=== PATIENT | male | born 1945 | race Caucasian/White ===

== ENCOUNTER 2025-03-02 20:41 | Inpatient (IN) | payer OTHER, SELFPAY ==
[2025-03-02 18:12] VITALS: BP 132/61
[2025-03-02 18:30] VITALS: BMI 32.6
[2025-03-02] MEDS: TYLENOL 1000 MG PO (18:46)
--- NOTE | 2025-03-02 18:47 | ED.GENMED ---
History of Present Illness
General
Chief Complaint: Fall
Source: patient and ambulance crew
Time Seen by Provider: 03/02/25 18:33
History of Present Illness
History of Present Illness:
80-year-old male with past medical history of insulin-dependent diabetes, CAD status postcardiac stenting presenting to the emergency department for evaluation after he reportedly fell onto the floor around 3 AM this morning while attempting to go
to the bathroom, found him around noon, unclear as to why he waited until 6:30 PM to contact ambulance to bring him to the hospital. Patient is without any complaints. Reportedly found by EMS covered in stool and has a full Claire catheter
bag. Patient states he did strike the right side of his forehead onto the ground but denies any loss of consciousness, vomiting, visual changes or headache. Patient states his did take his temperature while at home today and he was aware that
he had a fever but did not take anything for the fever. Patient does endorse a mild cough over the last couple of days when prompted. No known sick contacts, recent travel or recent antibiotics.
Past History
Past History
ED Past Medical History: CAD and IDDM
ED Past Surgical History: Cardiac
Social History
Tobacco: Non-smoker
Alcohol: None
Drug: None
Personal:
Living: with family
Review of Systems
Review of Systems
All Other Systems: ROS reviewed and negative except as documented in HPI and ROS
Phy Exam
Physical Exam
Physical Exam:
GENERAL: Alert , in no apparent distress, appears older than stated age
HEAD: Normocephalic atraumatic
EYE: Clear conjunctiva
NECK: Supple
ENT: o/p clr, dry mucous membranes
CARDIAC: Regular rate and rhythm, no murmur.
LUNGS: Clear breath sounds bilaterally, no acute respiratory distress, no wheezes/rales/rhonchi
ABDOMEN: Soft, without focal tenderness, no r/g, no cvat
NEUROLOGICAL: Alert and oriented x 3
SKIN: Warm and dry, skin intact.
MUSCULOSKELETAL: No edema, well perfused.
PSYCH: Normal and appropriate interaction.
Scores
Heart Failure Risk
Heart Failure Risk Score: Not Applicable
Heart Score for Chest Pain Patients
STEMI patient?: Not applicable
Withdrawal Assessment of Alcohol
Withdrawal Assessment Completed?: Not applicable
Sepsis
Sepsis Screening
Sepsis Assessment: Severe Sepsis
Sepsis Screening: ARF-Creatinine >2.0
Sepsis Screen
Sepsis Screen: Severe Sepsis
Date: 03/02/25
Time: 22:06
Course
Orders/Labs/Results
Orders:
Orders
03/02/25 18:34
CPK [Creatine Phosphokinase] Urgent
Complete Blood Count/With Diff Urgent
Comprehensive Metabolic Panel Urgent
Manual Differential Urgent
Urinalysis Reflex To Culture Urgent
Date Specimen was Collected: 03/02/25
Time Specimen was Collected: 18:31
Urine Microscopic Reflex Cult Urgent
Urine Culture Urgent
JUSTO Source: U
Specimen Description:
Date Specimen was Collected: 03/02/25
Time Specimen was Collected: 18:31
03/02/25 18:44
Acetaminophen [Tylenol] 1,000 mg .ROUTE .STK-MED ONE
03/02/25 18:46
CT Head W/o Iv Contrast Urgent
Comment:
Reason For Exam: fall, on effient
Acetaminophen [Tylenol] 1,000 mg PO NOW STA
CR Chest Portable - 1 View Urgent
Comment:
Reason For Exam: fall, weakness, fever
Reason Study Needs to be Portable: Patient Unstable
03/02/25 18:48
COVID-19 Antigen Urgent
Source: Nasal Swab
Influenza A+B Rapid Molecular Urgent
JUSTO Source: Nasal Swab
Specimen Description:
03/02/25 18:50
Electrocardiogram (*1) Urgent
Reason for Study: Fatigue / Weakness
EKG- Treatment ONCE
03/02/25 19:05
Cefepime HCl [Maxipime] 2,000 mg IV NOW STA
03/02/25 19:09
Sterile Water [Sterile Water For Injection] 10 ml .ROUTE .STK-MED ONE
03/02/25 19:13
0.9% Sodium Chloride 1000 ml [Nss] 1,000 ml IV BOLUS
03/02/25 19:23
Lactic Acid Q4H
Comment: CANCEL 2nd LACTIC ACID IF 1st LACTIC ACID IS LESS THAN 2
Blood Culture Q30M
JUSTO Source: Blood/Venous
Specimen Description:
Blood Culture Q30M
JUSTO Source: Blood/Venous
Specimen Description:
03/02/25 20:13
0.9% Sodium Chloride 1000 ml [Nss] 1,000 ml IV BOLUS
03/02/25 20:24
Admit/Transfer Patient As Directed
Co-Sign Provider:
Level of Care: Inpatient admission
Assign to:: IMU- Intermediate Care
Physician / Group: [facility]
Diagnosis: CAUTI, Sepsis
Reason for Hospitalization: CAUTI, Sepsis
Expected length of stay greater than two midnights?: Yes
ELOS- Estimated Length of Stay in days: 3
I certify the patient meets the requirements for IP care: Yes
03/02/25 20:25
PRN Pain Medication Management As Directed
May give lesser potent ordered pain med per pt: Yes
preference::
Protocol:: Medication orders for pain may be administered in a
manner that supports deferring to patient preference
when the pt is:
- Requesting an ordered lesser potent pain medication.
Least to most potent pain medications are defined
as: acetaminophen < NSAID < tramadol < opioids
(morphine, oxycodone, hydromorphone).
- Requesting a lesser dose of the same medication IF
ORDERED.
- Requesting a less intrusive route of administration
if both routes are prescribed by the provider (PO <
IV).
03/02/25 20:26
Code Status As Directed
Resuscitation Status: Full Code
03/02/25 23:00
Lactic Acid Q4H
Comment: CANCEL 2nd LACTIC ACID IF 1st LACTIC ACID IS LESS THAN 2
Abnormal Lab Results
03/02/25 03/02/25
18:34 19:23
WBC 19.4 H 10^3/uL
(4.8-10.8)
RBC 3.56 L 10^6/uL
(4.70-6.10)
Hgb 10.2 L g/dL
(13.0-18.0)
Hct 28.8 L %
(39.0-52.0)
Abs Neuts (Manual) 18.6 H 10^3/uL
(1.4-6.5)
Segmented Neutrophils 86 H %
(42-75)
Band Neutrophils 10 H %
(0-3)
Lymphocytes (Manual) 2 L %
(20-51)
Monocytes (Manual) 1 L %
(2-9)
Carbon Dioxide 15 L mmol/L
(22-30)
BUN 59 H mg/dl
(9-20)
Creatinine 3.2 H mg/dL
(0.7-1.3)
Glucose 279 H mg/dl
(70-99)
Lactic Acid 3.1 H mmol/L
(0.7-2.0)
Calcium 7.9 L mg/dl
(8.4-10.2)
AST 87 H U/L
(17-59)
Creatine Kinase 3996 H U/L
(55-170)
Albumin 3.2 L g/dl
(3.5-5.0)
Urine Ketones 1+ A
(Negative)
Ur Occult Blood Reflex 4+ A
(Negative)
Leukocyte Esterase Rfl 3+ A
(Negative)
Urine WBC (Reflex) >100 A /HPF
(0-5)
Urine Glucose 2+ A
(Negative)
Urine Albumin (Reflex) 3+ A
(Neg - Trace)
03/02/25 18:34
03/02/25 18:34
Vital Signs
Initial and Last Documented VS:
Initial Vital Signs
Temp Pulse Resp BP Pulse Ox
102.3 F H 87 18 132/61 92
03/02/25 18:12 03/02/25 18:12 03/02/25 18:12 03/02/25 18:12 03/02/25 18:12
Last Documented Vital Signs
Temp Pulse Resp BP Pulse Ox
102.3 F H 82 29 117/56 95
03/02/25 18:12 03/02/25 21:45 03/02/25 21:45 03/02/25 21:00 03/02/25 21:45
MDM/Problems Addressed
Differential Diagnosis Includes:
Accidental fall/generalized weakness, given fever I do suspect there is likely component of metabolic encephalopathy, question UTI given chronic indwelling Claire catheter versus pulmonary source given reported cough, electrolyte derangement,
rhabdomyolysis
MDM/Problems Addressed:
80-year-old male presenting to the emergency department for evaluation after he had a fall early this morning, on the ground for approximately 9 hours. Arrived to the ER here soiled in his own stool, urine Claire bag had not been changed at all
today. Noted to have a fever of 102.3 and had not been given any antipyretics. Patient does endorse a slight cough. He is on Effient for his CAD. Given the reported head injury will obtain a CT of the head. Infectious etiology suspected to be
cause of symptoms. Patient states that this was his first fall ever. Given patient's condition upon his arrival I do anticipate patient will require admission for further care.
*Radiology
Radiology exam reviewed: preliminary read by ED provider (Suspected bilateral lower lung pneumonia) and radiology read reviewed
*Pulse Oximetry
Patient hypoxic: no
*Critical Care Note
Total Time (30-74mins, 75-104mins- exclusive of procedures): Not Applicable
Patient Management
Discussion with other providers: Hospitalist
Escalation/DeEscalation of care consider admission/obs:
Patient's lactic acid greater than 3. He received 500 mL of normal saline on the way to the ER and 1 L total while here. Second liter was ordered which puts patient at his sepsis fluid bolus therapy. Based off of workup it appears patient could
have fever related to both urinary tract infection as well as pneumonia. He has rhabdomyolysis with acute kidney injury. He remains stable with otherwise normal vitals. Hospitalist team to admit.
ED Attending Note
-
Portions of this chart may have been created with voice recognition software.� Occasional wrong word or��sound alike� substitutions may have occurred due to the inherent limitations of voice recognition software.
Discharge Plan
Departure
Patient Disposition: Admit
Date of Disposition: 03/02/25
Time of Disposition: 19:26
Presentation/result/management discussed w/ accepting MD/DO: Hospitalist
Discharge Problem:
Sepsis, Rhabdomyolysis, FELIZ (acute kidney injury), Acute UTI, Pneumonia
Interventions
Interventions:
*Risk Screen - Suicide Last Done: 03/02/25 18:12
*General Assessment Last Done: 03/02/25 18:12
*Neglect/Abuse Screening Last Done: 03/02/25 18:12
*ED- Fall Risk Assessment Last Done: 03/02/25 18:12
*ED COVID-19 Vaccine History Last Done: 03/02/25 18:12
ED-Musculoskeletal Assessment Last Done: 03/02/25 18:28
ED- Neurological Assessment Last Done: 03/02/25 18:26
ED-Skin Assessment Last Done: 03/02/25 18:24
[2025-03-02 18:49] LABS: Hematocrit 28.8 % (39.0-52.0); Hemoglobin 10.2 g/dL (13.0-18.0); Mean Corp Hgb Conc. 35.4 g/dL (33.0-37.0); Mean Corpuscular Hgb 28.7 pg (27.0-31.0); Mean Corpuscular Volume 80.9 fL (80.0-94.0); Mean Platelet Volume 9.2 fL (7.4-10.4); Platelet Count 188 10^3/uL (130-400); Red Blood Cell Count 3.56 10^6/uL (4.70-6.10); Red Cell Dist. Width 14.1 % (11.5-14.5); White Blood Cell Count 19.4 10^3/uL (4.8-10.8)
[2025-03-02 19:00] VITALS: BP 127/54
[2025-03-02 19:01] LABS: ALT (SGPT) 32 U/L (0-50); AST (SGOT) 87 U/L (17-59); Albumin 3.2 g/dl (3.5-5.0); Alkaline Phosphatase 80 U/L (38-126); Blood Urea Nitrogen 59 mg/dl (9-20); Calcium 7.9 mg/dl (8.4-10.2); Carbon Dioxide 15 mmol/L (22-30); Chloride 107 mmol/L (98-107); Estimated Creatinine Clearance 23 ml/min; Glucose 279 mg/dl (70-99); Potassium 5.1 mmol/L (3.5-5.1); Sodium 137 mmol/L (135-145); Total Bilirubin 0.7 mg/dl (0.2-1.3); Total Protein 6.5 g/dl (6.3-8.2); eGFR 18.72
[2025-03-02 19:11] LABS: Creatine Phosphokinase 3996 U/L (55-170)
[2025-03-02 19:19] LABS: COVID-19 Antigen Negative (Negative)
[2025-03-02] MEDS: NSS 1000 IV ×3 (19:24→23:39)
[2025-03-02] MEDS: MAXIPIME 2000 MG IV (19:25)
[2025-03-02 19:28] LABS: Absolute Neutrophils -Man Diff 18.6 10^3/uL (1.4-6.5); Band Neutrophils 10 % (0-3); Lymphocytes 2 % (20-51); Metamyelocytes 1 % (-); Monocytes 1 % (2-9); Segmented Neutrophils 86 % (42-75)
[2025-03-02 19:29] LABS: Normal RBC Morphology Yes; Platelets Checked Yes; Total Cells Counted 100
[2025-03-02 19:55] LABS: Urine Albumin 3+ (Neg - Trace); Urine Bilirubin Negative (Negative); Urine Character Cloudy (Clear); Urine Color Yellow; Urine Glucose 2+ (Negative); Urine Ketone 1+ (Negative); Urine Leukocyte 3+ (Negative); Urine Nitrite Negative (Negative); Urine Occult Blood 4+ (Negative); Urine Urobilinogen Negative (Neg - 1+)
[2025-03-02 19:58] LABS: Lactic Acid 3.1 mmol/L (0.7-2.0)
[2025-03-02 20:00] VITALS: BP 122/59
[2025-03-02 20:21] LABS: Urine White Cell >100 /HPF (0-5)
--- NOTE | 2025-03-02 20:31 | HPS.HSE ---
Family Physician
-
Family Physician: NOT KNOW UNKNOWN - PT DOES
Chief Complaint
-
Fever, Fall, Malaise
History of Present Illness
Patient is an 80y M with PMH significant for ASCVD, DM-II and BPH who presents to ED for evaluation after fall early this AM. History obtained from patient and multiple family members at the bedside. Patient states that he was feeling somewhat
weak / tired yesterday. states that he had a fever at home of 103.7 and had a mild, hacking cough. He woke around 3 AM seated in a chair. He states that he 'slid' out of the chair and fell to the floor. He landed on his L elbow. He denies
striking his head or any LOC, etc. Patient was unable to get up off of the floor and remained there for about 12 hours. Family eventually convinced him to call for EMS and he was brought to the ED for further evaluation.
Patient was incontinent of stool during his time down.
He seemed SOB according to family - with noted conversational dyspnea.
He denies any chest pain, sore throat, abdominal pain He had N/V this AM while lying on the floor.
Patient states that he was seen by Dr. Hill at [facility] on Wednesday for chronic urinary issues / BPH. Claire catheter was reportedly placed at that time.
Patient states that his urine from the catheter has been 'brown' appearing since it was initially placed.
On arrival to the ED today, patient is noted to have grossly purulent urine in a leg bag.
Patient states that he has received most of his prior care at [facility]. No previous visits here.
His PCP is Dr. Malcom Guevara.
Medical History
Past Medical History
Past Medical History: Reports Other
Additional Past Medical History:
ASCVD
DM-II
Obesity
BPH / Urinary Retention
Past Surgical History: Reports Other
Additional Past Surgical History:
PTCA with Stents
Pilonidal Cyst
Social History
Tobacco: Non-smoker
Alcohol: None
Drug: None
Family History
Family History: Not pertinent
Allergies / Home Medications
Allergies reflects when Allergies were last updated in [employer].
Home Medications with original date entered in [employer]
Allergy/Medication List:
Allergies
Allergy/AdvReac Type Severity Reaction Status Date / Time
egg Allergy Hives Verified 03/02/25 18:27
tri Allergy Hives Uncoded 03/02/25 18:27
Home Medications
ibuprofen 800 mg tablet 800 mg PO Q8HPRN PRN mild pain 03/02/25
insulin aspar prot-insulin aspart 100 unit/mL (70-30) subcutaneous pen (Novolog Mix 70-30FlexPen U-100) 16 unit SC BID 03/02/25
prasugrel HCl 10 mg tablet 10 mg PO HS 03/02/25
rosuvastatin 20 mg tablet 20 mg PO DAILY 03/02/25
sacubitril 49 mg-valsartan 51 mg tablet (Entresto) 1 tab PO BID 03/02/25
sitagliptin phosphate 50 mg-metformin 1,000 mg tablet (Janumet) 1 tab PO BID 03/02/25
tamsulosin 0.4 mg capsule 0.4 mg PO BID 03/02/25
Review of Systems
-
History Source: Patient and Family
A 12 point ROS was completed and negative except as noted: Yes
Constitutional: Reports Fever, Fatigue and Chills
EENT: Denies Sore Throat
Respiratory: Reports Cough and Trouble Breathing
Cardiac: Denies Chest Pain or Palpitations
Abdomen/GI: Reports Nausea, Vomiting and Other (Fecal incontinence); Denies Abdominal Pain, Bloody Stools or Black Stools
: Reports Other (Claire draining purulent urine.)
Musculoskeletal: Reports Edema (decreased from usual baseline.); Denies Joint Pain
Neurological: Reports Weakness; Denies Dizzy or Headache
Psych: Denies Depression or Anxiety
Physical Exam
Vital Signs
Vital Signs
Temp Pulse Resp BP Pulse Ox
102.3 F H 89 29 122/59 96
03/02/25 18:12 03/02/25 20:00 03/02/25 19:30 03/02/25 20:00 03/02/25 19:45
Physical Exam
General: Other (Ill-appearing 80y M.)
HEENT: Other (Very dry MM. Neck supple.)
Respiratory: Clear; No Wheezes, Rales or Rhonchi
Cardiac: S1/S2 and Regular Rhythm; No Murmur
GI: Soft, Non Tender, Non Distended and Normal Bowel Sounds
Genito-urinary: Other (Claire in place with groslly purulent urine in leg bag. Suprapubic fullness. No CVAT.)
Musculoskeletal: No Clubbing, No Cyanosis and Other (Chronic LE edema appears improved from prior baseline (based on skin changes). )
Neuro: AO x 3 and Nonfocal/grossly intact
Laboratory Results
-
03/02/25 18:34
03/02/25 18:34
Laboratory Results
Lactic Acid 3.1 mmol/L (0.7-2.0) H 03/02/25 19:23
Total Bilirubin 0.7 mg/dl (0.2-1.3) 03/02/25 18:34
AST 87 U/L (17-59) H 03/02/25 18:34
ALT 32 U/L (0-50) 03/02/25 18:34
Alkaline Phosphatase 80 U/L (38-126) 03/02/25 18:34
Impression/Plan
-
A/P: Patient is an 80y M with PMH significant for ASCVD, DM-II and BPH who presents to ED for evaluation after fall at home, fever and malaise.
CAUTI
Sepsis secondary to the above
- Admit for further evaluation and treatment.
- Patient presents with fever, leukocytosis and grossly purulent urine via Claire catheter.
- Claire was placed only on Wednesday - check for evidence of retention and flush or replace catheter if needed.
- IV abx with cefepime pending culture data.
- Follow fever curve.
- Supportive care with IVFs, antipyretics, etc.
Fall at Home
Rhabdomyolysis
- Fall at 3 AM and on the floor for about 12 hours before EMS called.
- CPK elevation to 3996. FELIZ with 4+ blood on UA (RBCs not quantified due to too numerous WBCs).
- Continue IVF support and follow for changes in renal function / improvement in CPK levels.
- PT eval for gait safety / balance.
- Patient denies any significant pain, injury, trauma.
- CT head done in the ED was unremarkable.
FELIZ v CKD
- Given presentation, suspect component of FELIZ.
- SCr = 3.2 with no prior values for comparison.
- Send for records from PCP. Hold Entresto acutely. Avoid NSAIDs.
- Claire draining urine - check bladder scan and flush catheter or replace if needed.
- US for further evaluation.
- IVFs as noted above and follow for improvement in renal function.
BPH
Urinary Retention
- Patient states that Claire was newly placed on Wednesday at Dr. Hill's office at [facility].
- He reports that urine has appeared 'brown' since Claire placed.
- Maintain catheter for now.
- Continue tamsulosin.
- Will need follow-up with Urology after discharge.
Normocytic Anemia
- Unclear etiology / chronicity. No gross blood loss.
- Check iron studies, etc.
- Follow H&H for changes - especially with IVF resuscitation.
ASCVD
Chronic HF - Unknown Type
- Stable. No chest pain.
- Change Effient to ASA acutely.
- On Entresto but not chronic diuretics - hold acutely given FELIZ.
- Has chronic LE edema with evident recent improvement by exam.
- Follow I/Os, daily weights.
- Review outpatient records when available.
DM-II
- Labile glucose control per family.
- Hold PO medications acutely.
- Begin low-dose Lantus and follow glucose.
- Cover with SSI as needed.
- Update A1C.
DVT Prophylaxis: SCDs
Code Status: Full
[2025-03-02 21:00] VITALS: BP 117/56
[2025-03-02 22:00] VITALS: BP 117/57
[2025-03-02 23:04] LABS: Glucose - Point of Care 268 mg/dl (70-99)
[2025-03-02 23:11] VITALS: BMI 30.6
[2025-03-02] MEDS: LANTUS 0.08 UNITS SC (23:39)
[2025-03-03] VITALS (13 sets, daily range): BP systolic 101–114; BP diastolic 48–66; PULSE 74; O2SAT 96; BMI 30.9
[2025-03-03 00:24] LABS: Lactic Acid 1.9 mmol/L (0.7-2.0)
--- NOTE | 2025-03-03 01:23 | PTCARENOTE ---
Pt brought up by ED RN. Pt talking answering question appropriately. ED RN informed this RN Claire was just replaced down in ED. Pt having bloody urine output. After moving Pt to bed urine output turning to brown blood clots then to purulent
drainage. Bladder scan done with only 12ml showing. Pt having multiple abrasions and bruising from fall at home, see work list. Pt has no complaints at this time. Assessment care and vitals as charted.
[2025-03-03] MEDS: NSS 1000 IV ×2 (03:46→15:35)
[2025-03-03 05:27] LABS: Hematocrit 26.5 % (39.0-52.0); Hemoglobin 9.2 g/dL (13.0-18.0); Mean Corp Hgb Conc. 34.7 g/dL (33.0-37.0); Mean Corpuscular Hgb 28.1 pg (27.0-31.0); Mean Platelet Volume 9.7 fL (7.4-10.4); Platelet Count 172 10^3/uL (130-400); Red Blood Cell Count 3.27 10^6/uL (4.70-6.10); Red Cell Dist. Width 14.1 % (11.5-14.5); White Blood Cell Count 20.8 10^3/uL (4.8-10.8)
[2025-03-03 05:55] LABS: Iron < 20 ug/dl (49-181)
[2025-03-03 06:14] LABS: Blood Urea Nitrogen 59 mg/dl (9-20); Calcium 7.8 mg/dl (8.4-10.2); Carbon Dioxide 16 mmol/L (22-30); Chloride 111 mmol/L (98-107); Creatine Phosphokinase 3213 U/L (55-170); Estimated Creatinine Clearance 30 ml/min; Glucose 258 mg/dl (70-99); Potassium 5.1 mmol/L (3.5-5.1); Sodium 138 mmol/L (135-145); Total Iron Binding Capacity 169 ug/dl (261-462); eGFR 26.44
[2025-03-03 06:41] LABS: Vitamin B12 405 pg/ml (239-931)
[2025-03-03] MEDS: NOVOLOG FLEXPEN-MODERATE RESISTANCE 3 UNITS SC ×2 (07:55→16:55)
[2025-03-03] MEDS: LOW STRENGTH ASPIRIN 81 MG PO (07:56)
[2025-03-03] MEDS: DESENEX/MITRAZOL/ZEASORB 1 APPLIC TOPICAL ×2 (07:56→21:23)
[2025-03-03] MEDS: FLOMAX 0.4 MG PO ×2 (07:56→21:23)
[2025-03-03 08:05] LABS: Glucose - Point of Care 219 mg/dl (70-99)
--- NOTE | 2025-03-03 08:15 | W.PN.HOSP.TC ---
Today's Communication/Plan
-
Transfer to telemetry
Continue with IV antibiotics
Assessment / Plan
Assessment / Plan
A/P: Patient is an 80y M with PMH significant for ASCVD, DM-II and BPH who presents to ED for evaluation after fall at home, fever and malaise.
CAUTI
Sepsis secondary to the above
- Afebrile this morning. Hemodynamically stable. Nontoxic looking. Normalized lactic acid
- Patient presents with fever, leukocytosis and grossly purulent urine via Claire catheter on admission.
- Claire was placed only on Wednesday-draining well.
- IV abx with cefepime pending culture data.
- Follow fever curve.
- Supportive care
Fall at Home
Rhabdomyolysis
- Fall at 3 AM and on the floor for about 12 hours before EMS called.
- CPK elevation to 3996-slowly improving. FELIZ with 4+ blood on UA (RBCs not quantified due to too numerous WBCs).
- Continue IVF support and follow for changes in renal function / improvement in CPK levels.
- PT eval for gait safety / balance.
- Patient denies any significant pain, injury, trauma.
- CT head done in the ED was unremarkable.
FELIZ v CKD
- Given presentation, suspect component of FELIZ.
- SCr = 3.2 with no prior values for comparison.
- Send for records from PCP. Hold Entresto acutely. Avoid NSAIDs.
- Claire draining urine - check bladder scan and flush catheter or replace if needed.
- US for further evaluation.
- IVFs as noted above and follow for improvement in renal function.
-Improving creatinine-2.4 today
Metabolic acidosis with elevated anion gap-possibly combination of lactic acidosis and FELIZ. Improving creatinine. Persistently low bicarb and sodium bicarb tablets. Normalized lactic acid now.
BPH
Urinary Retention
- Patient states that Claire was newly placed on Wednesday at Dr. Hill's office at [facility].
- He reports that urine has appeared 'brown' since Claire placed.
- Maintain catheter for now.
- Continue tamsulosin.
- Will need follow-up with Urology after discharge.
Normocytic Anemia
- Unclear etiology / chronicity. No gross blood loss.
- Mental status suggests mixed picture. Check heme test stools
- Follow H&H for changes - especially with IVF resuscitation.
ASCVD with hx of prior stents
Chronic HF - Unknown Type
- Stable. No chest pain.
- cw Effient
- On Entresto but not chronic diuretics - hold acutely given FELIZ.
- Has chronic LE edema with evident recent improvement by exam.
- Follow I/Os, daily weights.
- Review outpatient records when available.
- Check a BNP with borderline low oxygen levels on chest x-ray raising concern of interstitial prominence.
DM-II
- Labile glucose control per family.
- Hold PO medications acutely.
- Begin low-dose Lantus and follow glucose.
- Cover with SSI as needed.
- Update A1C.
DVT Prophylaxis: SCDs
Code Status: Full
Transfer to telemetry
Total time spent on today's encounter was 52 minutes which included time spent in counseling the patient/family regarding diagnosis and treatment plan as listed above, goals of care, and symptom management. Case was discussed with nursing staff,
specialists, and care coordinators/case management. All labs and imaging personally reviewed by me. Remainder the time spent in detailed review of previous records, lab data, imaging, and other medical provider documentation.
Anticipated Discharge: > 48 hours
Subjective/Interval History
-
Date of Service: March 03, 2025
No fevers today. Feels better.
Denies any nausea vomiting or abdominal pain. No flank pain.
Denies shortness of breath or cough. No sore throat. No chest pain.
Patient states this urological problems are new. He sees a urologist for prostate issues. Last week in urologist office he needed to get a Claire catheter placed because of retention issues. Denies any prior history of UTIs.
Denies prior history of chronic kidney disease. Does not know his prior creatinine level.
Objective Data
-
Labs:
Laboratory Results
03/03/25
04:46
WBC 20.8 H
Hgb 9.2 L
Hct 26.5 L
Plt Count 172
Sodium 138
Potassium 5.1
Chloride 111 H
Carbon Dioxide 16 L
BUN 59 H
Creatinine 2.4 H
Glucose 258 H
Calcium 7.8 L
Vital Signs:
Vital Signs
Temp Pulse Resp BP Pulse Ox
98.3 F 66 19 110/58 96
03/03/25 07:25 03/03/25 06:00 03/03/25 06:00 03/03/25 06:00 03/03/25 06:00
I&O
03/02/25 03/03/25 03/04/25
06:59 06:59 06:59
Intake Total 1320 / 1320
Output Total 1999
Balance -680 / -680
Review of Systems
-
Constitutional: Denies Fever (Today)
EENT: Denies Sore Throat
Respiratory: Denies Cough
Neuro: Denies Dizzy
Physical Exam
-
General: Comfortable
HEENT: Moist Mucous Membranes
Respiratory: Crackles (Bibasilar), Non Labored Respirations and Other (This morning on 2 L of nasal cannula without any symptoms.); Negative Wheezes or Accessory Resp Muscle Use
Cardiac: Regular Rhythm and S1/S2
GI: Soft and Nontender
Musculoskeletal: Edema, Right Lower Extrem and Edema, Left Lower Extrem (1+. Bilateral lower extremity edema chronic per patient but not on diuretics.)
Neuro: AO x 3
Psych: Calm; Negative Confused
Data Reviewed
-
Labs: Labs Reviewed by me
[2025-03-03 09:00] LABS: Glycohemoglobin (HgbA1c) 7.3 % (4.0-5.6)
[2025-03-03] MEDS: NOVOLOG FLEXPEN-MODERATE RESISTANCE 1 UNITS SC (11:59)
[2025-03-03 12:09] LABS: Glucose - Point of Care 178 mg/dl (70-99)
[2025-03-03 12:36] LABS: NT-proBNP 7980 pg/ml
[2025-03-03] MEDS: NSS IV (15:01)
--- NOTE | 2025-03-03 15:09 | CM ---
CM met with pt at bedside.
Pt resides with spouse in a 3 SH with bedroom and bathroom on 2nd floor and FF to that floor.
Prior to admission, ind with ambulation. Occasionally uses a cane for downhill descents. Ind with adl's. + Acute Dialysis Registered Nurse.
Has no HC or SNF history.
Pt currently with a laura and on oxygen. Both new he reports.
Confirmed PCP is Malcom Guevara and pharmacy is [facility] [address] [place] [address].
DC dispo pending hospital progress.
[2025-03-03 17:05] LABS: Glucose - Point of Care 245 mg/dl (70-99)
[2025-03-03] MEDS: MAXIPIME 1000 MG IV (17:05)
[2025-03-03] MEDS: STERILE WATER FOR INJECTION 10 ML IV (17:05)
--- NOTE | 2025-03-03 19:13 | PTCARENOTE ---
Assumed care of patient at beginning of this shift from previous RN. Claire clamped for US; see updated results in [facility]. Claire draining yellow/white pus/ cloudy with sediment. Patient had one large, soft bm in commode. OOB to chair with PT/OT and
assisted to commode by this RN without difficulty. BNP resulted 7980; Dr Kowalski made aware via TT. Instructed to hold IVF. Patient instructed to curb water intake. Initially +2 edema to RLE and +1 edema to LLE. After being OOB, +2-3 BLE. Able to wean
off oxygen today with POx 95-96% on RA. Ox2, forgetful to time. See worklist for full assessment and vital signs.
[2025-03-03] MEDS: LANTUS 0.08 UNITS SC (21:28)
[2025-03-03] MEDS: EFFIENT 10 MG PO (21:31)
[2025-03-03 21:34] LABS: Glucose - Point of Care 216 mg/dl (70-99)
[2025-03-03 22:13] LABS: Blood Urea Nitrogen 54 mg/dl (9-20); Calcium 7.9 mg/dl (8.4-10.2); Carbon Dioxide 20 mmol/L (22-30); Chloride 109 mmol/L (98-107); Estimated Creatinine Clearance 42 ml/min; Glucose 224 mg/dl (70-99); Magnesium 2.5 mg/dl (1.6-2.3); Potassium 4.7 mmol/L (3.5-5.1); Sodium 136 mmol/L (135-145)
[2025-03-03 22:18] LABS: Hematocrit 32.5 % (39.0-52.0); Hemoglobin 11.3 g/dL (13.0-18.0); Mean Corp Hgb Conc. 34.8 g/dL (33.0-37.0); Mean Corpuscular Hgb 28.2 pg (27.0-31.0); Mean Platelet Volume 9.3 fL (7.4-10.4); Platelet Count 184 10^3/uL (130-400); Red Blood Cell Count 4.01 10^6/uL (4.70-6.10); Red Cell Dist. Width 14.3 % (11.5-14.5); White Blood Cell Count 14.8 10^3/uL (4.8-10.8)
[2025-03-03 22:22] LABS: Troponin I 0.036 ng/ml
--- NOTE | 2025-03-03 23:38 | PTCARENOTE ---
RN seeing rhythm change on tele strip. EKG done resulting as in Afib. Night ACCOUNT CLERK made aware, labs ordered. Pt vitals stable at this time, Pt asymptomatic with no complaints at this time. Repeat labs in the morning to trend Trop.
[2025-03-04] VITALS (13 sets, daily range): BP systolic 97–122; BP diastolic 48–73; BMI 30.6
[2025-03-04 03:42] LABS: Hematocrit 29.8 % (39.0-52.0); Hemoglobin 10.6 g/dL (13.0-18.0); Mean Corp Hgb Conc. 35.6 g/dL (33.0-37.0); Mean Corpuscular Hgb 28.6 pg (27.0-31.0); Mean Corpuscular Volume 80.3 fL (80.0-94.0); Mean Platelet Volume 9.7 fL (7.4-10.4); Platelet Count 175 10^3/uL (130-400); Red Blood Cell Count 3.71 10^6/uL (4.70-6.10); Red Cell Dist. Width 14.2 % (11.5-14.5)
[2025-03-04 04:19] LABS: Blood Urea Nitrogen 53 mg/dl (9-20); Calcium 7.8 mg/dl (8.4-10.2); Carbon Dioxide 18 mmol/L (22-30); Chloride 112 mmol/L (98-107); Estimated Creatinine Clearance 48 ml/min; Glucose 174 mg/dl (70-99); Potassium 4.5 mmol/L (3.5-5.1); Sodium 138 mmol/L (135-145); eGFR 46.48
[2025-03-04 04:25] LABS: Troponin I 0.038 ng/ml
[2025-03-04 07:42] LABS: Glucose - Point of Care 145 mg/dl (70-99)
[2025-03-04] MEDS: NOVOLOG FLEXPEN-MODERATE RESISTANCE SC (07:49)
[2025-03-04] MEDS: FLOMAX 0.4 MG PO ×2 (07:49→21:39)
[2025-03-04] MEDS: DESENEX/MITRAZOL/ZEASORB 1 APPLIC TOPICAL ×2 (07:50→21:39)
--- NOTE | 2025-03-04 08:58 | W.PN.HOSP.TC ---
Today's Communication/Plan
-
Repeat blood culture
Continue with IV antibiotics
Consult cardiology
Transfer to telemetry
Assessment / Plan
Assessment / Plan
A/P: Patient is an 80y M with PMH significant for ASCVD, DM-II and BPH who presents to ED for evaluation after fall at home, fever and malaise.
CAUTI
Bacteremic UTI-blood cultures showing Klebsiella oxytoca. Repeat cultures pending
Sepsis secondary to the above
- Afebrile. Hemodynamically stable. Nontoxic looking. Normalized lactic acid. White count improving
- Patient presents with fever, leukocytosis and grossly purulent urine via Claire catheter on admission.
- Claire was placed only on Wednesday-draining well.
- IV abx with cefepime pending culture data.
- Follow fever curve.
- Supportive care
Fall at Home
Rhabdomyolysis
- Fall at 3 AM and on the floor for about 12 hours before EMS called.
- CPK elevation to 3996-slowly improving. FELIZ with 4+ blood on UA (RBCs not quantified due to too numerous WBCs).
- Continue IVF support and follow for changes in renal function / improvement in CPK levels.
- PT eval for gait safety / balance.
- Patient denies any significant pain, injury, trauma.
- CT head done in the ED was unremarkable.
FELIZ v CKD
Bladder soft tissue mass
- Given presentation, suspect component of FELIZ.
- SCr = 3.2 with no prior values for comparison.
- Send for records from PCP. Hold Entresto acutely. Avoid NSAIDs.
- Claire draining urine
- US shows bladder abnormality-needs oral examination as patient thinks he had maybe a cystoscopy exam.
- Improving creatinine-1.5 today
-Hold further fluids
Metabolic acidosis with elevated anion gap-possibly combination of lactic acidosis and FELIZ. Improving creatinine. Normalized lactic acid now. Follow bicarb for now.
BPH
Urinary Retention
- Patient states that Claire was newly placed on Wednesday at Dr. Hill's office at [facility].
- He reports that urine has appeared 'brown' since Claire placed.
- Maintain catheter for now.
- Continue tamsulosin.
- Will need follow-up with Urology after discharge.
Normocytic Anemia
- Unclear etiology / chronicity. No gross blood loss.
- Mental status suggests mixed picture. Check heme test stools
- Follow H&H for changes - especially with IVF resuscitation.
ASCVD with hx of prior stents
Chronic HF - Unknown Type
- Stable. No chest pain.
- cw Effient
- On Entresto but not chronic diuretics - hold acutely given FELIZ.
- Has chronic LE edema with evident recent improvement by exam.
- Follow I/Os, daily weights.
- Review outpatient records when available.
- Elevated BNP but patient without any oxygen need and chest sounds clear. IV fluids have been discontinued. Hold diuretics as he is recovering from FELIZ.
-Check an echocardiogram.
New onset of atrial fibrillation-rate controlled.
Consult cardiology.
DM-II
- Labile glucose control per family.
- Hold PO medications acutely.
- Begin low-dose Lantus and follow glucose.
- Cover with SSI as needed.
- Hemoglobin A1c 7.3-will resume his home diabetic regimen on discharge
DVT Prophylaxis: SCDs
Code Status: Full
Transfer to telemetry
Discussed with RN
Anticipated Discharge: > 48 hours
Subjective/Interval History
-
Date of Service: March 04, 2025
Feeling much better.
Denies any fever or chills. Denies any nausea vomiting. Tolerating diet.
Denies any palpitations, chest pain or shortness of breath.
Objective Data
-
Labs:
Laboratory Results
03/03/25 03/04/25
21:44 03:30
WBC 14.8 H 12.0 H
Hgb 11.3 L D 10.6 L
Hct 32.5 L 29.8 L
Plt Count 184 175
Sodium 136 138
Potassium 4.7 4.5
Chloride 109 H 112 H
Carbon Dioxide 20 L 18 L
BUN 54 H 53 H
Creatinine 1.7 H 1.5 H
Glucose 224 H 174 H
Calcium 7.9 L 7.8 L
Vital Signs:
Vital Signs
Temp Pulse Resp BP Pulse Ox
98.1 F 79 30 106/62 97
03/04/25 07:25 03/04/25 06:00 03/04/25 06:00 03/04/25 06:00 03/04/25 06:00
I&O
03/03/25 03/04/25 03/05/25
06:59 06:59 06:59
Intake Total 1320 / 1320 240 / 240
Output Total 1999 / 1999 3050 / 3050 700 / 700
Balance -680 / -680 -2810 / -2810 -700 / -700
Physical Exam
-
General: Comfortable
Respiratory: Clear to Auscultation and Non Labored Respirations; Negative Accessory Resp Muscle Use
Cardiac: S1/S2 and Irregular Rhythm; Negative Tachycardic
GI: Soft
Musculoskeletal: Edema, Right Lower Extrem and Edema, Left Lower Extrem
Neuro: AO x 3
Psych: Calm; Negative Confused
Data Reviewed
-
Labs: Labs Reviewed by me
[2025-03-04 10:55] LABS: Troponin I 0.028 ng/ml
--- NOTE | 2025-03-04 11:04 | PTCARENOTE ---
Assumed care of patient at beginning of this shift from previous RN. Patient now in afib; Dr Kowalski made aware when on unit to see patient. +2 edema noted BLE; patient agreeable to keep elevated when in chair. 1 assist OOB to commode and chair. Fine
crackles noted bibasilar; denies SOB. POx 93-96% on RA. See worklist for full assessment and vital signs.
--- NOTE | 2025-03-04 11:35 | CON.CAR ---
Consultation
Consultation Request
Date/Time Consultation Requested: 03/04/25
Date/Time Consultation Performed: 03/04/25
Reason for Consultation: Atrial fibrillation
Medical History
-
Chief Complaint: Sepsis
History of Present Illness:
Patient is an 80y M with PMH significant for ASCVD, DM-II and BPH who presents to ED for evaluation after fall at home, fever and malaise with indwelling foleys catheter and Bacteremic UTI-blood cultures showing Klebsiella oxytoca.
He was hospitalized for complex UTI and spesis. He had a fall at home in setting of sepsis and was in Rhabdomyolysis at the time of arrival. His Fall was at 3 AM and on the floor for about 12 hours before EMS called. CPK elevation to 3996-slowly
improving. FELIZ with 4+ blood on UA (RBCs not quantified due to too numerous WBCs)
Patient had FELIZ and was suspected to have CKD as well with acute on chronic component. Claire draining urine and US shows bladder abnormality - Bladder soft tissue mass-needs oral examination pending work up including cystoscopy exam.
He presented in Metabolic acidosis with elevated anion gap-possibly combination of lactic acidosis and FELIZ. He has CHF- chronic likely HFpEF. Has CAD with multiple stents. On Effient. On Entresto but holding diuretics now.
CHADSVasc 6- age, HTN, DM, CAD, CHF
With CKD and age, his ELiquis dose is 2,5 mg BID.
Past Medical History
Past Medical History: CAD (h/p stents. No detail hx or exact location of stents. ), CHF, HTN, Hypercholesterolemia, NIDDM and Other (BPH)
Social History
Tobacco: Non-Smoker
Alcohol: None
Drug: None
Family History
Family History: Reviewed & Not Pertinent
Allergies / Home Medications
Allergy/AdvReac Type Severity Reaction Status Date / Time
egg Allergy Hives Verified 03/02/25 18:27
tri Allergy Hives Uncoded 03/02/25 18:27
�Medication �Instructions �Recorded �Confirmed �Type
ibuprofen 800 mg tablet 800 mg PO Q8HPRN PRN mild pain 03/02/25 03/02/25 History
insulin aspar prot-insulin aspart 16 unit SC BID 03/02/25 03/02/25 History
100 unit/mL (70-30) subcutaneous
pen (Novolog Mix 70-30FlexPen
U-100)
prasugrel HCl 10 mg tablet 10 mg PO HS 03/02/25 03/02/25 History
rosuvastatin 20 mg tablet 20 mg PO DAILY 03/02/25 03/02/25 History
sacubitril 49 mg-valsartan 51 mg 1 tab PO BID 03/02/25 03/02/25 History
tablet (Entresto)
sitagliptin phosphate 50 1 tab PO BID 03/02/25 03/02/25 History
mg-metformin 1,000 mg tablet
(Janumet)
tamsulosin 0.4 mg capsule 0.4 mg PO BID 03/02/25 03/02/25 History
Review of Systems
-
All other systems: Negative unless noted
Physical Exam
Vital Signs
Temp Pulse Resp BP Pulse Ox
98.1 F 86 17 116/52 95
03/04/25 07:25 03/04/25 10:00 03/04/25 10:00 03/04/25 10:00 03/04/25 10:36
Lab Results
03/04/25 03:30
03/04/25 03:30
Troponin I 0.028 ng/ml D 03/04/25 09:50
Uyn-V-Lmxxhyitkyn Pept Cancelled 03/03/25 09:44
Physical Exam
General: Well Developed, Well Nourished and No Apparent Distress
HEENT: Normocephalic, Anicteric and Moist Mucous Membranes
Respiratory: Crackles and Non Labored Respirations
Cardiac: S1/S2, Irregular Rhythm and Murmur
GI: Soft, Non Distended and Normal Bowel Sounds
Musculoskeletal: No Clubbing, No Cyanosis and No Edema
Skin: Warm and Dry
Neuro: Awake, Alert, Oriented, AO x 3 and No Motor Deficits
Psych: Calm
Impression / Plan
-
80 yrs old man with HTN, DM, HLP, CAD s.p stents, CHF, usually followed by [place] presented with rhabdomyolysis with FELIZ and resolving renal injury but has gone into atrial fibrillation
Atrial fibrillation
- CHADSvasc score of 6
- FELIZ is resolving and Cr has come down from 3.2 to 1.5 now
- Unclear baseline.
- With higher risk of stroke, woudl recommend chronic anticoagulation.
- With ongoing infection and rhabdo, no plan for cardioversion at this time.
- With CKD and age, he needs to be on lower dose of Eliquis 2.5 mg BID.
- If Cr continues to improve, he might need to be on a higher dose.
- On Effient. Will continue with Eliquis.
- Rates are well controlled without any negative chronotropic agents. Indicative of possible AV blair disease.
CHF
-Unclear etiology - possible HFpEF
- Obtain records from [place]
- ECHO in AM.
UTI
- On Cefepime.
Data Reviewed
-
EKG: Tracing Personally Visualized and interpreted
Radiology: Image Personally Visualized and interpreted and Report Reviewed by me
CT Scan: Report Reviewed by me
Medical Tests (Nuc Med, Echo etc): Image Personally Visualized and interpreted
Labs: Labs Reviewed by me
Old Records: Reviewed
[2025-03-04] MEDS: NOVOLOG FLEXPEN-MODERATE RESISTANCE 3 UNITS SC (11:41)
[2025-03-04 11:43] LABS: Glucose - Point of Care 246 mg/dl (70-99)
[2025-03-04 16:42] LABS: Glucose - Point of Care 272 mg/dl (70-99)
[2025-03-04] MEDS: NOVOLOG FLEXPEN-MODERATE RESISTANCE 5 UNITS SC (17:10)
[2025-03-04] MEDS: MAXIPIME 1000 MG IV (17:42)
[2025-03-04] MEDS: STERILE WATER FOR INJECTION 10 ML IV (17:42)
[2025-03-04 19:31] LABS: Troponin I 0.022 ng/ml
[2025-03-04] MEDS: ELIQUIS 2.5 MG PO (21:39)
[2025-03-04] MEDS: EFFIENT 10 MG PO (21:39)
[2025-03-04] MEDS: LANTUS 0.12 UNITS SC (21:39)
[2025-03-04 21:50] LABS: Glucose - Point of Care 239 mg/dl (70-99)
--- NOTE | 2025-03-04 22:23 | PTCARENOTE ---
Pt being transferred to . Report give to SHERIN Etienne. Pt aware of transfer. Pt has no complaints at this time.
--- NOTE | 2025-03-04 22:45 | PTCARENOTE ---
Received pt from IMU via wheelchair. Pt alert, oriented X3, calm and cooperative, in no distress. Pt assisted w/RW from the wheelchair to bed. Pt oriented to the room, call andrade within reach, bed alarm in placed. Pt on Afib on telemonitor. VSS
(T=98, HR=76, RR=18, YD=052/67, SpO2=94% on RA). Pt denies pain, or SOB. Will continue to monitor the pt.
[2025-03-05 03:57] VITALS: BP 126/68
[2025-03-05 06:00] VITALS: BMI 29.4
[2025-03-05 06:55] VITALS: BP 111/58
[2025-03-05 07:10] LABS: Hematocrit 28.6 % (39.0-52.0); Mean Corpuscular Hgb 27.9 pg (27.0-31.0); Mean Corpuscular Volume 79.9 fL (80.0-94.0); Platelet Count 153 10^3/uL (130-400); Red Blood Cell Count 3.58 10^6/uL (4.70-6.10); White Blood Cell Count 7.1 10^3/uL (4.8-10.8)
[2025-03-05 07:28] LABS: Blood Urea Nitrogen 46 mg/dl (9-20); Calcium 7.8 mg/dl (8.4-10.2); Carbon Dioxide 19 mmol/L (22-30); Chloride 114 mmol/L (98-107); Estimated Creatinine Clearance 58 ml/min; Glucose 182 mg/dl (70-99); Sodium 140 mmol/L (135-145); eGFR > 60.00
[2025-03-05 08:03] LABS: Glucose - Point of Care 200 mg/dl (70-99)
[2025-03-05] MEDS: ELIQUIS 2.5 MG PO (09:37)
[2025-03-05] MEDS: FLOMAX 0.4 MG PO ×2 (09:37→21:57)
[2025-03-05] MEDS: DESENEX/MITRAZOL/ZEASORB 1 APPLIC TOPICAL ×2 (09:38→21:55)
[2025-03-05] MEDS: NOVOLOG FLEXPEN-MODERATE RESISTANCE 3 UNITS SC (09:38)
--- NOTE | 2025-03-05 10:55 | CARDSERVLU ---
Echocardiogram with [facility] completed after protocol screening completed. Allergies verified.
Patent IV site: _L FA____
IV site flushed with 0.9% NaCl pre and post administration.
Diluted bolus method utilized to enhance visualization of ventricular delgado.
Total volume given: _2.5___ mL
Patient tolerated all procedures well without complications.
--- NOTE | 2025-03-05 11:05 | W.PN.CD ---
Today's Communication / Plan
-
Move effient to Plavix
Increase Eliquis to 5 BID
For Echo
Review records when they arrive
Impression / Plan
-
80 yrs old man with HTN, DM, HLP, CAD s.p stents, CHF, usually followed by [place] presented with rhabdomyolysis with FELIZ and resolving renal injury but has gone into atrial fibrillation
New atrial fibrillation, persisting
- Eliquis dose is now 5 bid as Cr less than 2 -> increase to 5 BID
- Will not pursue sinus here, will have him review options with his long standing trainer
- Rates OK w/o meds
CAD
- On Effient => move to Plavix as that is the usual agent used with oral anticoagulation
- Last PCI/stent was Jun 2024 to LAD per patient, typical Plavix can be stopped at the 1 yr rosalia from stent => I reviewed with pt and told him sometimes Plavix might be continued longer and he should discuss with his trainer
Hx Heart failure
-Unclear etiology, possible HFpEF
- Obtain records from [place]
- For echo
UTI
- On Cefepime.
Subjective: No CP or palps
Physical Exam
Vital Signs/Labs
Vital Signs
Temp Pulse Resp BP Pulse Ox
98.7 F 84 18 111/58 94
03/05/25 06:55 03/05/25 06:55 03/05/25 06:55 03/05/25 06:55 03/05/25 09:00
03/04/25 03/05/25 03/06/25
06:59 06:59 06:59
Actual Weight 102.1 kg 98.231 kg
03/05/25 07:01
03/05/25 07:01
Magnesium 2.5 mg/dl (1.6-2.3) H 03/03/25 21:44
Magnesium Cancelled 03/03/25 21:44
TSH 3.50 uIU/ml (0.47-4.68) 03/03/25 21:44
03/03/25 03/03/25
04:46 09:44
Vae-H-Tgprlvowgau Pept 7980 Cancelled
LAB Results
03/03/25 03/04/25 03/04/25
21:44 03:30 09:50
Troponin I 0.036 H* 0.038 H* 0.028 D
03/04/25
18:58
Troponin I 0.022
Physical Exam
Constitutional: No acute distress
EENT: Anicteric
Cardiovascular: Diastolic murmur absent and Rhythm/rate is irregular
Respiratory: Respiratory effort normal and Lungs clear to auscul.
GI: Soft and Distention absent
Neuro/Psych: AO x 3
Data Reviewed
-
Date of Service: March 05, 2025
[2025-03-05 11:23] VITALS: BP 119/61
[2025-03-05 11:52] LABS: Glucose - Point of Care 287 mg/dl (70-99)
[2025-03-05] MEDS: NOVOLOG FLEXPEN-MODERATE RESISTANCE 5 UNITS SC ×2 (12:15→17:14)
[2025-03-05 15:02] LABS: Creatine Phosphokinase 275 U/L (55-170)
[2025-03-05 15:45] VITALS: BP 117/67
[2025-03-05 16:52] LABS: Glucose - Point of Care 255 mg/dl (70-99)
[2025-03-05] MEDS: STERILE WATER FOR INJECTION 10 ML IV (17:14)
[2025-03-05] MEDS: MAXIPIME 1000 MG IV (17:14)
--- NOTE | 2025-03-05 19:00 | W.PN.HOSP.TC ---
Addendum entered and electronically signed by Lucy Cooper MD 03/05/25 20:40:
I saw and evaluated the patient independently. I reviewed the resident�s note and agree with findings and plan as documented by Dr. Neal.
GENERAL: well developed, well nourished, male in no apparent distress
HEENT: NC/AT
HEART:irreg irreg
LUNGS : clear to auscultation bilaterally
ABDOM: soft, nontender, nondistended, + bowel sounds
EXT: no cyanosis, clubbing, or edema
NEUROLOGIC: grossly intact
: chronic laura cath
sepsis (POA) due to Klebsiella CAUTI with bacteremia and lactic acidosis-- trend lactic acid--was not normalized--cont cefepime--apprec ID--catheter changed prior to culture
Rhabdomyolysis-- due to fall and being on the floor---follow CPK--Hold all nephrotoxic drugs that are renally cleared
FELIZ vs CKD stage unknown--creat 1.1--improved--Hold Entresto acutely. Avoid NSAIDs
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
BPH with Urinary Retention - Patient states that Laura was newly placed on Wednesday at Dr. Hill's office at [facility]--Continue to maintain catheter for now - Continue tamsulosin.
ASCVD with hx of prior stents--Chronic HFpEF--no acute exacerbation--in fact, needed IVF - On Entresto but not chronic diuretics - hold acutely given FELIZ--daily weights, I/Os- Echocardiogram shows left ventricular ejection fraction of 50 to 55% and
no significant valve disease. Also shows atrial fibrillation as the rhythm.
New onset of atrial fibrillation--rate controlled--apprec cards--cont eliquis and plavix
DM-type II--restart oral meds as able- Begin low-dose Lantus and follow glucose - Cover with SSI as needed - Hemoglobin A1c 7.3--will resume his home diabetic regimen on discharge
DVT Proph-- Eliquis
Code Status-- Full code
Original Note:
Today's Communication/Plan
-
Follow-up with urology
Continue to trend CPK levels
Continue to trend BMP
Assessment / Plan
Assessment / Plan
CAUTI due to klesbsiela infection
Sepsis secondary to the above
- Afebrile. Hemodynamically stable. Nontoxic looking. Normalized lactic acid. White count improving
- Patient presents with fever, leukocytosis and grossly purulent urine via Laura catheter on admission.
- Laura was placed only on Wednesday-draining well
- Continue IV cefepime
- Follow fever curve.
- Supportive care
Rhabdomyolysis
- Patient is stable
- Discontinue fluids
-Maintain urine output status of more than 200 mL/h
-Monitor creatinine kinase, BMP, LFTs and watch for rising creatinine phosphorus, potassium, calcium
- CPK is 275 which is a decrease from 369 on admission. FELIZ with 4+ blood on UA (RBCs not quantified due to too numerous WBCs).
- PT eval
- CT head normal
-Hold all nephrotoxic drugs that are renally cleared
- Patient denies any significant pain, injury, trauma.
FELIZ v CKD
Bladder soft tissue mass
- Send for records from PCP. Hold Entresto acutely. Avoid NSAIDs.
- Laura draining urine
- Improving creatinine-1.1 today
- Hold further fluids
- Consulted urology to investigate bladder soft tissue mass seen on renal ultrasound
BPH
Urinary Retention
- Patient states that Laura was newly placed on Wednesday at Dr. Hill's office at [facility].
- Catheter is draining well and clear
-Continue to maintain catheter for now.
- Continue tamsulosin.
-Urology is consulted
ASCVD with hx of prior stents
Chronic HF
- Stable
- On Entresto but not chronic diuretics - hold acutely given FELIZ.
- Has chronic LE edema with evident recent improvement by exam.
- Follow I/Os, daily weights.
- Echocardiogram shows left ventricular ejection fraction of 50 to 55% and no significant valve disease. Also shows atrial fibrillation as the rhythm.
New onset of atrial fibrillation-rate controlled.
-Physical exam shows irregular rhythm
-Confirmed on both EKG and echo
-Rate is 72 and well-controlled
-No chest pain, palpitations, dyspnea
-Cardiology is consulted
-Encourage increased Eliquis dose to 5 Mg twice daily
-Switched Effient to Plavix
DM-II
- Hold PO medications acutely.
- Begin low-dose Lantus and follow glucose.
- Cover with SSI as needed.
- Hemoglobin A1c 7.3-will resume his home diabetic regimen on discharge
DVT Prophylaxis: Eliquis
Code Status: Full
Transfer to telemetry
Discussed with RN
Anticipated Discharge: 24 - 48 hours
Subjective/Interval History
-
Date of Service: March 05, 2025
80-year-old male, full code, with a past medical history of ASCVD, diabetes mellitus type 2, obesity, BPH/urinary retention presented to the emergency department on after falling onto the floor attempting to go to the bathroom. Previous days
he felt weak tired and and had an at home temperature measurement of 103.7 with a cough measured by his daughter. He claimed to strike the right side of his forehead onto the ground. Had a chronic indwelling Laura Laura placed on February 26 with
[facility] at [facility] for his BPH.
Objective Data
-
Labs:
Laboratory Results
03/05/25
07:01
WBC 7.1
Hgb 10.0 L
Hct 28.6 L
Plt Count 153
Sodium 140
Potassium 4.0
Chloride 114 H
Carbon Dioxide 19 L
BUN 46 H
Creatinine 1.1
Glucose 182 H
Calcium 7.8 L
Vital Signs:
Vital Signs
Temp Pulse Resp BP Pulse Ox
97.7 F 72 18 117/67 98
03/05/25 15:45 03/05/25 15:45 03/05/25 15:45 03/05/25 15:45 03/05/25 15:45
I&O
03/04/25 03/05/25 03/06/25
06:59 06:59 06:59
Intake Total 240 / 240 700 / 700 720 / 720
Output Total 3050 / 3050 3875 / 3875 1550 / 1550
Balance -2810 / -2810 -3175 / -3175 -830 / -830
Review of Systems
-
History Source: Patient
Constitutional: Denies Fever, Fatigue or Chills
Respiratory: Denies Cough, Trouble Breathing or Wheezing
Cardiac: Denies Chest Pain, Palpitations, Syncope or Orthopnea
Abdomen/GI: Denies Abdominal Pain, Nausea, Vomiting, Diarrhea or Constipated
Physical Exam
-
General: Well Developed
Respiratory: Clear to Auscultation
Cardiac: Irregular Rhythm
GI: Soft, Nontender and Nondistended
Skin: Warm and Dry
Neuro: Awake, Alert, Oriented and AO x 3
Psych: Calm
Data Reviewed
-
Labs: Labs Reviewed by me and Discussed with Physician
[2025-03-05 19:21] VITALS: BP 122/63
[2025-03-05 21:04] LABS: Glucose - Point of Care 272 mg/dl (70-99)
[2025-03-05] MEDS: ELIQUIS 5 MG PO (21:56)
[2025-03-05] MEDS: LANTUS 0.12 UNITS SC (21:59)
[2025-03-05 23:20] VITALS: BP 129/64
[2025-03-06 03:12] VITALS: BP 114/63
[2025-03-06 06:00] VITALS: BMI 29.5
[2025-03-06 07:30] VITALS: BP 130/60
[2025-03-06 07:37] LABS: Glucose - Point of Care 185 mg/dl (70-99)
[2025-03-06 07:51] LABS: Hematocrit 29.1 % (39.0-52.0); Hemoglobin 10.1 g/dL (13.0-18.0); Mean Corp Hgb Conc. 34.7 g/dL (33.0-37.0); Mean Corpuscular Hgb 28.1 pg (27.0-31.0); Mean Corpuscular Volume 80.8 fL (80.0-94.0); Mean Platelet Volume 9.9 fL (7.4-10.4); Platelet Count 169 10^3/uL (130-400); White Blood Cell Count 6.8 10^3/uL (4.8-10.8)
--- NOTE | 2025-03-06 07:51 | W.PN.HOSP.TC ---
Addendum entered and electronically signed by Lucy Cooper MD 03/06/25 17:58:
I saw and evaluated the patient independently. I reviewed the resident�s note and agree with findings and plan as documented by Dr. Neal.
GENERAL: well developed, well nourished, male in no apparent distress
HEENT: NC/AT
HEART:irreg irreg
LUNGS : clear to auscultation bilaterally
ABDOM: soft, nontender, nondistended, + bowel sounds
EXT: no cyanosis, clubbing, or edema
NEUROLOGIC: grossly intact
: chronic laura cath
sepsis (POA) due to Klebsiella CAUTI with bacteremia and lactic acidosis-- resolved-- cefepime to augmentin (14 days from first negative blood culture)--catheter changed prior to culture
Traumatic Rhabdomyolysis/nonischemic myocardial injury-- due to fall and being on the floor---resolved CPK--Hold all nephrotoxic drugs that are renally cleared
FELIZ vs CKD stage unknown--resolved--Hold Entresto acutely. Avoid NSAIDs
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
BPH with Urinary Retention - Patient states that Laura was newly placed on Wednesday at Dr. Hill's office at [facility]--Continue to maintain catheter for now - Continue tamsulosin.
ASCVD with hx of prior stents--Chronic HFpEF--no acute exacerbation - On Entresto but not chronic diuretics --daily weights, I/Os- Echocardiogram shows left ventricular ejection fraction of 50 to 55% and no significant valve disease. Also shows
atrial fibrillation as the rhythm.
New onset of atrial fibrillation--rate controlled--apprec cards--cont eliquis and plavix
DM-type II--restart oral meds as able- Begin low-dose Lantus and follow glucose - Cover with SSI as needed - Hemoglobin A1c 7.3--will resume his home diabetic regimen on discharge
DVT Proph-- Eliquis
Code Status-- Full code
ok for d/c
Original Note:
Today's Communication/Plan
-
- pt is being discharged today home with home health
Assessment / Plan
Assessment / Plan
Patient is being discharged today
CAUTI due to klesbsiela infection
Sepsis secondary to the above
- Afebrile. Hemodynamically stable. Nontoxic looking. Normalized lactic acid. White count improving
- Patient presents with fever, leukocytosis and grossly purulent urine via Laura catheter on admission.
- Laura was placed only on Wednesday-draining well
- Follow fever curve.
- Start on Augmentin for 14 days for outpatient, EKG was checked and QTC interval is normal
- Supportive care
Rhabdomyolysis
- Patient is stable
- Discontinue fluids
-Maintain urine output status of more than 200 mL/h
-Monitor creatinine kinase, BMP, LFTs and watch for rising creatinine phosphorus, potassium, calcium
- CPK is 275 which is a decrease from 369 on admission. FELIZ with 4+ blood on UA (RBCs not quantified due to too numerous WBCs).
- PT eval
- CT head normal
-Hold all nephrotoxic drugs that are renally cleared
- Patient denies any significant pain, injury, trauma.
FELIZ v CKD
Bladder soft tissue mass
- Send for records from PCP. Hold Entresto acutely. Avoid NSAIDs.
- Laura draining urine
- Improving creatinine-1.1 today
- Hold further fluids
- Consulted urology to investigate bladder soft tissue mass seen on renal ultrasound
BPH
Urinary Retention
- Patient states that Laura was newly placed on Wednesday at Dr. Hill's office at [facility].
- Catheter is draining well and clear
-Continue to maintain catheter for now.
- Continue tamsulosin.
-Urology is consulted
ASCVD with hx of prior stents
Chronic HF
- Stable
- On Entresto but not chronic diuretics - hold acutely given FELIZ.
- Has chronic LE edema with evident recent improvement by exam.
- Follow I/Os, daily weights.
- Echocardiogram shows left ventricular ejection fraction of 50 to 55% and no significant valve disease. Also shows atrial fibrillation as the rhythm.
New onset of atrial fibrillation-rate controlled.
-Physical exam shows irregular rhythm
-Confirmed on both EKG and echo
-Rate is 72 and well-controlled
-No chest pain, palpitations, dyspnea
-Cardiology is consulted
-Encourage increased Eliquis dose to 5 Mg twice daily
-Switched Effient to Plavix
DM-II
- Hold PO medications acutely.
- Begin low-dose Lantus and follow glucose.
- Cover with SSI as needed.
- Hemoglobin A1c 7.3-will resume his home diabetic regimen on discharge
DVT Prophylaxis: Eliquis
Code Status: Full
Transfer to telemetry
Discussed with RN
Anticipated Discharge: Today
Subjective/Interval History
-
Date of Service: March 06, 2025
80-year-old male, full code, with a past medical history of ASCVD, diabetes mellitus type 2, obesity, BPH/urinary retention presented to the emergency department on after falling onto the floor attempting to go to the bathroom. Previous days
he felt weak tired and and had an at home temperature measurement of 103.7 with a cough measured by his daughter. He claimed to strike the right side of his forehead onto the ground. Had a chronic indwelling Laura Laura placed on February 26 with
Suge[facility] at [facility] for his BPH.
Objective Data
-
Labs:
Laboratory Results
03/06/25
07:08
WBC Pending
Hgb Pending
Hct Pending
Plt Count Pending
Sodium Pending
Potassium Pending
Chloride Pending
Carbon Dioxide Pending
BUN Pending
Creatinine Pending
Glucose Pending
Calcium Pending
Vital Signs:
Vital Signs
Temp Pulse Resp BP Pulse Ox
98.5 F 76 20 114/63 96
03/06/25 03:12 03/06/25 03:12 03/06/25 03:12 03/06/25 03:12 03/06/25 03:12
I&O
03/05/25 03/06/25 03/07/25
06:59 06:59 06:59
Intake Total 700 / 700 1680 / 1680
Output Total 3875 / 3875 3250 / 3250
Balance -3175 / -3175 -1570 / -1570
Review of Systems
-
History Source: Patient
Constitutional: Denies Fever, Fatigue or Chills
Respiratory: Denies Cough, Trouble Breathing or Wheezing
Cardiac: Denies Chest Pain, Palpitations, Syncope or Orthopnea
Abdomen/GI: Denies Abdominal Pain, Nausea, Vomiting, Diarrhea or Constipated
Physical Exam
-
General: Well Developed
Respiratory: Clear to Auscultation
Cardiac: Irregular Rhythm
GI: Soft, Nontender and Nondistended
Genito-urinary: Laura
Skin: Warm and Dry
Neuro: Awake, Alert, Oriented and AO x 3
Psych: Calm
Data Reviewed
-
Labs: Labs Reviewed by me and Discussed with Physician
[2025-03-06 08:02] LABS: Blood Urea Nitrogen 37 mg/dl (9-20); Carbon Dioxide 20 mmol/L (22-30); Chloride 112 mmol/L (98-107); Estimated Creatinine Clearance 64 ml/min; Glucose 173 mg/dl (70-99); Sodium 139 mmol/L (135-145); eGFR > 60.00
[2025-03-06 08:22] LABS: Creatine Phosphokinase 137 U/L (55-170)
[2025-03-06] MEDS: PLAVIX 75 MG PO (08:37)
[2025-03-06] MEDS: ELIQUIS 5 MG PO (08:37)
[2025-03-06] MEDS: FLOMAX 0.4 MG PO (08:37)
[2025-03-06] MEDS: NOVOLOG FLEXPEN-MODERATE RESISTANCE 1 UNITS SC (08:37)
[2025-03-06] MEDS: DESENEX/MITRAZOL/ZEASORB 1 APPLIC TOPICAL (08:38)
--- NOTE | 2025-03-06 09:14 | PN.CDI ---
CDI
- -
CDI:
Physician Documentation Request
Admit Date: 03/02/25 20:41
Dear Doctor,
Please review the following and provide your response in the progress notes.
Clinical Indicators:
- Patient admit after he reportedly fell on floor and remained there for extended period of time
- per H&P pmh ASCVD
- Troponin labs:
Laboratory Tests
03/03/25 03/04/25 03/04/25
21:44 03:30 09:50
Troponin I 0.036 H* 0.038 H* 0.028 D
Please clarify the following regarding the documented elevated troponins:
Non-ischemic myocardial injury
Clinically insignificant abnormal lab value
Other (please specify)
Use of terms such as suspected, likely, concern for, or probable (associated with a specific diagnosis that is being evaluated, monitored, or treated as if it exists) are acceptable and can be coded in the inpatient setting, when documented at the
time of discharge.
Thank you,
Guillermo Fraser RN
CDI Specialist
Please use your independent medical judgment in providing your response.
--- NOTE | 2025-03-06 09:24 | PN.CDI ---
CDI
- -
CDI:
Physician Documentation Request
Admit Date: 03/02/25 20:41
Dear Doctor,
Please review the following and provide your response in the progress notes.
Clinical Indicators:
- 03/05 PN 'Rhabdomyolysis-- due to fall and being on the floor'
Laboratory Tests
03/02/25 03/03/25 03/06/25
18:34 04:46 07:08
Creatine Kinase 3996 H 3213 H 137 D
Please further specify the rhabdomyolysis:
Traumatic rhabdomyolysis
Non-traumatic rhabdomyolysis
Other
Use of terms such as suspected, likely, concern for, or probable (associated with a specific diagnosis that is being evaluated, monitored, or treated as if it exists) are acceptable and can be coded in the inpatient setting, when documented at the
time of discharge.
Thank you,
Guillermo Fraser RN
CDI Specialist
Please use your independent medical judgment in providing your response.
--- NOTE | 2025-03-06 11:16 | W.PN.CD ---
Today's Communication / Plan
-
Cardiology will sign off
I reviewed risks of bleeding and signs/symptoms to watch for
I asked him to see his cargo agent in next few weeks
Home on Eliquis 5 bid and Plavix 75 mg daily and off Effient (prasugrel). No ASA
Impression / Plan
-
80 yrs old man with HTN, DM, HLP, CAD s.p stents, CHF, usually followed by [place] presented with rhabdomyolysis with FELIZ and resolving renal injury but has gone into atrial fibrillation
New atrial fibrillation, persisting
- Eliquis dose is now 5 bid as Cr less than 1.5 -> increase to 5 BID
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
- Rates OK w/o meds
CAD
- Was on Effient => moved to Plavix as that is the usual agent used with oral anticoagulation
- Last PCI/stent was Jun 2024 to LAD per patient,
- typically Plavix/[id number] can be stopped at the 1 yr rosalia from stent => I reviewed with pt and told him sometimes Plavix might be continued longer and he should discuss with his cargo agent
Hx Heart failure, based on our records presumably HFpEF
- Obtain records from [place] (still not here)
UTI
- On Cefepime.
Subjective: No CP or palps
Echo 03/05/2025:
Contrast was used.
Normal biventricular size and systolic function without regional wall motion
abnormality. Estimated LVEF 50-55%.
No significant valve disease.
No prior study available for comparison
Physical Exam
Vital Signs/Labs
Vital Signs
Temp Pulse Resp BP Pulse Ox
97.6 F 78 18 130/60 95
03/06/25 07:30 03/06/25 07:30 03/06/25 07:30 03/06/25 07:30 03/06/25 11:10
03/05/25 03/06/25 03/07/25
06:59 06:59 06:59
Actual Weight 98.231 kg 98.515 kg
03/06/25 07:08
03/06/25 07:08
Magnesium 2.5 mg/dl (1.6-2.3) H 03/03/25 21:44
Magnesium Cancelled 03/03/25 21:44
TSH 3.50 uIU/ml (0.47-4.68) 03/03/25 21:44
03/03/25 03/03/25
04:46 09:44
Ycb-B-Mgcstjakwji Pept 7980 Cancelled
LAB Results
03/03/25 03/04/25 03/04/25
21:44 03:30 09:50
Troponin I 0.036 H* 0.038 H* 0.028 D
03/04/25
18:58
Troponin I 0.022
Physical Exam
Constitutional: No acute distress
EENT: Anicteric
Cardiovascular: Rhythm/rate is irregular and S1S2 is normal
Respiratory: Respiratory effort normal and Lungs clear to auscul.
GI: Soft
Neuro/Psych: Alert
Data Reviewed
-
Date of Service: March 06, 2025
[2025-03-06 11:22] VITALS: BP 121/63
[2025-03-06 11:51] LABS: Glucose - Point of Care 326 mg/dl (70-99)
[2025-03-06] MEDS: NOVOLOG FLEXPEN-MODERATE RESISTANCE 7 UNITS SC (12:34)
--- NOTE | 2025-03-06 13:32 | VNURNOTE ---
Home Health Liaison met with patient at bedside to discuss VN nurse/therapy, visits, schedule and homebound status. Patient is agreeable and understands that visits at home will be 2-3 x per week to assess and teach medical and laura management.
[facility]
--- NOTE | 2025-03-06 13:32 | CM ---
Patient seen at bedside with physicians. Patient stated that he would be picked up by patient family and requested VN; CM reviewed options and referral tt to Liaison for [facility]. CM updated IMM and patient signed form placed on chart. Patient indicated
that he had no further questions. CM will continue to follow for discharge planning needs.
Plan; home with [facility] to follow
[2025-03-06 15:35] VITALS: BP 120/59
[2025-03-06 16:48] LABS: Glucose - Point of Care 298 mg/dl (70-99)
--- NOTE | 2025-03-06 18:10 | W.PN.UPDATE ---
Update Note
Progress Note Update
1) Traumatic Rhabdomyolysis (CDI response)
Patient is stable
- Discontinue fluids
-Maintain urine output status of more than 200 mL/h
-Monitor creatinine kinase, BMP, LFTs and watch for rising creatinine phosphorus, potassium, calcium
- CPK is 275 which is a decrease from 369 on admission. FELIZ with 4+ blood on UA (RBCs not quantified due to too numerous WBCs).
- PT eval
- CT head normal
-Hold all nephrotoxic drugs that are renally cleared
- Patient denies any significant pain, injury, trauma.
--- NOTE | 2025-03-07 00:29 | W.DCSUMMARY ---
Addendum entered and electronically signed by Lucy Cooper MD 03/07/25 07:10:
Read, reviewed, and agree. See same day progress note for additional details. Time spent coordinating care, DC planning, review of DC plan of care with resident, transition of care, review of records in EMR, med rec, consults, notes, d/w
consultants, nursing, family, and CM = 39 minutes
He was advised to follow-up with his urologist for the bladder mass seen on ultrasound as well as ongoing catheter care as an outpatient.
Original Note:
Discharge Summary
Discharge Data
Date of Admission: 03/02/25
Date of Discharge: 03/06/25
-
Pending Results: No
Hospital Course
Discharging Physician : Dr. Lucy Cooper
Disposition : Home
Primary care physician : ( [facility])
Principal Discharge diagnosis : Catheter associated urinary tract infection
Chronic Discharge diagnosis : Rhabdomyolysis, Acute Kidney Injury, Benign prostatic Hyperplasia with urinary retention, Atherosclerotic coronary artery disease, New onset atrial fibrillation, Bladder soft tissue mass, Diabetes mellitus type 2,
obesity
Hospital Course : 80 year old male, full code with a past medical history of Atherosclerotic coronary artery disease, diabetes mellitus type 2, obesity, benign prostatic hyperplasia with urinary retention, obesity comes to the [facility]
room for an episode of syncope falling in his bathroom floor. The previous week he felt weak, tired, dry cough since a week with a at home temperature of 103 measured by his daughter. He also had an indwelling urinary catheter placed for his benign
prostatic hyperplasia by Dr. Mayes at [place].
He was managed for:
Catheter associated urinary tract infection: He presented with a fever of 102.3, Leucocyte count of 20,800, and purulent urine draining along his laura catheter. The laura was draining well. Blood cultures taken on admission grew Klebsiella Oxytoca
on 03/02/25.Blood cultures on 03/04/25 were negative. He was then placed on IV cefepime. It has since resolved and patient is stable. For his outpatient management, we prescribed Augmentin 14 days from the first negative blood culture.
Rhabdomyolysis and FELIZ: Due to fall on the floor, we suspect traumatic induced rhabdomyolysis. On admission his CPK was 369 which gradually to 137 upon discharge. His urineanalysis showed 4+ blood. All nephrotoxic drugs were held and then advised to
restart on discharge. Creatinine is 3.0 on admission and gradually declined to 1.0 on discharge so kidney function stable. managed with electrolyte monitoring, supportive care, and IV fluids. Head CT normal.
Bladder soft tissue mass: Seen as incidental finding on renal ultrasound. A 1.7 cm soft tissue mass in the urinary bladder lumen. Vitals are stable. Refer to urology outpatient for cystoscopy.
BPH with Urinary Retention: Patient states that Laura was newly placed on Wednesday at Dr. Hill's office at [facility]. Continue to maintain catheter for now. Continue tamsulosin. Renal function is stable and electrolytes arestable on
discharge. Referred patient to see urology outpatient.
ASCVD with stents and Chronic HF: Echocardiogram shows left ventricular ejection fraction of 50 to 55% and no significant valve disease. Also shows atrial fibrillation as the rhythm. weight decreased from 108kg on admission to 98 on discharge.
Patient is on 2 g sodium diet and is educated on fluid restriction. Follow up with outpatient cardiology.
New onset of atrial fibrillation-rate controlled: Confirmed on both EKG and echo. Rate has been less than 85 entire admission course. Blood pressure stable. No chest pain, palpitations, dyspnea. TSH is normal. Rate control is not pursued by
Cardiology as it is ok without meds. Chadsvasc score more than 3. increased Eliquis dose to 5 Mg twice daily while Switching Effient to Plavix. Recommended to follow up outpatient.
DM-II- Hemoglobin A1c 7.3-will resume his home diabetic regimen on discharge. During hospital course, his glucose on admission was 279 and then finally decreased to 173. He was placed on insulin aspart and glargine. Patient is on diabetic diet and
diabetes education is provided. PCP outpatient in 1 week following discharge.
Important imaging findings :
Renal ultrasound on 03/03/25:
1. Mild symmetric bilateral intrarenal collecting system dilatation.
2. Mild bilateral renal cortical volume loss.
3. 1.7 cm mucosal-based soft tissue mass in the urinary bladder lumen. 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
4. Laura catheter in the urinary bladder.
head CT 03/03/25:
No intracranial abnormality.
Procedure findings :
Discharge Plan
-
Patient Disposition: Home (Routine Discharge)
Discharge Diagnosis/Procedures: Catheter associated Klebsiella urinary infection, rhabdomyolysis, Acute kidney injury, Acute kidney injury, Benign prostatic hyperplasia with urinary retention, chronic heart failure, Atherosclerotic cardiovascular
disease, New onset Atrial fibrillation, Diabetes mellitus type 2
Condition: Fair
Diet: Diabetic, Carb Controlled
Activity: With assistance
Driving Restrictions: Not until seen by your Dr
Bathing Restrictions: None
Blood Work: CBC in 1 week with pcp
BMP in 1 week with pcp
Other Services: VN, PT and OT
Instructions: Atrial fibrillation, Lowering the risk of a catheter-associated urinary tract infection
Referrals:
Zoran Neal MD, Resident [Family Practice Resident Year1] - in one week
Chad Marquez MD [Active] - in one to two weeks
Additional Discharge Medication Instructions: Eliquis dose increased to 5mg twice a day by cardiology. Please see outpatient firer boiler within 2 weeks
Effient is changed to Plavix. Use plavix 75 mg once a day. Please see outpatient firer boiler in 2 weeks
Augmentin for 14 days.
Please see urologist outpatient for renal ultrasound findings.
Prescriptions:
New
clopidogrel 75 mg Tablet
75 mg PO DAILY 30 Days Qty: 30 0RF
Eliquis 5 mg Tablet
5 mg PO BID 30 Days Qty: 0 0RF
amoxicillin-pot clavulanate 875-125 mg Tablet
1 tab PO Q12 14 Days Qty: 28 0RF
Eliquis 5 mg tablet
5 mg PO BID 30 Days Qty: 60 0RF
Continued
tamsulosin 0.4 mg Capsule
0.4 mg PO BID 30 Days Qty: 30 0RF
insulin asp prt-insulin aspart [Novolog Mix 70-30FlexPen U-100] 100 unit/mL (70-30) Insulin Pen
16 unit SC BID Qty: 1 0RF
rosuvastatin 20 mg Tablet
20 mg PO DAILY 30 Days Qty: 30 0RF
Janumet 50-1,000 mg Tablet
1 tab PO BID Qty: 0 0RF
Entresto 49-51 mg Tablet
1 tab PO BID 30 Days Qty: 30 0RF
Discontinued
ibuprofen 800 mg Tablet
800 mg PO Q8HPRN PRN (Reason: mild pain)
prasugrel HCl 10 mg Tablet
10 mg PO HS
Discharge Orders:
Discharge Patient (As Directed); Ordered 03/06/25
Ordered By: Zoran Neal
Discharge Date and Time
Discharge Date/Time: 03/06/25 18:09
Print Language: SPANISH
== END 2025-03-06 18:09 | disposition home or self-care (01) | DRG 698 ==
LOC: 4 EAST ACU 20:41
PROVIDERS: Internal Medicine; Nurse Practitioner Gerontology; Physician Assistant Medical; ADMITTING PHYSICIAN Hospitalist; ATTENDING PHYSICIAN Internal Medicine; CONSULT PHYSICIAN Internal Medicine Cardiovascular Disease; EMERGENCY PHYSICIAN Emergency Medicine
DX: T83.511A Infection and inflammatory reaction due to indwelling urethral catheter, initial encounter (principal); A41.9 Sepsis, unspecified organism; M62.82 Rhabdomyolysis; I13.0 Hypertensive heart and chronic kidney disease with heart failure and stage 1 through stage 4 chronic kidney disease, or unspecified chronic kidney disease; N17.9 Acute kidney failure, unspecified; E87.20 Acidosis, unspecified; I50.30 Unspecified diastolic (congestive) heart failure; I5A Non-ischemic myocardial injury (non-traumatic); N39.0 Urinary tract infection, site not specified; Z11.52 Encounter for screening for COVID-19; Y84.6 Urinary catheterization as the cause of abnormal reaction of the patient, or of later complication, without mention of misadventure at the time of the procedure; N18.9 Chronic kidney disease, unspecified; E11.22 Type 2 diabetes mellitus with diabetic chronic kidney disease; D64.9 Anemia, unspecified; I25.10 Atherosclerotic heart disease of native coronary artery without angina pectoris; I48.91 Unspecified atrial fibrillation; E66.9 Obesity, unspecified; Z68.29 Body mass index [BMI] 29.0-29.9, adult; I70.0 Atherosclerosis of aorta; N40.1 Benign prostatic hyperplasia with lower urinary tract symptoms; Z79.01 Long term (current) use of anticoagulants; Z79.4 Long term (current) use of insulin; Z79.899 Other long term (current) drug therapy
CPT/HCPCS: 51702; 51798; 70450; 71045; 76770; 80048; 80053; 81003; 81015; 82550; 82607; 82728; 82962; 83036; 83540; 83550; 83605; 83735; 83880; 84443; 84484; 85025; 85027; 87040; 87077; 87086; 87149; 87186; 87205; 87502; 87811; 93005; 93306; 96361; 96374; 97116; 97163; 99285; Q9950

== ENCOUNTER 2025-03-15 14:57 | Inpatient (IN) | payer OTHER, SELFPAY ==
[2025-03-15] VITALS (9 sets, daily range): BP systolic 104–137; BP diastolic 40–93; BMI 28.2
[2025-03-15 11:58] LABS: % Basophils 0.9 % (0-2); % Immature Granulocytes 0.4 % (0-0.5); % Lymphocytes 17.1 % (20.5-51.1); % Monocytes 10.9 % (1.7-9.3); % Neutrophils 67.7 % (42.2-75.2); Absolute Basophils 0.1 10^3/uL (0-0.2); Absolute Eosinophils 0.3 10^3/uL (0-0.7); Absolute Lymphocytes 1.7 10^3/uL (1.2-3.4); Absolute Monocytes 1.1 10^3/uL (0.1-0.6); Absolute Neutrophils 6.9 10^3/uL (1.4-6.5); Hematocrit 33.3 % (39.0-52.0); Hemoglobin 10.7 g/dL (13.0-18.0); Mean Corp Hgb Conc. 32.1 g/dL (33.0-37.0); Mean Corpuscular Hgb 27.8 pg (27.0-31.0); Mean Corpuscular Volume 86.5 fL (80.0-94.0); Mean Platelet Volume 9.3 fL (7.4-10.4); Nucleated Red Blood Cells % 0 % (-); Platelet Count 351 10^3/uL (130-400); Red Blood Cell Count 3.85 10^6/uL (4.70-6.10); Red Cell Dist. Width 15.1 % (11.5-14.5); White Blood Cell Count 10.2 10^3/uL (4.8-10.8)
--- NOTE | 2025-03-15 12:46 | ED.GENMED ---
History of Present Illness
General
Chief Complaint: Male Genito-Urinary Symptoms
Source: patient, records and spouse
Time Seen by Provider: 03/15/25 11:22
History of Present Illness
History of Present Illness:
80-year-old male with past medical history of coronary artery disease, insulin-dependent diabetes, BPH, status post Claire placement presents to the emergency department after family noticed he had significant hematuria and clots since last night
within his Claire bag, was supposed to see his urologist today at a separate facility but states they canceled that appointment and presents to the ER here due to the amount of hematuria. Patient states he is not having any pain and otherwise feels
that he is in his usual state of health. is concerned because patient is also on Eliquis due to a history of atrial fibrillation.
Past History
Past History
ED Past Medical History: CAD and IDDM
ED Past Surgical History: Cardiac
Social History
Tobacco: Non-smoker
Alcohol: None
Drug: None
Personal:
Living: with family
Review of Systems
Review of Systems
All Other Systems: ROS reviewed and negative except as documented in HPI and ROS
Phy Exam
Physical Exam
Physical Exam:
GENERAL: Alert , in no apparent distress
EYE: clear conjunctiva b/l
HEAD: NCAT
ENT: o/p clr, mmm.
CARDIAC: Regular rate and rhythm .
LUNGS: Clear breath sounds bilaterally, no acute respiratory distress, no wheezes/rales/rhonchi
ABDOMEN: Soft, without focal tenderness, no r/g, no cvat
: Claire bag in place, large dark mer bloodied urine noted within the Claire bag
NEUROLOGICAL: Alert and oriented
SKIN: Warm and dry, skin intact.
MUSCULOSKELETAL: No edema, well perfused.
PSYCH: Normal and appropriate interaction.
Scores
Heart Failure Risk
Heart Failure Risk Score: Not Applicable
Heart Score for Chest Pain Patients
STEMI patient?: Not applicable
Withdrawal Assessment of Alcohol
Withdrawal Assessment Completed?: Not applicable
Course
Orders/Labs/Results
Orders:
Orders
03/15/25 11:37
CBI- Treatment PRN
Solution: NSS
Irrigate to Clear?: Yes
03/15/25 11:47
Complete Blood Count/With Diff Urgent
03/15/25 12:37
Urinalysis Reflex To Culture Urgent
Date Specimen was Collected: 03/15/25
Time Specimen was Collected: 12:04
Urine Microscopic Reflex Cult Urgent
Urine Culture Urgent
JUSTO Source: U
Specimen Description:
Date Specimen was Collected: 03/15/25
Time Specimen was Collected: 12:04
03/15/25 13:17
Basic Metabolic Panel Urgent
03/15/25 14:18
UROLOGY CONSULT Routine
Consulting Provider: Vinnie Sharp
Was physician already notified: Yes
Comment: Hematuria via Claire on Eliquis/Plavix
03/15/25 14:24
Admit/Transfer Patient As Directed
Co-Sign Provider:
Level of Care: Inpatient admission
Assign to:: Medical/Surgical
Physician / Group: tank casiano
Diagnosis: Acute hematuria with Claire POA, on Eliquis/Plavix
Reason for Hospitalization: Acute hematuria with Claire POA, on Eliquis/Plavix
Expected length of stay greater than two midnights?: Yes
ELOS- Estimated Length of Stay in days: 4
I certify the patient meets the requirements for IP care: Yes
Code Status As Directed
Resuscitation Status: Full Code
03/15/25 14:30
PRN Pain Medication Management As Directed
May give lesser potent ordered pain med per pt: Yes
preference::
Protocol:: Medication orders for pain may be administered in a
manner that supports deferring to patient preference
when the pt is:
- Requesting an ordered lesser potent pain medication.
Least to most potent pain medications are defined
as: acetaminophen < NSAID < tramadol < opioids
(morphine, oxycodone, hydromorphone).
- Requesting a lesser dose of the same medication IF
ORDERED.
- Requesting a less intrusive route of administration
if both routes are prescribed by the provider (PO <
IV).
03/15/25 Dinner
1800 calorie (15 carb) Diabetic
At Your Request: Full Participation
Does patient need a safe tray?: No
03/15/25 15:19
Acetaminophen [Tylenol] 650 mg PO Q4HPRN PRN
Dextrose 50%-Water [Dextrose 50% Syringe] 12.5 grams IV [id number] PRN
Glucagon [GlucaGen] 1 mg IM PRN PRN
03/15/25 15:19
Activity As Directed
Activity Level: With Assistance
Comment: Uses walker at baseline
Bedside Glucose Monitoring As Directed
Frequency: AC&HS
Additional Instructions:: Change to q6h if pt on TPN, tube feeding or not eating
Intake/ Output As Directed
Frequency: Per unit guidelines
Pneumatic Compression Sleeves As Directed
Type: Knee high
Vital Signs As Directed
Frequency: Per unit guidelines
Weight As Directed
Frequency: Daily
Ot Eval And Treat Routine
Pt Eval And Treat Routine
Activity Level: With Assistance
DX Deep Vein Thrombosis Video Routine
03/15/25 16:30
Insulin Aspart Corrective Low [Novolog Flexpen-Low Resistance] See Protocol SC AC
03/15/25 17:00
Insulin Aspart/Asp Protamine [Novolog Mix 70/30 Flexpen] 16 units SC BID@0800,1700
Sitagliptin Phosphate [Januvia] 50 mg PO BID AT 0800,1700
03/15/25 18:00
Rosuvastatin Calcium [Crestor] 20 mg PO QPM
03/15/25 20:00
Amoxicillin 875 mg/Clav 125 mg [Augmentin 875 mg/125 mg] 1 tablet PO Q12
Sacubitril 49/Valsartan 51 [Entresto 49 mg/51 mg] 1 tab PO BID
03/15/25 22:00
Tamsulosin [Flomax] 0.8 mg PO HS
03/16/25 07:06
Complete Blood Count/With Diff IN AM
Comprehensive Metabolic Panel IN AM
03/16/25 08:00
Multivitamin [Theragran] 1 tablet PO DAILY
03/17/25 06:00
Complete Blood Count/With Diff IN AM
Comprehensive Metabolic Panel IN AM
03/18/25 06:00
Complete Blood Count/With Diff IN AM
Comprehensive Metabolic Panel IN AM
03/19/25 06:00
Complete Blood Count/With Diff IN AM
Comprehensive Metabolic Panel IN AM
Abnormal Lab Results
03/15/25 03/15/25 03/15/25
11:47 12:37 13:17
RBC 3.85 L 10^6/uL
(4.70-6.10)
Hgb 10.7 L g/dL
(13.0-18.0)
Hct 33.3 L %
(39.0-52.0)
MCHC 32.1 L g/dL
(33.0-37.0)
RDW 15.1 H %
(11.5-14.5)
Absolute Neuts (auto) 6.9 H 10^3/uL
(1.4-6.5)
Absolute Monos (auto) 1.1 H 10^3/uL
(0.1-0.6)
Lymphocytes % 17.1 L %
(20.5-51.1)
Monocytes % 10.9 H %
(1.7-9.3)
BUN 27 H mg/dl
(9-20)
Glucose 162 H mg/dl
(70-99)
Ur Occult Blood Reflex 4+ A
(Negative)
Leukocyte Esterase Rfl 3+ A
(Negative)
Urine RBC 80-90 A /HPF
(0-2)
Urine Bacteria (Reflex) Few A
(Negative)
Urine Glucose 3+ A
(Negative)
Urine Albumin (Reflex) 3+ A
(Neg - Trace)
03/15/25 11:47
03/15/25 13:17
Vital Signs
Initial and Last Documented VS:
Initial Vital Signs
Temp Pulse Resp BP Pulse Ox
97.4 F 95 20 104/55 100
03/15/25 10:54 03/15/25 10:54 03/15/25 10:54 03/15/25 10:54 03/15/25 10:54
Last Documented Vital Signs
Temp Pulse Resp BP Pulse Ox
97.1 F 86 22 94/55 98
03/16/25 15:52 03/16/25 15:52 03/16/25 15:52 03/16/25 15:52 03/16/25 15:52
MDM/Problems Addressed
Differential Diagnosis Includes:
Continue urinary tract infection/inflammation secondary to Claire placement/UTI, malignancy, anemia
MDM/Problems Addressed:
80-year-old male, recently admitted for catheter associated UTI resulting in rhabdomyolysis and acute kidney injury presenting back to the emergency department after noticing mer blood within Claire bag since last night. and daughter report
large clots accompanied with the mer blood. Patient asymptomatic. Currently on Augmentin for the urinary tract infection. Given the amount of blood within Claire bag will treat with continuous bladder irrigation. Will check labs due to patient
being anticoagulant Eliquis as well as his recent acute kidney injury. Disposition pending but plan for admission
Chronic conditions affecting care: Other (BPH)
*Pulse Oximetry
Patient hypoxic: no
*Cycle Touring Guide Interpretation
Rate: normal
Rhythm: sinus
*Critical Care Note
Total Time (30-74mins, 75-104mins- exclusive of procedures): Not Applicable
Data Reviewed
Review of Other/Old Records Reveals: Labs and Records
Patient Management
Discussion with other providers: Hospitalist
Escalation/DeEscalation of care consider admission/obs:
Patient's mer hematuria significantly improved following CBI however still with light red tint to urine. Given he is on Eliquis combined with his mild anemia we will plan for admission for continued CBI, urology consult. Hospitalist team to
admit.
ED Attending Note
-
Portions of this chart may have been created with voice recognition software.� Occasional wrong word or��sound alike� substitutions may have occurred due to the inherent limitations of voice recognition software.
Discharge Plan
Departure
Patient Disposition: Admit
Date of Disposition: 03/15/25
Time of Disposition: 13:23
Presentation/result/management discussed w/ accepting MD/DO: Hospitalist
Discharge Problem:
Mer hematuria
Interventions
Interventions:
*Risk Screen - Suicide Last Done: 03/15/25 10:54
*General Assessment Last Done: 03/15/25 10:54
*Neglect/Abuse Screening Last Done: 03/15/25 10:54
*ED- Fall Risk Assessment Last Done: 03/15/25 12:45
*ED COVID-19 Vaccine History Last Done: 03/15/25 12:45
RC-Hfcacv-Xslghnfofa Assessment Last Done: 03/15/25 12:45
ED-Male Genitourinary Assessment Last Done: 03/15/25 12:45
[2025-03-15 12:51] LABS: Urine Albumin 3+ (Neg - Trace); Urine Bilirubin Negative (Negative); Urine Character Cloudy (Clear); Urine Color Red; Urine Glucose 3+ (Negative); Urine Ketone Negative (Negative); Urine Leukocyte 3+ (Negative); Urine Nitrite Negative (Negative); Urine Occult Blood 4+ (Negative); Urine Specific Gravity 1.005 (<1.030); Urine Urobilinogen Negative (Neg - 1+)
--- NOTE | 2025-03-15 13:26 | HPS.HSE ---
Family Physician
-
Family Physician: Malcom Guevara
Chief Complaint
-
Hematuria with clots x 2 days
History of Present Illness
80 year status post Claire placement resents to the ER after family noticed he had hematuria with clots since last night in his Claire bag. He was due to follow-up with urology Dr. Mayes today 03/15/2025 but they canceled that appointment to come to
the ER for evaluation. His is concerned due to patient being on Eliquis for history of A-fib that was just started on 03/02/2025 for new onset A-fib. She reports he started last night with hematuria and grape size clots that persisted
throughout the night and today. While in the ED his catheter was exchanged to a three-way Claire and is currently draining strawberry in color with no current clots present. He had initial Claire catheter placement on 02/26 for PVI greater than
thousand per patient by his urologist Dr. Mayes at [facility]. He had recent admission 03/02/2025 for catheter associated UTI with bacteremia growing Klebsiella oxytoca. He was treated with IV cefepime transition to oral Augmentin for 14
days due to stop on 03/18/2025. He denies current headache, sore throat, fever, chills, chest pain, palpitations, cough, shortness of breath, abdominal pain, nausea, vomiting, diarrhea, abdominal cramping or pain with clots. He has history of
chronic CHF with chronic peripheral edema that they state is near baseline. He uses a walker now with steady gait used to use prior cane.
He has past medical history of BPH/urinary retention with Claire catheter, new onset 03/02/2024 A-fib on Eliquis, CAD, PTCA with stents June 2020 for LAD, DM 2, obesity, BPH/ urinary retention 02/26/2025, pilonidal cyst
Medical History
Past Medical History
Past Medical History: Reports Other
Additional Past Medical History:
New onset A-fib 03/02/2025 placed on Eliquis
CAUTI 03/02/2025
Bacteremia Klebsiella oxytoca 03/02/2025
ASCVD status post LAD stent June 2024
DM-II
Obesity
BPH / Urinary Retention with Claire placement initiated 02/26/2025 Dr. Mayes [facility]
Chronic ambulatory dysfunction uses walker at baseline
Past Surgical History: Reports Other
Additional Past Surgical History:
PTCA with Stents
Pilonidal Cyst
Social History
Tobacco: Non-smoker
Alcohol: None
Drug: None
Personal:
Living: With Family ( Christiana)
Employment: Retired
Family History
Family History: Early CAD (2 sisters both MIs in age 30s and 40s still living) and Other (Father age 39 colon cancer, mother age 94 oral cancer)
Allergies / Home Medications
Allergies reflects when Allergies were last updated in [employer] [place].
Home Medications with original date entered in [employer] [place]
Allergy/Medication List:
Allergies
Allergy/AdvReac Type Severity Reaction Status Date / Time
egg Allergy Hives Verified 03/15/25 10:57
tri Allergy Hives Uncoded 03/15/25 10:57
Home Medications
apixaban 5 mg tablet (Eliquis) 5 mg PO BID anticoagulation 30 days #60 tabs 03/06/25
clopidogrel 75 mg tablet 75 mg PO DAILY Blood clot prevention/tx 30 days #30 tabs 03/06/25
insulin aspar prot-insulin aspart 100 unit/mL (70-30) subcutaneous pen (Novolog Mix 70-30FlexPen U-100) 16 unit (0.16 mL) SC BID Diabetes #1 mL 03/06/25
sacubitril 49 mg-valsartan 51 mg tablet (Entresto) 1 tab PO BID 30 days #30 tabs 03/06/25
sitagliptin phosphate 50 mg-metformin 1,000 mg tablet (Janumet) 1 tab PO BID Diabetes #0 tabs 03/06/25
amoxicillin 875 mg-potassium clavulanate 125 mg tablet 1 tab PO Q12 03/15/25
cinnamon bark 500 mg capsule (Cinnamon) 500 mg PO DAILY 03/15/25
garlic 100 mg tablet 100 mg PO DAILY 03/15/25
omega 4-wwf-dtp-fish oil 60 mg-90 mg-500 mg capsule (Fish Oil) 1 cap PO DAILY 03/15/25
rosuvastatin 20 mg tablet 20 mg PO QPM hyperlipidemia 03/15/25
tamsulosin 0.4 mg capsule 0.8 mg PO HS BPH 03/15/25
therapeutic multivitamin 1 tab PO DAILY 03/15/25
vitamin E 268 mg (400 unit) capsule 268 mg PO DAILY 03/15/25
Review of Systems
-
History Source: Patient and Family ( Christiana and daughter Aida at bedside)
A 12 point ROS was completed and negative except as noted: Yes
Constitutional: Denies Fever, Fatigue or Chills
EENT: Denies Sore Throat or Runny Nose
Respiratory: Denies Cough or Trouble Breathing
Cardiac: Denies Chest Pain, Diaphoresis, Palpitations or Syncope
Abdomen/GI: Denies Abdominal Pain, Nausea, Vomiting, Diarrhea, Constipated, Bloody Stools or Black Stools
: Reports Claire (With hematuria and clots); Denies Flank Pain or Urgency
Musculoskeletal: Reports Edema (Chronic +2 bilateral lower extremity); Denies Joint Pain
Skin: Denies Itching or Rash
Neurological: Denies Dizzy, Headache or Weakness
Endocrine: Reports No Symptoms
Hematologic/Lymphatic: Reports No Symptoms
Psych: Reports Calm
Physical Exam
Vital Signs
Vital Signs
Temp Pulse Resp BP Pulse Ox
97.4 F 78 16 105/93 96
03/15/25 10:54 03/15/25 13:26 03/15/25 13:26 03/15/25 13:21 03/15/25 13:21
Physical Exam
General: Comfortable, Conversant and Obese; No Pain, Fever or Chills
HEENT: NormoCephalic, Anicteric, Moist mucous membranes, PERRLA, [place] Conjunctivae and No Ptosis
Respiratory: Clear; No Wheezes, Rales or Rhonchi
Cardiac: S1/S2, Regular Rhythm and Peripheral Edema (+2 bilateral lower legs); No Murmur, Rub or Gallop
Breast: Deferred by me
GI: Soft, Non Tender, Non Distended, Normal Bowel Sounds and No Hepatosplenomegaly
Genito-urinary: Claire (CBI draining strawberry in color no clots)
Musculoskeletal: No Clubbing, No Cyanosis, Edema, Left Lower Extremity (+2) and Edema, Right Lower Extremity (+2); No Edema, Left Upper Extremity or Edema, Right Upper Extremity
Skin: Warm and Dry; No Rash or Jaundice
Neuro: AO x 3, No Motor Deficits, Nonfocal/grossly intact, Cranial Nerves Intact and No Sensory Deficits; No Slurred Speech, Facial Droop, Tremors or Sedated
Psych: Calm
Laboratory Results
-
03/15/25 11:47
Data Reviewed
-
Lab Data: Labs Reviewed by me
Impression/Plan
-
Impression/plan:
Admit to [facility]
#Acute hematuria via chronic indwelling Claire catheter POA on Eliquis/Plavix
- Patient took Eliquis and Plavix this a.m. 03/15/2025
- Hold Eliquis and Plavix
-Hold fish oil
- Consult urology Dr. Sharp aware
- Follow urinalysis due to recent CAUTI
- Finish Augmentin 3 days left due to stop 03/18/2025
- Continue CBI until clear
- Continue Flomax 0.8 mg p.o. twice daily
#CAUTI with bacteremia blood cultures growing Klebsiella oxytoca 03/02/2025
-Treated with IV cefepime then Augmentin x 14 days should be done on 03/18/2025
Indwelling Claire catheter initially placed by Dr. Mayes at [facility] for BPH
- Repeat blood cultures on 03/04/2025 were negative
#Hx bladder soft tissue mass: Seen as incidental finding on renal ultrasound. 1.7 cm soft tissue mass in the urinary bladder lumen
- Patient was to follow-up with urology for outpatient cystoscopy
#Recent rhabdo myelosis and FELIZ due to fall with prolonged floor lying
-Treated with IV fluids creat was 3 declined to 1 on discharge
Per patient and family is better than baseline using walker without any difficulty
#CAD status post stents LAD June 2024
Recent Effient changed to Plavix as Eliquis was started 03/02/2025
-Hold Plavix
- Continue Crestor 20 mg every afternoon
- hold fish oil
#Chronic heart failure preserved EF
#Chronic peripheral edema
I/O, daily weights
-Continue Entresto with hold parameters
2D echo: EF 50-55%, no valvular disease
#A-fib new onset 03/02/2025
- Hold Eliquis
#DM 2 with recent hyperglycemia
HgbA1c 7.3 on 03/02/2025
-Accu-Cheks with SSI low
-Continue NovoLog 70/30 16 units twice daily
-Continue Janumet 1 tab p.o. twice daily
-1800 ADA low-cholesterol diet
DVT prophylaxis
Hold Eliquis
Place SCDs
Full code per patient with Christiana and daughter Aida at bedside
[2025-03-15 13:29] LABS: Urine Bacteria Few (Negative); Urine Red Blood Cell 80-90 /HPF (0-2); Urine Squamous Cell 0-2 /LPF (Few)
[2025-03-15 13:42] LABS: Blood Urea Nitrogen 27 mg/dl (9-20); Calcium 8.8 mg/dl (8.4-10.2); Carbon Dioxide 26 mmol/L (22-30); Chloride 104 mmol/L (98-107); Glucose 162 mg/dl (70-99); Potassium 5.1 mmol/L (3.5-5.1); Sodium 139 mmol/L (135-145); eGFR > 60.00
--- NOTE | 2025-03-15 14:09 | W.PN.UPDATE ---
Update Note
Progress Note Update
This is an addendum to the H&P written by Isabela Gonsalves on 03/15/2025.� Patient seen examined independently with PERSONNEL RECRUITER.
80-year-old male past medical history of paroxysmal atrial fibrillation on Eliquis, CAD, chronic HFpEF, diabetes, obesity, BPH, urinary retention with Claire catheter, presenting with hematuria with clots within Claire bag.� Was supposed to see
outside urologist today but appointment canceled.
Patient was recently admitted from 03/02 to 03/06 for syncope and fall.� He was found to have catheter associated UTI with Klebsiella bacteremia.� Also had rhabdomyolysis and FELIZ.� Renal ultrasound showed 1.7 cm soft tissue mass in the urinary bladder
lumen.
Vital signs normal.� Hemoglobin of 10.7.� Urinalysis shows +3 leukocyte esterase, cell counts pending.
CBI was started.� Hold Eliquis.� Urology consulted.
--- NOTE | 2025-03-15 14:54 | CONS.URO ---
Consultation
-
Date/Time Consultation Performed: 03/15/25 1450
Performing Provider: Aron
Reason for Consultation: Bladder mass/Gross Hematuria
Medical History
History of Present Illness
ED admission note: '80-year-old male past medical history of paroxysmal atrial fibrillation on Eliquis, CAD, chronic HFpEF, diabetes, obesity, BPH, urinary retention with Claire catheter, presenting with hematuria with clots within Claire bag.� Was
supposed to see outside urologist today but appointment canceled.
Patient was recently admitted from 03/02 to 03/06 for syncope and fall.� He was found to have catheter associated UTI with Klebsiella bacteremia.� Also had rhabdomyolysis and FELIZ.� Renal ultrasound showed 1.7 cm soft tissue mass in the urinary bladder
lumen.
Dr Hopkins [[facility] is patient's established urologist. Per patient, cystoscopy has not yet been performed.
Past Medical History
Past Medical History: Other (New onset A-fib 03/02/2025 placed on Eliquis CAUTI 03/02/2025 Bacteremia Klebsiella oxytoca 03/02/2025 ASCVD status post LAD stent June 2024 DM-II Obesity BPH / Urinary Retention with Claire placement initiated 02/26/2025
[facility] Chronic ambulatory dysfunction)
Allergies/Home Medications
Allergies
Allergy/AdvReac Type Severity Reaction Status Date / Time
egg Allergy Hives Verified 03/15/25 10:57
tri Allergy Hives Uncoded 03/15/25 10:57
Home Medications
�Medication �Instructions �Recorded �Confirmed �Type
apixaban 5 mg tablet (Eliquis) 5 mg PO BID anticoagulation 30 03/06/25 03/15/25 Rx
days #60 tabs
clopidogrel 75 mg tablet 75 mg PO DAILY Blood clot 03/06/25 03/15/25 Rx
prevention/tx 30 days #30 tabs
insulin aspar prot-insulin aspart 16 unit (0.16 mL) SC BID Diabetes 03/06/25 03/15/25 Rx
100 unit/mL (70-30) subcutaneous #1 mL
pen (Novolog Mix 70-30FlexPen
U-100)
sacubitril 49 mg-valsartan 51 mg 1 tab PO BID 30 days #30 tabs 03/06/25 03/15/25 Rx
tablet (Entresto)
sitagliptin phosphate 50 1 tab PO BID Diabetes #0 tabs 03/06/25 03/15/25 Rx
mg-metformin 1,000 mg tablet
(Janumet)
amoxicillin 875 mg-potassium 1 tab PO Q12 03/15/25 03/15/25 History
clavulanate 125 mg tablet
cinnamon bark 500 mg capsule 500 mg PO DAILY 03/15/25 03/15/25 History
(Cinnamon)
garlic 100 mg tablet 100 mg PO DAILY 03/15/25 03/15/25 History
omega 4-rgz-qeg-fish oil 60 mg-90 1 cap PO DAILY 03/15/25 03/15/25 History
mg-500 mg capsule (Fish Oil)
rosuvastatin 20 mg tablet 20 mg PO QPM hyperlipidemia 03/15/25 03/15/25 History
tamsulosin 0.4 mg capsule 0.8 mg PO HS BPH 03/15/25 03/15/25 History
therapeutic multivitamin 1 tab PO DAILY 03/15/25 03/15/25 History
vitamin E 268 mg (400 unit) capsule 268 mg PO DAILY 03/15/25 03/15/25 History
Physical Exam
Vital Signs
Vital Signs
Temp Pulse Resp BP Pulse Ox
97.4 F 74 18 137/52 98
03/15/25 10:54 03/15/25 14:53 03/15/25 14:53 03/15/25 14:43 03/15/25 14:47
Lab / Testing Results
Laboratory Results
03/15/25 11:47
03/15/25 13:17
Physical Exam
elderly male on ED gurney
General: No Apparent Distress
Genito-urinary: Claire Catheter (pink outflow with CBI)
Neuro: Awake
Psych: Calm
Assessment / Plan
-
Bladder Mass + Chronic Claire + CAUTI + Eliquis = Gross Hematuria
Rec: CBI ; will f/u with Dr Hopkins as an outpatient
Data Reviewed
-
Ultrasound: Image personally visualized and interpreted
Lab Data: Labs Reviewed
Old Records: Reviewed
[2025-03-15 16:22] LABS: Glucose - Point of Care 233 mg/dl (70-99)
[2025-03-15] MEDS: CRESTOR 20 MG PO (17:28)
[2025-03-15] MEDS: JANUVIA 50 MG PO (17:28)
--- NOTE | 2025-03-15 17:44 | PTCARENOTE ---
Called pharmacy 2x about missing medications. RN administered all that was available in the ED to give. Pt's food tray had not come yet. Blood sugar was taken earlier. Report called to receiving 4 yoselin RN. CBI sent with multiple sterile saline
bottles and irrigation supplies with patient
[2025-03-15] MEDS: NOVOLOG FLEXPEN-LOW RESISTANCE 2 UNITS SC (18:22)
[2025-03-15] MEDS: NOVOLOG MIX 70/30 FLEXPEN 16 UNITS SC (18:23)
[2025-03-15] MEDS: GLUCOPHAGE 1000 MG PO (18:23)
[2025-03-15] MEDS: AUGMENTIN 875 MG/125 MG 1 TABLET PO (19:17)
[2025-03-15] MEDS: ENTRESTO 49 MG/51 MG 1 TAB PO (20:26)
[2025-03-15] MEDS: FLOMAX 0.8 MG PO (20:27)
[2025-03-15 21:36] LABS: Glucose - Point of Care 213 mg/dl (70-99)
[2025-03-16 06:00] VITALS: BMI 28.0
--- NOTE | 2025-03-16 06:45 | W.PN.URO.CBU ---
Today's Communication / Plan
-
Rec: Hold Eliquis; CBI until diminishes ; will f/u with Dr Hopkins as an outpatient
Assessment / Plan
-
Bladder Mass + Chronic Claire + CAUTI + Eliquis = Gross Hematuria
Diagnosis
-
Date of Service: March 16, 2025
-
Patient Diagnosis:
Bladder Mass + Chronic Claire + CAUTI + Eliquis = Gross Hematuria
Subjective
-
asleep
Objective
-
Vital Signs
Temp Pulse Resp BP Pulse Ox
98.1 F 73 20 117/40 95
03/15/25 23:02 03/15/25 23:02 03/15/25 23:02 03/15/25 23:02 03/15/25 23:02
Intake and Output
03/14/25 03/15/25 03/16/25
06:59 06:59 06:59
Intake Total 1160 / 1160
Output Total 5225 / 5225
Balance -4065 / -4065
Intake:
Oral fluids 1160 / 1160
Output:
True Urine Output from CBI 5225 / 5225
Physical Exam
-
General - asleep no acute distress
Genitalia - Claire with CBI -- clot-free, medium red
[2025-03-16 07:30] VITALS: BP 107/48
[2025-03-16 07:32] LABS: Glucose - Point of Care 162 mg/dl (70-99)
[2025-03-16 07:55] LABS: % Eosinophils 3.7 % (0-6); % Immature Granulocytes 0.2 % (0-0.5); % Lymphocytes 24.5 % (20.5-51.1); % Monocytes 13.7 % (1.7-9.3); % Neutrophils 56.9 % (42.2-75.2); Absolute Basophils 0.1 10^3/uL (0-0.2); Absolute Eosinophils 0.3 10^3/uL (0-0.7); Absolute Monocytes 1.1 10^3/uL (0.1-0.6); Absolute Neutrophils 4.6 10^3/uL (1.4-6.5); Hematocrit 28.4 % (39.0-52.0); Hemoglobin 9.4 g/dL (13.0-18.0); Mean Corp Hgb Conc. 33.1 g/dL (33.0-37.0); Mean Corpuscular Volume 84.5 fL (80.0-94.0); Mean Platelet Volume 9.2 fL (7.4-10.4); Nucleated Red Blood Cells % 0 % (-); Platelet Count 309 10^3/uL (130-400); Red Blood Cell Count 3.36 10^6/uL (4.70-6.10); White Blood Cell Count 8.1 10^3/uL (4.8-10.8)
[2025-03-16 08:21] LABS: ALT (SGPT) 15 U/L (0-50); AST (SGOT) 15 U/L (17-59); Alkaline Phosphatase 72 U/L (38-126); Blood Urea Nitrogen 21 mg/dl (9-20); Calcium 8.3 mg/dl (8.4-10.2); Carbon Dioxide 26 mmol/L (22-30); Chloride 104 mmol/L (98-107); Estimated Creatinine Clearance 71 ml/min; Glucose 154 mg/dl (70-99); Potassium 4.8 mmol/L (3.5-5.1); Sodium 138 mmol/L (135-145); Total Bilirubin 0.7 mg/dl (0.2-1.3); Total Protein 6.1 g/dl (6.3-8.2); eGFR > 60.00
--- NOTE | 2025-03-16 08:42 | VNURNOTE ---
Chart reviewed. Patient is current with [facility] nursing, PT. Will continue to follow hospital course and DC plans.
--- NOTE | 2025-03-16 09:09 | W.PN.HOSP.TC ---
Today's Communication/Plan
-
follow with urology recommendations
Assessment / Plan
Assessment / Plan
Physical Exam
General: Comfortable, Conversant and Obese; No Pain, Fever or Chills
HEENT: Normocephalic, Anicteric, Moist mucous membranes, PERRLA, [place] Conjunctivae and No Ptosis
Respiratory: Clear;
Cardiac: S1/S2, + murmur
GI: Soft, Non Tender, Non Distended, Normal Bowel Sounds
Genito-urinary: Claire (CBI draining strawberry in color no clots)
Musculoskeletal: No Clubbing, No Cyanosis, no edema
Neuro: AO x 3, No Motor Deficits, Nonfocal/grossly intact, No Slurred Speech, Facial Droop, Tremors or Sedated
Psych: Calm
A/P
#Acute blood loss anemia due to hematuria via chronic indwelling Claire catheter POA, exacerbated by use of Eliquis/Plavix
- Patient took Eliquis and Plavix this a.m. 03/15/2025
- Holding Eliquis and Plavix
-Hold fish oil
- urology is managing CBI
- Urine culture : No growth
- Finish Augmentin 3 days left due to stop 03/18/2025
- Continue CBI until clear
- Continue Flomax 0.8 mg p.o. twice daily
#History of CAUTI with bacteremia blood cultures growing Klebsiella oxytoca 03/02/2025
-Treated with IV cefepime then Augmentin x 14 days should be done on 03/18/2025
Indwelling Claire catheter initially placed by Dr. Mayes at [facility] for BPH
- Repeat blood cultures on 03/04/2025 were negative
#Hx bladder soft tissue mass: Seen as incidental finding on renal ultrasound. 1.7 cm soft tissue mass in the urinary bladder lumen
- Patient was to follow-up with urology for outpatient cystoscopy
#Recent traumatic rhabdomyolysis and FELIZ due to fall with prolonged floor lying
-Treated with IV fluids creat was 3 declined to 1 on discharge
Per patient and family is better than baseline using walker without any difficulty
#CAD status post stents LAD June 2024
Recent Effient changed to Plavix as Eliquis was started 03/02/2025
No chest pain
-Hold Plavix
Will ask urology if we can do low dose aspirin
- Continue Crestor 20 mg every afternoon
- hold fish oil
#Chronic heart failure preserved EF
#Chronic peripheral edema
daily weights
-Continue Entresto with hold parameters
2D echo: EF 50-55%, no valvular disease
#Persistent A-fib
- Hold Eliquis
#DM 2 with recent hyperglycemia
HgbA1c 7.3 on 03/02/2025
-Accu-Cheks with SSI low
-Continue NovoLog 70/30 16 units twice daily
-Continue Janumet 1 tab p.o. twice daily
-1800 ADA low-cholesterol diet
DVT prophylaxis
Hold Eliquis
Place SCDs
Total time spent to see the patient, examine the patient, review data and lab result, discuss treatment plan with patient, nursing staff around 55 minutes
Anticipated Discharge: > 48 hours
Subjective/Interval History
-
Date of Service: March 16, 2025
No chest pain
No sob
No abdominal pain
Objective Data
-
Labs:
Laboratory Results
03/16/25
07:06
WBC 8.1
Hgb 9.4 L
Hct 28.4 L
Plt Count 309
Sodium 138
Potassium 4.8
Chloride 104
Carbon Dioxide 26
BUN 21 H
Creatinine 0.9
Glucose 154 H
Calcium 8.3 L
Total Bilirubin 0.7
AST 15 L
ALT 15
Alkaline Phosphatase 72
Vital Signs:
Vital Signs
Temp Pulse Resp BP Pulse Ox
98.6 F 83 20 107/48 96
03/16/25 07:30 03/16/25 07:30 03/16/25 07:30 03/16/25 07:30 03/16/25 07:30
I&O
03/15/25 03/16/25 03/17/25
06:59 06:59 06:59
Intake Total 1160 / 1160
Output Total 5225 / 5225 1000 / 1000
Balance -4065 / -4065 -1000 / -1000
[2025-03-16] MEDS: GLUCOPHAGE 1000 MG PO ×2 (09:28→17:18)
[2025-03-16] MEDS: ENTRESTO 49 MG/51 MG 1 TAB PO ×2 (09:28→21:09)
[2025-03-16] MEDS: AUGMENTIN 875 MG/125 MG 1 TABLET PO ×2 (09:28→21:03)
[2025-03-16] MEDS: JANUVIA 50 MG PO ×2 (09:28→17:18)
[2025-03-16 09:34] VITALS: BP 110/40
[2025-03-16] MEDS: NOVOLOG MIX 70/30 FLEXPEN 16 UNITS SC ×2 (10:28→17:17)
[2025-03-16] MEDS: NOVOLOG FLEXPEN-LOW RESISTANCE 1 UNITS SC (10:28)
[2025-03-16 11:18] VITALS: BP 110/59; PULSE 80; O2SAT 93
--- NOTE | 2025-03-16 11:22 | CM ---
Patient seen bedside, initial assessment completed. Patient admitted for hematuria with clots x 2 days.
Patient reports that he resides w/ spouse in [facility]- 1 step to enter. Patient utilizes RW now to ambulate, prev used a cane. Has shower stool in the bathroom. Independent w/ ADLs. Denies SNF hx, current w/ [facility].
Address, points of contact and insurance verified
PCP: Malcom Guevara
Pharmacy: [facility]
PT/OT evals ordered, will watch for any recommendations
Plan: CM will cont to follow for d/c planning
[2025-03-16 11:31] VITALS: BP 127/56
[2025-03-16 12:04] LABS: Glucose - Point of Care 222 mg/dl (70-99)
[2025-03-16] MEDS: NOVOLOG FLEXPEN-LOW RESISTANCE 2 UNITS SC ×2 (12:49→17:17)
[2025-03-16 15:52] VITALS: BP 94/55
[2025-03-16 17:10] LABS: Glucose - Point of Care 214 mg/dl (70-99)
[2025-03-16] MEDS: CRESTOR 20 MG PO (17:18)
[2025-03-16] MEDS: DULCOLAX 10 MG PO (18:43)
[2025-03-16] MEDS: LIDOCAINE URO-JET 2% 1 SYRINGE TOPICAL (18:44)
[2025-03-16] MEDS: FLOMAX 0.8 MG PO (21:03)
[2025-03-16] MEDS: MIRALAX 17 GRAMS PO (21:10)
[2025-03-16 21:34] LABS: Glucose - Point of Care 131 mg/dl (70-99)
[2025-03-16 23:08] VITALS: BP 128/56
[2025-03-17 03:00] VITALS: BP 97/37
[2025-03-17 06:00] VITALS: BMI 27.5
[2025-03-17 07:00] VITALS: BP 106/48
[2025-03-17 07:21] LABS: Glucose - Point of Care 150 mg/dl (70-99)
--- NOTE | 2025-03-17 08:32 | W.PN.HOSP.TC ---
Today's Communication/Plan
-
f/w urology recommendations
ok to use aspirin
await blood work, if HGB less than 8, will give blood transfusion.
Assessment / Plan
Assessment / Plan
Physical Exam
General: Comfortable, Conversant and Obese; No Pain, Fever or Chills
HEENT: Normocephalic, Anicteric, Moist mucous membranes, PERRLA, [place] Conjunctivae and No Ptosis
Respiratory: Clear;
Cardiac: S1/S2, + murmur
GI: Soft, Non Tender, Non Distended, Normal Bowel Sounds
Genito-urinary: Claire (CBI draining pink color, no clots)
Musculoskeletal: No Clubbing, No Cyanosis, no edema
Neuro: AO x 3, No Motor Deficits, Nonfocal/grossly intact, No Slurred Speech, Facial Droop, Tremors or Sedated
Psych: Calm
A/P
#Acute blood loss anemia due to hematuria via chronic indwelling Claire catheter POA, exacerbated by use of Eliquis/Plavix
- Patient took Eliquis and Plavix this a.m. 03/15/2025
- Holding Eliquis and Plavix
-Hold fish oil
- urology is managing CBI
- Urine culture : No growth
- Finish Augmentin 3 days left due to stop 03/18/2025
- Continue CBI until clear
- Continue Flomax 0.8 mg p.o. twice daily
# constipation
resolving
given Dulcolax & MiraLAX
#History of CAUTI with bacteremia blood cultures growing Klebsiella oxytoca 03/02/2025
-Treated with IV cefepime then Augmentin x 14 days should be done on 03/18/2025
Indwelling Claire catheter initially placed by Dr. Mayes at [facility] for BPH
- Repeat blood cultures on 03/04/2025 were negative
#Hx bladder soft tissue mass: Seen as incidental finding on renal ultrasound. 1.7 cm soft tissue mass in the urinary bladder lumen
- Patient was to follow-up with urology for outpatient cystoscopy
#Recent traumatic rhabdomyolysis and FELIZ due to fall with prolonged floor lying
-Treated with IV fluids creat was 3 declined to 1 on discharge
Per patient and family is better than baseline using walker without any difficulty
#CAD status post stents LAD June 2024
Recent Effient changed to Plavix as Eliquis was started 03/02/2025
No chest pain
-Hold Plavix
d/w urologist Dr Sharp, ok to use aspirin.
- Continue Crestor 20 mg every afternoon
- hold fish oil
#Chronic heart failure preserved EF
#Chronic peripheral edema
daily weights
-Continue Entresto with hold parameters
2D echo: EF 50-55%, no valvular disease
#Persistent A-fib
- Hold Eliquis
#DM 2 with recent hyperglycemia
HgbA1c 7.3 on 03/02/2025
-Accu-Cheks with SSI low
-Continue NovoLog 70/30 16 units twice daily
-Continue Janumet 1 tab p.o. twice daily
-1800 ADA low-cholesterol diet
DVT prophylaxis
Hold Eliquis
Place SCDs
Total time spent to see the patient, examine the patient, review data and lab result, discuss treatment plan with patient, nursing staff around 55 minutes
Anticipated Discharge: 24 - 48 hours
Subjective/Interval History
-
Date of Service: March 17, 2025
No chest pain
No sob
No abd pain
Less hematuria
Objective Data
-
Labs:
Laboratory Results
03/17/25
06:54
WBC Pending
Hgb Pending
Hct Pending
Plt Count Pending
Sodium Pending
Potassium Pending
Chloride Pending
Carbon Dioxide Pending
BUN Pending
Creatinine Pending
Glucose Pending
Calcium Pending
Total Bilirubin Pending
AST Pending
ALT Pending
Alkaline Phosphatase Pending
Vital Signs:
Vital Signs
Temp Pulse Resp BP Pulse Ox
98.9 F 82 24 106/48 96
03/17/25 07:00 03/17/25 07:00 03/17/25 07:00 03/17/25 07:00 03/17/25 07:00
I&O
03/16/25 03/17/25 03/18/25
06:59 06:59 06:59
Intake Total 1160 / 1160 480 / 480
Output Total 5225 / 5225 -1900 / -1900
Balance -4065 / -4065 2380 / 2380
[2025-03-17] MEDS: ENTRESTO 49 MG/51 MG PO (08:49)
[2025-03-17] MEDS: GLUCOPHAGE 1000 MG PO ×2 (08:49→17:26)
[2025-03-17] MEDS: JANUVIA 50 MG PO ×2 (08:49→17:26)
[2025-03-17 08:50] LABS: ALT (SGPT) 14 U/L (0-50); AST (SGOT) 15 U/L (17-59); Albumin 2.8 g/dl (3.5-5.0); Alkaline Phosphatase 68 U/L (38-126); Blood Urea Nitrogen 31 mg/dl (9-20); Calcium 8.2 mg/dl (8.4-10.2); Carbon Dioxide 26 mmol/L (22-30); Chloride 103 mmol/L (98-107); Estimated Creatinine Clearance 53 ml/min; Glucose 138 mg/dl (70-99); Potassium 5.1 mmol/L (3.5-5.1); Sodium 136 mmol/L (135-145); Total Bilirubin 0.7 mg/dl (0.2-1.3); Total Protein 5.8 g/dl (6.3-8.2); eGFR > 60.00
[2025-03-17] MEDS: LOW STRENGTH ASPIRIN 81 MG PO (08:50)
[2025-03-17] MEDS: AUGMENTIN 875 MG/125 MG 1 TABLET PO ×2 (08:50→20:50)
[2025-03-17] MEDS: NOVOLOG MIX 70/30 FLEXPEN 16 UNITS SC ×2 (08:50→17:27)
[2025-03-17] MEDS: NOVOLOG FLEXPEN-LOW RESISTANCE 1 UNITS SC (08:50)
[2025-03-17 08:51] LABS: % Basophils 0.7 % (0-2); % Eosinophils 2.2 % (0-6); % Immature Granulocytes 0.2 % (0-0.5); % Lymphocytes 17.3 % (20.5-51.1); % Monocytes 13.3 % (1.7-9.3); % Neutrophils 66.3 % (42.2-75.2); Absolute Basophils 0.1 10^3/uL (0-0.2); Absolute Eosinophils 0.2 10^3/uL (0-0.7); Absolute Lymphocytes 1.5 10^3/uL (1.2-3.4); Absolute Monocytes 1.2 10^3/uL (0.1-0.6); Absolute Neutrophils 5.8 10^3/uL (1.4-6.5); Hematocrit 24.9 % (39.0-52.0); Hemoglobin 8.4 g/dL (13.0-18.0); Mean Corp Hgb Conc. 33.7 g/dL (33.0-37.0); Mean Corpuscular Hgb 28.2 pg (27.0-31.0); Mean Corpuscular Volume 83.6 fL (80.0-94.0); Mean Platelet Volume 9.8 fL (7.4-10.4); Nucleated Red Blood Cells % 0 % (-); Platelet Count 273 10^3/uL (130-400); Red Blood Cell Count 2.98 10^6/uL (4.70-6.10); Red Cell Dist. Width 15.2 % (11.5-14.5); White Blood Cell Count 8.8 10^3/uL (4.8-10.8)
--- NOTE | 2025-03-17 11:04 | W.PN.URO.CBU ---
Today's Communication / Plan
-
Trend hematuria
Continue CBI
Assessment / Plan
-
80M with chronic laura catheter
Admitted with CAUTI and gross hematuria
Hematuria stable on CBI
Off Eliquis and Plavix, last dose 03/15
- Continue to hold anticoagulation and trend hematuria. Okay to continue aspirin
- Continue CBI, irrigate PRN
- Continue abx for UTI
- Consider inpatient intervention if hematuria persists off blood thinners - Plavix still active, now off x2 days
Patient states he wants to transfer his urologic care here
Will need outpatient follow up
Diagnosis
-
Date of Service: March 17, 2025
-
Patient Diagnosis:
Gross hematuria
Bladder Mass
Chronic Laura/retention
CAUTI
Subjective
-
urine red on CBI off Eliquis
Objective
-
Vital Signs
Temp Pulse Resp BP Pulse Ox
98.9 F 82 24 106/48 96
03/17/25 07:00 03/17/25 08:49 03/17/25 07:00 03/17/25 08:49 03/17/25 07:00
Intake and Output
03/16/25 03/17/25 03/18/25
06:59 06:59 06:59
Intake Total 1160 / 1160 480 / 480
Output Total 5225 / 5225 -1900 / -1900
Balance -4065 / -4065 2380 / 2380
Intake:
Oral fluids 1160 / 1160 480 / 480
Output:
True Urine Output from CBI 5225 / 5225 -1900 / -1900
Other:
Number of immeasurable emeses? 1
Laboratory Results
03/17/25 06:54
03/17/25 06:54
Physical Exam
-
General - well developed, well nourished, no acute distress
Chest - clear bilaterally
Abdomen - soft, non-tender
Urine light red on CBI
[2025-03-17 11:44] LABS: Glucose - Point of Care 219 mg/dl (70-99)
[2025-03-17] MEDS: NOVOLOG FLEXPEN-LOW RESISTANCE 2 UNITS SC ×2 (13:26→17:28)
[2025-03-17 15:00] VITALS: BP 97/37
[2025-03-17 15:30] VITALS: BP 110/58
[2025-03-17 16:46] LABS: Glucose - Point of Care 242 mg/dl (70-99)
[2025-03-17] MEDS: CRESTOR 20 MG PO (17:26)
[2025-03-17] MEDS: ENTRESTO 49 MG/51 MG 1 TAB PO (20:50)
[2025-03-17] MEDS: FLOMAX 0.8 MG PO (20:51)
[2025-03-17] MEDS: MIRALAX 17 GRAMS PO (20:51)
[2025-03-17 21:35] LABS: Glucose - Point of Care 156 mg/dl (70-99)
[2025-03-17 22:30] VITALS: BP 122/43
[2025-03-18] VITALS (10 sets, daily range): BP systolic 90–122; BP diastolic 34–97; BMI 28.0
[2025-03-18 06:22] LABS: % Basophils 0.7 % (0-2); % Eosinophils 4.1 % (0-6); % Immature Granulocytes 0.2 % (0-0.5); % Lymphocytes 21.4 % (20.5-51.1); % Monocytes 12.3 % (1.7-9.3); % Neutrophils 61.3 % (42.2-75.2); Absolute Basophils 0.1 10^3/uL (0-0.2); Absolute Eosinophils 0.3 10^3/uL (0-0.7); Absolute Lymphocytes 1.8 10^3/uL (1.2-3.4); Hematocrit 22.9 % (39.0-52.0); Hemoglobin 7.8 g/dL (13.0-18.0); Mean Corp Hgb Conc. 34.1 g/dL (33.0-37.0); Mean Corpuscular Hgb 28.4 pg (27.0-31.0); Mean Corpuscular Volume 83.3 fL (80.0-94.0); Mean Platelet Volume 9.6 fL (7.4-10.4); Nucleated Red Blood Cells % 0 % (-); Platelet Count 225 10^3/uL (130-400); Red Blood Cell Count 2.75 10^6/uL (4.70-6.10); White Blood Cell Count 8.2 10^3/uL (4.8-10.8)
[2025-03-18 06:37] LABS: ALT (SGPT) 14 U/L (0-50); AST (SGOT) 17 U/L (17-59); Albumin 2.6 g/dl (3.5-5.0); Alkaline Phosphatase 65 U/L (38-126); Blood Urea Nitrogen 38 mg/dl (9-20); Calcium 7.8 mg/dl (8.4-10.2); Carbon Dioxide 24 mmol/L (22-30); Chloride 103 mmol/L (98-107); Estimated Creatinine Clearance 53 ml/min; Glucose 119 mg/dl (70-99); Potassium 4.8 mmol/L (3.5-5.1); Sodium 134 mmol/L (135-145); Total Bilirubin 0.6 mg/dl (0.2-1.3); Total Protein 5.6 g/dl (6.3-8.2); eGFR > 60.00
[2025-03-18 07:21] LABS: Glucose - Point of Care 138 mg/dl (70-99)
[2025-03-18] MEDS: NOVOLOG FLEXPEN-LOW RESISTANCE SC (08:13)
--- NOTE | 2025-03-18 08:45 | W.PN.HOSP.TC ---
Addendum entered and electronically signed by Romana Campbell MD 03/18/25 09:03:
Hyponatremia, mild
Original Note:
Today's Communication/Plan
-
Follow with urology
Give blood transfusion
Assessment / Plan
Assessment / Plan
Physical Exam
General: Comfortable, Conversant and Obese; No Pain, Fever or Chills
HEENT: Normocephalic, Anicteric, Moist mucous membranes, PERRLA, [place] Conjunctivae and No Ptosis
Respiratory: Clear;
Cardiac: S1/S2, + murmur
GI: Soft, Non Tender, Non Distended, Normal Bowel Sounds
Genito-urinary: Claire (CBI draining pink color, no clots)
Musculoskeletal: No Clubbing, No Cyanosis, no edema
Neuro: AO x 3, No Motor Deficits, Nonfocal/grossly intact, No Slurred Speech, Facial Droop, Tremors or Sedated
Psych: Calm
A/P
#Acute blood loss anemia due to hematuria via chronic indwelling Claire catheter POA, exacerbated by use of Eliquis/Plavix
- Patient took Eliquis and Plavix since 03/15/2025
-Hold fish oil
- urology is managing CBI
- Urine culture : No growth
- Finish Augmentin 3 days left due to stop 03/18/2025
- Continue CBI until clear
- Continue Flomax 0.8 mg p.o. twice daily
- will give 2 units of blood, consent signed, pt verbalized understanding to potential risks & benefits with blood transfusion and agreed to transfusion.
# constipation
resolving
given Dulcolax & MiraLAX
#History of CAUTI with bacteremia blood cultures growing Klebsiella oxytoca 03/02/2025
-Treated with IV cefepime then Augmentin x 14 days should be done on 03/18/2025
Indwelling Claire catheter initially placed by Dr. Mayes at [facility] for BPH
- Repeat blood cultures on 03/04/2025 were negative
#Hx bladder soft tissue mass: Seen as incidental finding on renal ultrasound. 1.7 cm soft tissue mass in the urinary bladder lumen
- Patient was to follow-up with urology for outpatient cystoscopy
#Recent traumatic rhabdomyolysis and FELIZ due to fall with prolonged floor lying
-Treated with IV fluids creat was 3 declined to 1 on discharge
Per patient and family is better than baseline using walker without any difficulty
#CAD status post stents LAD June 2024
Recent Effient changed to Plavix as Eliquis was started 03/02/2025
No chest pain
-Hold Plavix
d/w urologist stephanie Qureshi to use aspirin.
- Continue Crestor 20 mg every afternoon
- hold fish oil
#Chronic heart failure preserved EF
#Chronic peripheral edema
daily weights
-Continue Entresto with hold parameters
2D echo: EF 50-55%, no valvular disease
#Persistent A-fib
- Hold Eliquis
#DM 2 with recent hyperglycemia
HgbA1c 7.3 on 03/02/2025
-Accu-Cheks with SSI low
-Continue NovoLog 70/30 16 units twice daily
-Continue Janumet 1 tab p.o. twice daily
-1800 ADA low-cholesterol diet
DVT prophylaxis
Hold Eliquis
Place SCDs
Total time spent to see the patient, examine the patient, review data and lab result, discuss treatment plan with patient, nursing staff around 55 minutes
Anticipated Discharge: > 48 hours
Subjective/Interval History
-
Date of Service: March 18, 2025
No abdominal pain
No dysuria
No chest pain or sob
Denies fatigue
Objective Data
-
Labs:
Laboratory Results
03/18/25
05:53
WBC 8.2
Hgb 7.8 L
Hct 22.9 L
Plt Count 225
Sodium 134 L
Potassium 4.8
Chloride 103
Carbon Dioxide 24
BUN 38 H
Creatinine 1.2
Glucose 119 H
Calcium 7.8 L
Total Bilirubin 0.6
AST 17
ALT 14
Alkaline Phosphatase 65
Vital Signs:
Vital Signs
Temp Pulse Resp BP Pulse Ox
99.1 F 85 19 106/47 91
03/18/25 07:00 03/18/25 07:00 03/18/25 07:00 03/18/25 07:00 03/18/25 07:00
I&O
03/17/25 03/18/25 03/19/25
06:59 06:59 06:59
Intake Total 480 / 480 1500 / 1500
Output Total -1900 / -1900 1700 / 1700
Balance 2380 / 2380 -200 / -200
[2025-03-18] MEDS: ENTRESTO 49 MG/51 MG PO (08:51)
[2025-03-18] MEDS: LOW STRENGTH ASPIRIN 81 MG PO (08:51)
[2025-03-18] MEDS: JANUVIA 50 MG PO ×2 (08:51→17:14)
[2025-03-18] MEDS: AUGMENTIN 875 MG/125 MG 1 TABLET PO ×2 (08:51→20:19)
[2025-03-18] MEDS: GLUCOPHAGE 1000 MG PO ×2 (08:51→17:14)
[2025-03-18] MEDS: NOVOLOG MIX 70/30 FLEXPEN 16 UNITS SC ×2 (08:52→17:15)
--- NOTE | 2025-03-18 10:50 | W.PN.URO.CBU ---
Today's Communication / Plan
-
Trend hematuria, transfused today
Hematuria near resolved, clamp trial tomorrow
Stop antibiotic
Assessment / Plan
-
80M with chronic laura catheter
Admitted with recent CAUTI and new gross hematuria
Known possible bladder mass
Hematuria stable on CBI
Off Eliquis and Plavix, last dose 03/15
- Continue to hold anticoagulation and trend hematuria. Okay to continue aspirin
- Hematuria near resolved on slow CBI 03/18
- Transfuse as needed
- Clamp CBI tomorrow AM
- Consider inpatient intervention if hematuria persists off blood thinners - Plavix still active, now off x3 days
- Urine culture negative, treatment course of prior UTI completed. Okay to stop antibiotics
- Possible bladder mass vs mucosal changes from chronic laura catheter on US 02/2025
- Will need outpatient cystoscopy to evaluate
Prior plan was for patient to follow up with established urologist
Patient states he wants to transfer his urologic care here
Diagnosis
-
Date of Service: March 18, 2025
-
Patient Diagnosis:
Gross hematuria
Bladder Mass
Chronic Laura/retention
CAUTI
Subjective
-
Significantly improved hematuria
Worsened anemia
Objective
-
Vital Signs
Temp Pulse Resp BP Pulse Ox
98.0 F 89 19 99/97 91
03/18/25 10:35 03/18/25 10:35 03/18/25 10:35 03/18/25 10:35 03/18/25 08:35
Intake and Output
03/17/25 03/18/25 03/19/25
06:59 06:59 06:59
Intake Total 480 / 480 1500 / 1500 0 / 0
Output Total -1900 / -1900 1700 / 1700
Balance 2380 / 2380 -200 / -200 0 / 0
Intake:
Oral fluids 480 / 480 1500 / 1500
Blood Product Amount Infused ( 0 0
mL)
Packed Rbc Leukoreduced Unit 0 / 0
[id number]
Output:
True Urine Output from CBI -1899 / -0 1699 / 1699
Other:
Number of immeasurable emeses? 1
Laboratory Results
03/18/25 05:53
03/18/25 05:53
Physical Exam
-
General - well developed, well nourished, no acute distress
Chest - clear
Abdomen - soft, non-tender
- alura in place, peach urine on slow CBI
[2025-03-18 11:48] LABS: Glucose - Point of Care 228 mg/dl (70-99)
[2025-03-18] MEDS: NOVOLOG FLEXPEN-LOW RESISTANCE 2 UNITS SC (12:30)
[2025-03-18] MEDS: LIDOCAINE URO-JET 2% 1 SYRINGE TOPICAL (12:43)
[2025-03-18] MEDS: LASIX 40 MG IV (13:09)
--- NOTE | 2025-03-18 15:54 | PTCARENOTE ---
On initial assessment this am, pt's lungs were noted with fine scattered rales. Pt ordered [address] Campbell made aware of pt's lung sounds and it was decided to administer Lasix 40mg IV between units of blood. Lasix 40mg IV given between
units and after 2nd unit transfused, pt's lungs noted to be clear and diminished. No rales noted.
[2025-03-18 17:01] LABS: Glucose - Point of Care 265 mg/dl (70-99)
[2025-03-18] MEDS: CRESTOR 20 MG PO (17:14)
[2025-03-18] MEDS: NOVOLOG FLEXPEN-LOW RESISTANCE 3 UNITS SC (17:14)
[2025-03-18] MEDS: FLOMAX 0.8 MG PO (20:19)
[2025-03-18] MEDS: MIRALAX 17 GRAMS PO (20:19)
[2025-03-18] MEDS: ENTRESTO 49 MG/51 MG 1 TAB PO (20:19)
[2025-03-18 21:26] LABS: Glucose - Point of Care 210 mg/dl (70-99)
[2025-03-19 06:00] VITALS: BMI 27.7
[2025-03-19 07:00] VITALS: BP 119/52
[2025-03-19 07:16] LABS: Glucose - Point of Care 148 mg/dl (70-99)
[2025-03-19] MEDS: NOVOLOG FLEXPEN-LOW RESISTANCE SC (07:18)
--- NOTE | 2025-03-19 07:48 | W.PN.URO.CBU ---
Today's Communication / Plan
-
Hold anticoagulation
Hematuria clearing and mild with CBI clamped this AM
Trend HGB
Assessment / Plan
-
80M with chronic laura catheter
Admitted with recent CAUTI and new gross hematuria
Known possible bladder mass
Hematuria stable on CBI
Off Eliquis and Plavix, last dose 03/15
- Continue to hold anticoagulation and trend hematuria. Okay to continue aspirin
- Hematuria near resolved with pink urine off CBI this AM
- Transfuse as needed - repeat HGB pending post transfusion 03/18
- Consider inpatient intervention if hematuria persists off blood thinners - Plavix still active, now off x4 days
- Urine culture negative, treatment course of prior UTI completed. Okay to stop antibiotics
- Possible bladder mass vs mucosal changes from chronic laura catheter on 02/2025
- Will need outpatient cystoscopy to evaluate
Diagnosis
-
Date of Service: March 19, 2025
-
Patient Diagnosis:
Gross hematuria
Bladder Mass
Chronic Laura/retention
CAUTI
Subjective
-
No clotting overnight
labs pending
CBI clamped this AM
Some pelvic pain
Objective
-
Vital Signs
Temp Pulse Resp BP Pulse Ox
98.3 F 69 14 108/45 96
03/18/25 23:04 03/18/25 23:04 03/18/25 23:04 03/18/25 23:04 03/18/25 23:04
Intake and Output
03/18/25 03/19/25 03/20/25
06:59 06:59 06:59
Intake Total 1500 / 1500 1480 / 1480
Output Total 1700 / 1700 4600 / 4600
Balance -200 / -200 -3120 / -3120
Intake:
Oral fluids 1500 / 1500 480 / 480
Blood products 500 / 500
Blood Product Amount Infused ( 500 / 500
mL)
Packed Rbc Leukoreduced Unit 250 / 250
[id number]
Packed Rbc Leukoreduced Unit 250 / 250
[id number]
Output:
True Urine Output from CBI 1700 / 1700 4600 / 4600
Physical Exam
-
General - well developed, well nourished, no acute distress
Chest - clear
Abdomen - soft, non-tender
- laura in place, pink urine with CBI clamped
[2025-03-19 09:22] LABS: % Basophils 0.9 % (0-2); % Eosinophils 5.5 % (0-6); % Immature Granulocytes 0.4 % (0-0.5); % Lymphocytes 27.2 % (20.5-51.1); % Monocytes 13.3 % (1.7-9.3); % Neutrophils 52.7 % (42.2-75.2); Absolute Basophils 0.1 10^3/uL (0-0.2); Absolute Eosinophils 0.4 10^3/uL (0-0.7); Absolute Neutrophils 3.9 10^3/uL (1.4-6.5); Hematocrit 27.9 % (39.0-52.0); Hemoglobin 9.6 g/dL (13.0-18.0); Mean Corp Hgb Conc. 34.4 g/dL (33.0-37.0); Mean Corpuscular Volume 84.3 fL (80.0-94.0); Mean Platelet Volume 9.6 fL (7.4-10.4); Nucleated Red Blood Cells % 0 % (-); Platelet Count 221 10^3/uL (130-400); Red Blood Cell Count 3.31 10^6/uL (4.70-6.10); Red Cell Dist. Width 14.9 % (11.5-14.5); White Blood Cell Count 7.5 10^3/uL (4.8-10.8)
[2025-03-19] MEDS: ENTRESTO 49 MG/51 MG 1 TAB PO ×2 (09:23→19:43)
[2025-03-19] MEDS: GLUCOPHAGE 1000 MG PO ×2 (09:23→18:21)
[2025-03-19] MEDS: JANUVIA 50 MG PO ×2 (09:23→18:21)
[2025-03-19] MEDS: LOW STRENGTH ASPIRIN 81 MG PO (09:24)
[2025-03-19] MEDS: AUGMENTIN 875 MG/125 MG 1 TABLET PO (09:24)
[2025-03-19] MEDS: NOVOLOG MIX 70/30 FLEXPEN 16 UNITS SC (09:25)
[2025-03-19 09:41] LABS: ALT (SGPT) 21 U/L (0-50); AST (SGOT) 26 U/L (17-59); Albumin 2.9 g/dl (3.5-5.0); Alkaline Phosphatase 75 U/L (38-126); Blood Urea Nitrogen 31 mg/dl (9-20); Calcium 8.3 mg/dl (8.4-10.2); Carbon Dioxide 25 mmol/L (22-30); Chloride 102 mmol/L (98-107); Estimated Creatinine Clearance 64 ml/min; Glucose 196 mg/dl (70-99); Sodium 135 mmol/L (135-145); Total Bilirubin 0.8 mg/dl (0.2-1.3); eGFR > 60.00
[2025-03-19] MEDS: TYLENOL 650 MG PO (09:46)
[2025-03-19 11:09] LABS: Glucose - Point of Care 270 mg/dl (70-99)
[2025-03-19] MEDS: DETROL LA 4 MG PO (11:56)
[2025-03-19] MEDS: DILAUDID 0.5 MG IV ×2 (11:57→18:21)
[2025-03-19] MEDS: SENOKOT 17.2 MG PO ×2 (12:33→19:36)
[2025-03-19] MEDS: COLACE 100 MG PO ×2 (12:33→19:37)
[2025-03-19] MEDS: NOVOLOG FLEXPEN-LOW RESISTANCE 3 UNITS SC ×2 (13:45→18:19)
[2025-03-19 15:00] VITALS: BP 103/48
--- NOTE | 2025-03-19 15:42 | W.PN.HOSP.TC ---
Today's Communication/Plan
-
Watch Hematuria
Increase Insulin dose.
Assessment / Plan
Assessment / Plan
80-year-old with hematuria and clots
Claire with bloody urine
CVS: S1-S2 irregular
Chest: CTA B/L
Abdomen: Soft, mild tenderness suprapubic, Bowel sounds present
Extremities: No edema
# CAUTI and new gross hematuria
Cavity with bacteremia blood cultures with Klebsiella on 03/02/2025. Treated with IV cefepime and then Augmentin for 14 days to be completed on 03/18/2025.
History of enlarged prostate with urinary retention and chronic Claire catheter placed by Dr. Mayes at [facility]
Possible bladder mass
Hematuria exacerbated by Plavix and Eliquis
Last dose was 03/15/2025
Hold anticoagulation and antiplatelets. Okay to continue aspirin per urology
CBI turned off this morning, looks more bloody now. If has cramps/clots may need to restart CBI
Acute blood loss anemia status post 2 unit of blood on 03/18/2025-hemoglobin up to 9.6 today
Transfuse as needed
Urine culture negative. Okay to stop antibiotics per urology,stopped.
May need cystoscopy at some point
Continue Flomax
Urology following
# Mild hyponatremia-Resolved.
# Constipation-resolved
# Traumatic rhabdomyolysis with FELIZ secondary to fall
With treatment creatinine came down from 3-1
# Coronary disease with history of LAD stent June 2024
Recently Effient was changed to Plavix and Eliquis was started on 03/02/2025
Holding Plavix now, on aspirin
Continue Crestor
# Chronic HFpEF
Continue Entresto
Echo EF 50 to 55% no valvular disease
# Persistent A-fib-hold Eliquis secondary to hematuria
# Diabetes with hemoglobin A1c 7.3 on 03/02/2025
Takes NovoLog 70/30 16 units twice daily, Janumet 1 tablet p.o. daily, Accu-Cheks and sliding scale coverage as OP
Increase NovoLog 70/30 to 18 BID
# Hypoalbuminemia
# DVT prophylaxis-holding Eliquis-continue SCDs
# Full code
Anticipated Discharge: > 48 hours
Subjective/Interval History
-
Date of Service: March 19, 2025
Objective Data
-
Labs:
Laboratory Results
03/19/25
08:43
WBC 7.5
Hgb 9.6 L D
Hct 27.9 L
Plt Count 221
Sodium 135
Potassium 5.0
Chloride 102
Carbon Dioxide 25
BUN 31 H
Creatinine 1.0
Glucose 196 H
Calcium 8.3 L
Total Bilirubin 0.8
AST 26
ALT 21
Alkaline Phosphatase 75
Vital Signs:
Vital Signs
Temp Pulse Resp BP Pulse Ox
97.6 F 65 18 103/48 93
03/19/25 15:00 03/19/25 15:00 03/19/25 15:00 03/19/25 15:00 03/19/25 15:00
I&O
03/18/25 03/19/25 03/20/25
06:59 06:59 06:59
Intake Total 1500 / 1500 1480 / 1480
Output Total 1700 / 1700 4600 / 4600 400 / 400
Balance -200 / -200 -3120 / -3120 -400 / -400
--- NOTE | 2025-03-19 15:43 | CM ---
Chart reviewed. Care ongoing.
Therapy rec HH, patient current w/ [facility]
CM continues to follow for d/c planning
Plan: Home; MAGY w/ [facility]
[2025-03-19 16:36] LABS: Glucose - Point of Care 273 mg/dl (70-99)
[2025-03-19] MEDS: NOVOLOG MIX 70/30 FLEXPEN 18 UNITS SC (18:20)
[2025-03-19] MEDS: CRESTOR 20 MG PO (18:21)
[2025-03-19] MEDS: ZOFRAN 4 MG IV (19:37)
[2025-03-19] MEDS: PERCOCET 5/325 1 TABLET PO (20:48)
[2025-03-19] MEDS: FLOMAX 0.8 MG PO (20:49)
[2025-03-19 21:50] LABS: Glucose - Point of Care 206 mg/dl (70-99)
[2025-03-19 23:02] VITALS: BP 106/52
[2025-03-20] MEDS: DILAUDID 0.5 MG IV (00:04)
[2025-03-20] MEDS: MIRALAX PO ×2 (00:10→20:02)
--- NOTE | 2025-03-20 00:14 | PTCARENOTE ---
Patient has been complaining of intermittent nausea. IV Zofran was ordered by TOOL ANALYST, see MAR for administration. Abdomen was soft and nontender. Patient was noted to be vomiting brownish/green throw up. Nurse practitioner made aware. Patient denies
abdominal pain; however, he does complain of pelvic/bladder pain. IV Dilaudid and PO Percocet administered per order. Claire is noted to be draining bloody urine. Claire hand-irrigated to remove small clots. Patient was also bladder scanned, bladder
noted to be empty.
[2025-03-20] MEDS: ZOFRAN 4 MG IV ×2 (03:05→09:08)
[2025-03-20] MEDS: PERCOCET 5/325 1 TABLET PO (03:35)
[2025-03-20 06:00] VITALS: BMI 27.5
[2025-03-20 07:00] VITALS: BP 111/51
[2025-03-20 07:29] LABS: Glucose - Point of Care 245 mg/dl (70-99)
[2025-03-20 08:06] LABS: Hemoglobin 10.4 g/dL (13.0-18.0); Mean Corp Hgb Conc. 33.5 g/dL (33.0-37.0); Mean Corpuscular Hgb 28.3 pg (27.0-31.0); Mean Corpuscular Volume 84.2 fL (80.0-94.0); Mean Platelet Volume 9.5 fL (7.4-10.4); Platelet Count 248 10^3/uL (130-400); Red Blood Cell Count 3.68 10^6/uL (4.70-6.10); Red Cell Dist. Width 14.9 % (11.5-14.5); White Blood Cell Count 7.2 10^3/uL (4.8-10.8)
[2025-03-20 08:53] LABS: Blood Urea Nitrogen 39 mg/dl (9-20); Calcium 8.4 mg/dl (8.4-10.2); Carbon Dioxide 27 mmol/L (22-30); Chloride 96 mmol/L (98-107); Estimated Creatinine Clearance 58 ml/min; Glucose 214 mg/dl (70-99); Potassium 4.6 mmol/L (3.5-5.1); Sodium 135 mmol/L (135-145); eGFR > 60.00
[2025-03-20] MEDS: LOW STRENGTH ASPIRIN 81 MG PO (09:06)
[2025-03-20] MEDS: JANUVIA 50 MG PO ×2 (09:07→16:54)
[2025-03-20] MEDS: COLACE 100 MG PO (09:07)
[2025-03-20] MEDS: SENOKOT 17.2 MG PO (09:07)
[2025-03-20] MEDS: GLUCOPHAGE 1000 MG PO ×2 (09:07→16:54)
[2025-03-20] MEDS: ENTRESTO 49 MG/51 MG 1 TAB PO ×2 (09:07→19:59)
[2025-03-20] MEDS: NOVOLOG MIX 70/30 FLEXPEN SC ×2 (09:17→10:12)
[2025-03-20] MEDS: NOVOLOG FLEXPEN-LOW RESISTANCE 2 UNITS SC (09:18)
[2025-03-20] MEDS: PERCOCET 5/325 2 TABLET PO (10:10)
--- NOTE | 2025-03-20 11:13 | W.PN.URO.CBU ---
Today's Communication / Plan
-
continue present care hand irrigate prn
Assessment / Plan
-
80M with chronic laura catheter
Admitted with recent CAUTI and new gross hematuria
Known possible bladder mass
Hematuria stable on CBI
Off Eliquis and Plavix, last dose 03/15
- Continue to hold anticoagulation and trend hematuria. Okay to continue aspirin
- Hematuria near resolved with pink urine off CBI this AM
- Transfuse as needed - repeat HGB pending post transfusion 03/18
- Consider inpatient intervention if hematuria persists off blood thinners - Plavix still active, now off x4 days
- Urine culture negative, treatment course of prior UTI completed. Okay to stop antibiotics
- Possible bladder mass vs mucosal changes from chronic laura catheter on 02/2025
- Will need outpatient cystoscopy to evaluate
Diagnosis
-
Date of Service: March 20, 2025
-
Patient Diagnosis:
Post Op Day:
Patient Diagnosis:
Gross hematuria
Bladder Mass
Chronic Laura/retention
CAUTI
Subjective
-
ongoing hematuria bladder mass and cauti previusly on anticoagulants
Objective
-
Vital Signs
Temp Pulse Resp BP Pulse Ox
98.7 F 91 16 111/51 91
03/20/25 07:00 03/20/25 09:07 03/20/25 07:00 03/20/25 09:07 03/20/25 07:00
Intake and Output
03/19/25 03/20/25 03/21/25
06:59 06:59 06:59
Intake Total 1480 / 1480 1140 / 1140
Output Total 4600 / 4600 850 / 850
Balance -3120 / -3120 290 / 290
Intake:
Oral fluids 480 / 480 1140 / 1140
Blood products 500 / 500
Blood Product Amount Infused ( 500 / 500
mL)
Packed Rbc Leukoreduced Unit 250 / 250
[id number]
Packed Rbc Leukoreduced Unit 250 / 250
[id number]
Output:
Urine, Voided 450 / 450
True Urine Output from CBI 4600 / 4600 400 / 400
Laboratory Results
03/20/25 06:36
03/20/25 06:36
Review of Systems
-
: Bleeding
Physical Exam
-
General - well developed, well nourished, no acute distress
Chest - clear bilaterally
Abdomen - soft, non-tender, positive bowel sounds, no CVAT, no incisional pain or distention
Genitalia - normal
Rectal - normal
Skin - warm & dry with no rash
Neuro - AOx3, no motor deficits
Extremities - no clubbing, no cyanosis, no edema
Incision - clean, dry
Dressing - clean, dry, intact
Care Review
Data Reviewed
Discussed with: Nursing
[2025-03-20 11:39] LABS: Glucose - Point of Care 253 mg/dl (70-99)
[2025-03-20 12:50] VITALS: BP 114/52
[2025-03-20] MEDS: NOVOLOG FLEXPEN-LOW RESISTANCE 3 UNITS SC (13:19)
--- NOTE | 2025-03-20 14:31 | W.PN.UPDATE ---
Update Note
Progress Note Update
Given persistence of hematuria and patient's reluctance to return to his established, long-standing urologist, will bring to OR tomorrow for cystoscopy/ clot evacuation, fulguration of bleeding and possible TURBT.
[2025-03-20 15:00] VITALS: BP 102/48
--- NOTE | 2025-03-20 15:07 | W.PN.HOSP.TC ---
Today's Communication/Plan
-
For Cystoscopy tomorrow
Assessment / Plan
Assessment / Plan
80-year-old with hematuria and clots
Claire with bloody urine
CVS: S1-S2 irregular
Chest: CTA B/L
Abdomen: Soft, mild tenderness suprapubic, Bowel sounds present
Extremities: No edema
# CAUTI and new gross hematuria
Cavity with bacteremia blood cultures with Klebsiella on 03/02/2025. Treated with IV cefepime and then Augmentin for 14 days to be completed on 03/18/2025.
History of enlarged prostate with urinary retention and chronic Claire catheter placed by Dr. Mayes at [facility]
Possible bladder mass
Hematuria exacerbated by Plavix and Eliquis
Last dose was 03/15/2025
Hold anticoagulation and antiplatelets. Okay to continue aspirin per urology
CBI turned off , looks more bloody now.
Acute blood loss anemia status post 2 unit of blood on 03/18/2025-hemoglobin better
Transfuse as needed
Urine culture negative. Okay to stop antibiotics per urology,stopped.
Continue Flomax
Urology following
for cysto tomorrow
# Mild hyponatremia-Resolved.
# Constipation-resolved
# Traumatic rhabdomyolysis with FELIZ secondary to fall
With treatment creatinine came down from 3-1
# Coronary disease with history of LAD stent June 2024
Recently Effient was changed to Plavix and Eliquis was started on 03/02/2025
Holding Plavix now, on aspirin
Continue Crestor
# Chronic HFpEF
Continue Entresto
Echo EF 50 to 55% no valvular disease
# Persistent A-fib-hold Eliquis secondary to hematuria
# Diabetes with hemoglobin A1c 7.3 on 03/02/2025
Takes NovoLog 70/30 16 units twice daily, Janumet 1 tablet p.o. daily, Accu-Cheks and sliding scale coverage as OP
Increase NovoLog 70/30 to 22 BID
# Hypoalbuminemia
# DVT prophylaxis-holding Eliquis-continue SCDs
# Full code
D/W and updated.
Anticipated Discharge: 24 - 48 hours
Subjective/Interval History
-
Date of Service: March 20, 2025
Objective Data
-
Labs:
Laboratory Results
03/20/25
06:36
WBC 7.2
Hgb 10.4 L
Hct 31.0 L
Plt Count 248
Sodium 135
Potassium 4.6
Chloride 96 L
Carbon Dioxide 27
BUN 39 H
Creatinine 1.1
Glucose 214 H
Calcium 8.4
Vital Signs:
Vital Signs
Temp Pulse Resp BP Pulse Ox
98.7 F 91 16 111/51 91
03/20/25 07:00 03/20/25 09:07 03/20/25 07:00 03/20/25 09:07 03/20/25 07:00
I&O
03/19/25 03/20/25 03/21/25
06:59 06:59 06:59
Intake Total 1480 / 1480 1140 / 1140
Output Total 4600 / 4600 850 / 850
Balance -3120 / -3120 290 / 290
[2025-03-20 16:30] LABS: Glucose - Point of Care 217 mg/dl (70-99)
[2025-03-20] MEDS: CRESTOR 20 MG PO (18:17)
[2025-03-20] MEDS: NOVOLOG MIX 70/30 FLEXPEN 22 UNITS SC (18:18)
[2025-03-20] MEDS: SENOKOT PO (20:02)
[2025-03-20] MEDS: FLOMAX 0.8 MG PO (20:02)
[2025-03-20] MEDS: COLACE PO (20:02)
[2025-03-20 22:14] LABS: Glucose - Point of Care 159 mg/dl (70-99)
[2025-03-20 23:06] VITALS: BP 106/45
[2025-03-21] VITALS (16 sets, daily range): BP systolic 108–146; BP diastolic 47–76; BMI 27.6
[2025-03-21 07:02] LABS: Hematocrit 26.6 % (39.0-52.0); Hemoglobin 9.1 g/dL (13.0-18.0); Mean Corp Hgb Conc. 34.2 g/dL (33.0-37.0); Mean Corpuscular Hgb 29.1 pg (27.0-31.0); Mean Platelet Volume 9.6 fL (7.4-10.4); Platelet Count 225 10^3/uL (130-400); Red Blood Cell Count 3.13 10^6/uL (4.70-6.10); Red Cell Dist. Width 14.8 % (11.5-14.5); White Blood Cell Count 6.5 10^3/uL (4.8-10.8)
[2025-03-21 08:33] LABS: Blood Urea Nitrogen 48 mg/dl (9-20); Calcium 7.8 mg/dl (8.4-10.2); Carbon Dioxide 25 mmol/L (22-30); Chloride 98 mmol/L (98-107); Estimated Creatinine Clearance 42 ml/min; Glucose 108 mg/dl (70-99); Sodium 131 mmol/L (135-145); eGFR 46.48
[2025-03-21] MEDS: ENTRESTO 49 MG/51 MG PO (08:45)
[2025-03-21] MEDS: GLUCOPHAGE PO (08:46)
[2025-03-21] MEDS: JANUVIA PO (08:46)
[2025-03-21] MEDS: LOW STRENGTH ASPIRIN 81 MG PO (08:46)
[2025-03-21] MEDS: NOVOLOG MIX 70/30 FLEXPEN SC (08:46)
[2025-03-21] MEDS: SENOKOT PO ×2 (08:52→19:37)
[2025-03-21] MEDS: COLACE PO ×2 (08:53→19:37)
--- NOTE | 2025-03-21 11:31 | CM ---
Chart reviewed. Care ongoing.
OR today for Cystoscopy
CM will cont to follow for d/c needs
Plan: Home; MAGY w/ [facility] when stable
[2025-03-21 11:39] LABS: Glucose - Point of Care 131 mg/dl (70-99)
--- NOTE | 2025-03-21 12:06 | W.SUR.PREOP ---
Pre-Operative Surgical Note
-
I have examined this patient prior to the performance of the scheduled procedure.
He agrees to surgical recommendation: cystoscopy, biopsy/resection/fulguration of bleeding bladder and/or prostate tissues.
Consent signed and placed on chart.
--- NOTE | 2025-03-21 14:19 | W.PN.HOSP.TC ---
Today's Communication/Plan
-
IVF
HOld Entresto
Assessment / Plan
Assessment / Plan
80-year-old with hematuria and clots
Claire with bloody urine
CVS: S1-S2 irregular
Chest: CTA B/L
Abdomen: Soft, mild tenderness suprapubic, Bowel sounds present
Extremities: No edema
# CAUTI and new gross hematuria
Cavity with bacteremia blood cultures with Klebsiella on 03/02/2025. Treated with IV cefepime and then Augmentin for 14 days to be completed on 03/18/2025.
History of enlarged prostate with urinary retention and chronic Claire catheter placed by Dr. Mayes at [facility]
Possible bladder mass
Hematuria exacerbated by Plavix and Eliquis
Last dose was 03/15/2025
Hold anticoagulation and antiplatelets. Okay to continue aspirin per urology
CBI turned off , looks more bloody now.
Acute blood loss anemia status post 2 unit of blood on 03/18/2025-hemoglobin better
Transfuse as needed
Urine culture negative. Okay to stop antibiotics per urology,stopped.
Continue Flomax
Urology following
for cysto today
# Mild hyponatremia-Resolved.
# Constipation-resolved
# Traumatic rhabdomyolysis with FELIZ secondary to fall
With treatment creatinine came down from 3-1, Creat up today
IVF, Hold Entresto
# Coronary disease with history of LAD stent June 2024
Recently Effient was changed to Plavix and Eliquis was started on 03/02/2025
Holding Plavix now, on aspirin
Continue Crestor
# Chronic HFpEF
Hold Entresto
Echo EF 50 to 55% no valvular disease
# Persistent A-fib-hold Eliquis secondary to hematuria
# Diabetes with hemoglobin A1c 7.3 on 03/02/2025
Takes NovoLog 70/30 16 units twice daily, Janumet 1 tablet p.o. daily, Accu-Cheks and sliding scale coverage as OP
Increased NovoLog 70/30 to 22 BID, but with creatinine running higher I will decrease the dose to 16 units for tonight
Holding OHA and Insulin this am
# Hypoalbuminemia
# DVT prophylaxis-holding Eliquis-continue SCDs
# Full code
D/W and updated 03/21/25.
Anticipated Discharge: > 48 hours
Subjective/Interval History
-
Date of Service: March 21, 2025
Objective Data
-
Labs:
Laboratory Results
03/21/25
06:29
WBC 6.5
Hgb 9.1 L
Hct 26.6 L
Plt Count 225
Sodium 131 L
Potassium 5.0
Chloride 98
Carbon Dioxide 25
BUN 48 H
Creatinine 1.5 H
Glucose 108 H
Calcium 7.8 L
Vital Signs:
Vital Signs
Temp Pulse Resp BP Pulse Ox
98.2 F 66 19 108/51 96
03/21/25 07:00 03/21/25 08:45 03/21/25 07:00 03/21/25 08:45 03/21/25 08:24
I&O
03/20/25 03/21/25 03/22/25
06:59 06:59 06:59
Intake Total 1140 / 1140 420 / 420
Output Total 850 / 850 500 / 500
Balance 290 / 290 -80 / -80
--- NOTE | 2025-03-21 15:32 | W.IMMPOSTOP ---
Surgical Immed Post Op Note
-
Primary Surgeon: Aron
Pre-op Diagnosis: Gross Hematuria; Possible Bladder Mass; Chronic Urinary Retention
Post-op Diagnosis: Hemorrhagic cystitis -- bladder tissues are fragile, friable; no discernible urothelial neoplasia; prostatic fossa suggests prior TURP
Procedure Performed: Cysto/clot evacuation/biopsies of bladder and prostatic urethra/fulguration of bleeding sites
Anesthesia Type: LMA
Specimen / Cultures: bladder and prostatic urethral tissues
Estimated Blood Loss: 11 ml
Complications: none
24 Fr 3-way Claire with NS CBI
Plan: Claire removal/voiding trial 03/22
[2025-03-21] MEDS: DILAUDID 0.25 MG IV ×2 (15:57→16:15)
[2025-03-21 15:59] LABS: Glucose - Point of Care 129 mg/dl (70-99)
[2025-03-21 18:05] LABS: Glucose - Point of Care 158 mg/dl (70-99)
[2025-03-21] MEDS: NSS 1000 IV (18:22)
[2025-03-21] MEDS: GLUCOPHAGE 1000 MG PO (18:24)
[2025-03-21] MEDS: CRESTOR 20 MG PO (18:24)
[2025-03-21] MEDS: JANUVIA 50 MG PO (18:24)
[2025-03-21] MEDS: NOVOLOG MIX 70/30 FLEXPEN 16 UNITS SC (18:25)
[2025-03-21] MEDS: FLOMAX 0.8 MG PO (19:38)
[2025-03-21] MEDS: MIRALAX PO (19:38)
[2025-03-21 22:11] LABS: Glucose - Point of Care 328 mg/dl (70-99)
[2025-03-22 03:05] VITALS: BP 101/47
[2025-03-22] MEDS: NSS 1000 IV (05:28)
[2025-03-22 06:00] VITALS: BMI 28.7
[2025-03-22 07:00] VITALS: BP 97/51
[2025-03-22 07:15] LABS: Glucose - Point of Care 170 mg/dl (70-99)
[2025-03-22] MEDS: COLACE 100 MG PO (08:13)
[2025-03-22] MEDS: GLUCOPHAGE 1000 MG PO ×2 (08:13→17:05)
[2025-03-22] MEDS: SENOKOT 17.2 MG PO (08:13)
[2025-03-22] MEDS: NOVOLOG MIX 70/30 FLEXPEN 16 UNITS SC (08:14)
[2025-03-22] MEDS: JANUVIA 50 MG PO ×2 (08:14→17:05)
[2025-03-22] MEDS: LOW STRENGTH ASPIRIN 81 MG PO (08:14)
[2025-03-22 08:40] LABS: Hematocrit 27.2 % (39.0-52.0); Hemoglobin 9.2 g/dL (13.0-18.0); Mean Corp Hgb Conc. 33.8 g/dL (33.0-37.0); Mean Corpuscular Hgb 28.2 pg (27.0-31.0); Mean Corpuscular Volume 83.4 fL (80.0-94.0); Mean Platelet Volume 9.7 fL (7.4-10.4); Platelet Count 217 10^3/uL (130-400); Red Blood Cell Count 3.26 10^6/uL (4.70-6.10); Red Cell Dist. Width 14.6 % (11.5-14.5); White Blood Cell Count 5.9 10^3/uL (4.8-10.8)
[2025-03-22 10:06] LABS: Blood Urea Nitrogen 39 mg/dl (9-20); Calcium 7.5 mg/dl (8.4-10.2); Carbon Dioxide 23 mmol/L (22-30); Chloride 101 mmol/L (98-107); Estimated Creatinine Clearance 58 ml/min; Glucose 176 mg/dl (70-99); Potassium 4.8 mmol/L (3.5-5.1); Sodium 132 mmol/L (135-145); eGFR > 60.00
--- NOTE | 2025-03-22 10:21 | W.PN.URO.CBU ---
Today's Communication / Plan
-
voiding trial in progress
Assessment / Plan
-
Patient Diagnosis:
Hemorrhagic Cystitis -- etiology is unclear
Gross hematuria -- arrested
Urinary retention
Diagnosis
-
Date of Service: March 22, 2025
-
Post Op Day: 1 s/p cysto, clot evacuation. biopsies of bladder and prostatic urethra, fulguration of bleeding
Patient Diagnosis:
Hemorrhagic Cystitis -- etiology is unclear
Gross hematuria
Chronic Claire/retention
CAUTI
Subjective
-
feels better
Claire out -- yet to feel urge to void
Objective
-
Vital Signs
Temp Pulse Resp BP Pulse Ox
98.1 F 69 16 97/51 95
03/22/25 07:00 03/22/25 07:00 03/22/25 07:00 03/22/25 07:00 03/22/25 07:00
Intake and Output
03/21/25 03/22/25 03/23/25
06:59 06:59 06:59
Intake Total 420 / 420 1860 / 1860
Output Total 500 / 500 1000 / 1000
Balance -80 / -80 860 / 860
Intake:
Oral fluids 420 / 420 960 / 960
IV fluids (Total) 900 / 900
Output:
Urine, Claire 500 / 500
True Urine Output from CBI 1000 / 1000
Laboratory Results
03/22/25 06:26
03/22/25 06:26
Physical Exam
-
Abdomen - soft, non-tender, positive bowel sounds, no distention
[2025-03-22 11:00] VITALS: BP 110/46
[2025-03-22 12:11] LABS: Glucose - Point of Care 227 mg/dl (70-99)
[2025-03-22 15:00] VITALS: BP 113/44
--- NOTE | 2025-03-22 15:01 | W.PN.HOSP.TC ---
Today's Communication/Plan
-
DC IVF
Increase insulin
Restart Entresto
Discharge planning per urology
Assessment / Plan
Assessment / Plan
80-year-old with hematuria and clots
CVS: S1-S2 irregular
Chest: CTA B/L
Abdomen: Soft, mild tenderness suprapubic, Bowel sounds present
Extremities: No edema
# CAUTI and new gross hematuria
Cavity with bacteremia blood cultures with Klebsiella on 03/02/2025. Treated with IV cefepime and then Augmentin for 14 days to be completed on 03/18/2025.
History of enlarged prostate with urinary retention and chronic Claire catheter placed by Dr. Mayes at [facility]
Hematuria exacerbated by Plavix and Eliquis.Last dose was 03/15/2025
Hold anticoagulation and antiplatelets. Okay to continue aspirin per urology
Acute blood loss anemia status post 2 unit of blood on 03/18/2025-hemoglobin better
Urine culture negative. Okay to stop antibiotics per urology,stopped.
Continue Flomax
Cystoscopy 03/21/2025--clot evacuation biopsies of bladder and prostatic urethra and fulguration of bleeding sites.
Claire catheter out
# Mild hyponatremia-Resolved.
# Constipation-resolved
# Traumatic rhabdomyolysis with FELIZ secondary to fall
Creatinine improved
Stop IV fluids. Resume Entresto
# Coronary disease with history of LAD stent June 2024
Recently Effient was changed to Plavix and Eliquis was started on 03/02/2025
Holding Plavix now, on aspirin
Continue Crestor
# Chronic HFpEF
Resume Entresto
Echo EF 50 to 55% no valvular disease
# Persistent A-fib-hold Eliquis secondary to hematuria
# Diabetes with hemoglobin A1c 7.3 on 03/02/2025
Takes NovoLog 70/30 16 units twice daily, Janumet 1 tablet p.o. daily, Accu-Cheks and sliding scale coverage as OP
Increased NovoLog 70/30 to 22 BID
# Hypoalbuminemia
# DVT prophylaxis-holding Eliquis-continue SCDs
# Full code
Anticipated Discharge: Within 24 hours
Subjective/Interval History
-
Date of Service: March 22, 2025
Objective Data
-
Labs:
Laboratory Results
03/22/25
06:26
WBC 5.9
Hgb 9.2 L
Hct 27.2 L
Plt Count 217
Sodium 132 L
Potassium 4.8
Chloride 101
Carbon Dioxide 23
BUN 39 H
Creatinine 1.1
Glucose 176 H
Calcium 7.5 L
Vital Signs:
Vital Signs
Temp Pulse Resp BP Pulse Ox
98.0 F 65 18 110/46 94
03/22/25 11:00 03/22/25 11:00 03/22/25 11:00 03/22/25 11:00 03/22/25 11:00
I&O
03/21/25 03/22/25 03/23/25
06:59 06:59 06:59
Intake Total 420 / 420 1860 / 1860
Output Total 500 / 500 1000 / 1000
Balance -80 / -80 860 / 860
[2025-03-22 15:20] VITALS: BP 113/44; PULSE 61
[2025-03-22] MEDS: CRESTOR 20 MG PO (17:05)
[2025-03-22 17:06] LABS: Glucose - Point of Care 262 mg/dl (70-99)
[2025-03-22] MEDS: NOVOLOG MIX 70/30 FLEXPEN 22 UNITS SC (17:06)
[2025-03-22] MEDS: ENTRESTO 49 MG/51 MG 1 TAB PO (19:47)
[2025-03-22] MEDS: COLACE PO (19:50)
[2025-03-22] MEDS: SENOKOT PO (19:50)
[2025-03-22] MEDS: MIRALAX PO (19:51)
[2025-03-22] MEDS: FLOMAX 0.8 MG PO (19:51)
[2025-03-22 22:11] LABS: Glucose - Point of Care 116 mg/dl (70-99)
[2025-03-22 23:09] VITALS: BP 121/51
[2025-03-23 06:00] VITALS: BMI 27.7
[2025-03-23 07:00] VITALS: BP 107/52
[2025-03-23] MEDS: COLACE PO (07:50)
[2025-03-23] MEDS: JANUVIA 50 MG PO (07:50)
[2025-03-23] MEDS: GLUCOPHAGE 1000 MG PO (07:51)
[2025-03-23] MEDS: LOW STRENGTH ASPIRIN 81 MG PO (07:51)
[2025-03-23 07:54] LABS: Glucose - Point of Care 105 mg/dl (70-99)
[2025-03-23] MEDS: NOVOLOG MIX 70/30 FLEXPEN 22 UNITS SC (07:57)
[2025-03-23] MEDS: SENOKOT PO (07:59)
[2025-03-23] MEDS: ENTRESTO 49 MG/51 MG PO (08:01)
[2025-03-23 08:48] LABS: Hematocrit 26.9 % (39.0-52.0); Hemoglobin 9.4 g/dL (13.0-18.0); Mean Corp Hgb Conc. 34.9 g/dL (33.0-37.0); Mean Corpuscular Hgb 29.3 pg (27.0-31.0); Mean Corpuscular Volume 83.8 fL (80.0-94.0); Mean Platelet Volume 9.5 fL (7.4-10.4); Platelet Count 206 10^3/uL (130-400); Red Blood Cell Count 3.21 10^6/uL (4.70-6.10); Red Cell Dist. Width 14.5 % (11.5-14.5); White Blood Cell Count 6.9 10^3/uL (4.8-10.8)
[2025-03-23 09:09] LABS: Blood Urea Nitrogen 36 mg/dl (9-20); Calcium 7.7 mg/dl (8.4-10.2); Carbon Dioxide 23 mmol/L (22-30); Chloride 102 mmol/L (98-107); Estimated Creatinine Clearance 58 ml/min; Glucose 107 mg/dl (70-99); Potassium 4.7 mmol/L (3.5-5.1); Sodium 132 mmol/L (135-145); eGFR > 60.00
--- NOTE | 2025-03-23 10:25 | W.PN.URO.CBU ---
Today's Communication / Plan
-
fit for discharge urologically if PVR remains < 300 ml
Assessment / Plan
-
Patient Diagnosis:
Hemorrhagic Cystitis -- etiology is unclear
Gross hematuria -- arrested
Urinary retention -- resolved
Diagnosis
-
Date of Service: March 23, 2025
-
Post Op Day: 2 s/p cysto, clot evacuation. biopsies of bladder and prostatic urethra, fulguration of bleeding
Patient Diagnosis:
Hemorrhagic Cystitis -- etiology is unclear
Gross hematuria
Chronic Claire/retention
CAUTI
Subjective
-
patient reports that he is voiding, albeit incontinently
results of bladder scan/PVR are not obvious to me
Objective
-
Vital Signs
Temp Pulse Resp BP Pulse Ox
98.8 F 71 17 107/52 94
03/23/25 07:00 03/23/25 08:01 03/23/25 07:00 03/23/25 08:01 03/23/25 07:00
Intake and Output
03/22/25 03/23/25 03/24/25
06:59 06:59 06:59
Intake Total 1860 / 1860 900 / 900
Output Total 1000 / 1000
Balance 860 / 860 900 / 900
Intake:
Oral fluids 960 / 960 900 / 900
IV fluids (Total) 900 / 900
Output:
True Urine Output from CBI 1000 / 1000
Other:
How many times incontinent 1
SATURATED amount urine
Laboratory Results
03/23/25 08:00
03/23/25 08:00
Physical Exam
-
General - well developed, well nourished, no acute distress
Abdomen - soft, non-tender, positive bowel sounds, no distention
[2025-03-23 11:49] LABS: Glucose - Point of Care 116 mg/dl (70-99)
[2025-03-23 15:25] VITALS: BP 106/45
--- NOTE | 2025-03-23 15:26 | W.PN.HOSP.TC ---
Today's Communication/Plan
-
Discharge
Assessment / Plan
Assessment / Plan
80-year-old with hematuria and clots
CVS: S1-S2 irregular
Chest: CTA B/L
Abdomen: Soft, mild tenderness suprapubic, Bowel sounds present
Extremities: No edema
# CAUTI and new gross hematuria
Cavity with bacteremia blood cultures with Klebsiella on 03/02/2025. Treated with IV cefepime and then Augmentin for 14 days to be completed on 03/18/2025.
History of enlarged prostate with urinary retention and chronic Claire catheter placed by Dr. Mayes at [facility]
Hematuria exacerbated by Plavix and Eliquis.Last dose was 03/15/2025
Hold anticoagulation and antiplatelets. Okay to continue aspirin per urology
Acute blood loss anemia status post 2 unit of blood on 03/18/2025-hemoglobin better
Urine culture negative. Okay to stop antibiotics per urology,stopped.
Continue Flomax
Cystoscopy 03/21/2025--clot evacuation biopsies of bladder and prostatic urethra and fulguration of bleeding sites.
Claire catheter to be replaced today prior to discharge from urology
# Mild hyponatremia-Resolved.
# Constipation-resolved
# Traumatic rhabdomyolysis with FELIZ secondary to fall
Creatinine improved
# Coronary disease with history of LAD stent June 2024
Recently Effient was changed to Plavix and Eliquis was started on 03/02/2025
Restart Plavix and Eliquis Wednesday per discussion with Dr. Sharp
Continue Crestor
# Chronic HFpEF
Continue Entresto
Echo EF 50 to 55% no valvular disease
# Persistent M-jue-jlixhwy Eliquis on Wednesday per discussion with urology
# Diabetes with hemoglobin A1c 7.3 on 03/02/2025
Takes NovoLog 70/30 16 units twice daily, Janumet 1 tablet p.o. daily, Accu-Cheks and sliding scale coverage as OP
Increased NovoLog 70/30 to 22 BID
# Hypoalbuminemia
# DVT prophylaxis-holding Eliquis-continue SCDs
# Full code
Discussed with urology
Discussed with nursing
Discussed with and updated.
More than 30 minutes spent in discharge including
Final examination of the patient
Summarizing hospital stay
Instructions for continuing care to all relevant caregivers
Preparation of discharge records, prescriptions, and referral forms
Total time spent (in minutes): 37 min
Anticipated Discharge: Today
Subjective/Interval History
-
Date of Service: March 23, 2025
Objective Data
-
Labs:
Laboratory Results
03/23/25
08:00
WBC 6.9
Hgb 9.4 L
Hct 26.9 L
Plt Count 206
Sodium 132 L
Potassium 4.7
Chloride 102
Carbon Dioxide 23
BUN 36 H
Creatinine 1.1
Glucose 107 H
Calcium 7.7 L
Vital Signs:
Vital Signs
Temp Pulse Resp BP Pulse Ox
97.5 F 62 20 106/45 100
03/23/25 15:25 03/23/25 15:25 03/23/25 15:25 03/23/25 15:25 03/23/25 15:25
I&O
03/22/25 03/23/25 03/24/25
06:59 06:59 06:59
Intake Total 1860 / 1860 900 / 900
Output Total 1000 / 1000
Balance 860 / 860 900 / 900
--- NOTE | 2025-03-23 15:36 | W.DS.TRANS ---
Addendum entered and electronically signed by Seth Jacobs MD 03/23/25 15:47:
Dictation- [id number]
Original Note:
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
-
Discharge Instructions:
Discharge Diagnosis/Procedures Hematuria
Rhabdomyolysis
Coronary disease with history of LAD stent
June 2024
Chronic HFpEF
A-fib
Diabetes
Diet Diabetic, Carb Controlled,2 Gram Sodium,Restrict
fluids to 64 oz
Activity As tolerated,With assistance
Driving Restrictions As prior to admission
Other Services VN
Specialty Instructions Weigh Daily
Instructions:
Stand-Alone Forms:
Changes to Home Medications: Yes
Discharge Medications:
DC Medications w/original date entered in [employer]
apixaban 5 mg tablet (Eliquis) 5 mg PO BID anticoagulation 30 days #60 tabs 03/06/25
clopidogrel 75 mg tablet 75 mg PO DAILY Blood clot prevention/tx 30 days #30 tabs 03/06/25
sitagliptin phosphate 50 mg-metformin 1,000 mg tablet (Janumet) 1 tab PO BID Diabetes #0 tabs 03/06/25
omega 8-grk-snz-fish oil 60 mg-90 mg-500 mg capsule (Fish Oil) 1 cap PO DAILY Supplement 03/15/25
rosuvastatin 20 mg tablet 20 mg PO QPM hyperlipidemia 03/15/25
tamsulosin 0.4 mg capsule 0.8 mg PO HS BPH 03/15/25
therapeutic multivitamin 1 tab PO DAILY Supplement 03/15/25
aspirin 81 mg chewable tablet 81 mg PO DAILY Blood clot prevention/tx #2 tabs 03/23/25
docusate sodium 100 mg capsule 100 mg PO BID Constipation #0 caps 03/23/25
insulin aspar prot-insulin aspart 100 unit/mL (70-30) subcutaneous pen (Novolog Mix 70-30FlexPen U-100) 22 unit (0.22 mL) SC BID Diabetes #1 mL 03/23/25
polyethylene glycol 3350 17 gram oral powder packet 17 g PO HS Constipation #0 ea 03/23/25
sacubitril 49 mg-valsartan 51 mg tablet (Entresto) 1 tab PO BID Heart Failure 30 days #30 tabs 03/23/25
Home Medication Changes
MiraLAX, Colace are new
Insulin dose increased
Aspirin added for 2 days
Pending Results: Yes
Additional Pending Results:
Biopsy results
--- NOTE | 2025-03-23 16:07 | CM ---
Patient stable for d/c today. Current w/ [facility]
Met w/ patient bedside w/ spouse, agreeable to d/c. IMM verbally reviewed, patient given copy, copy placed on chart
Informed [facility] liaison of patient's d/c today. Will d/c w/ [facility]
Plan: Home; [facility] w/ [facility]
== END 2025-03-23 16:57 | disposition home health service (06) | DRG 713 ==
LOC: 4 WEST ACU 14:57
PROVIDERS: Clinical Nurse Specialist Family Health; Physician Assistant Medical; ADMITTING PHYSICIAN Hospitalist; ATTENDING PHYSICIAN Hospitalist; CONSULT PHYSICIAN Specialist; EMERGENCY PHYSICIAN Emergency Medicine; FAMILY PHYSICIAN General Practice
PROC: 30233N1 Transfusion of Nonautologous Red Blood Cells into Peripheral Vein, Percutaneous Approach (ICD-10-PCS; 2025-03-18)
PROC: 0TCB8ZZ Extirpation of Matter from Bladder, Via Natural or Artificial Opening Endoscopic (ICD-10-PCS; 2025-03-21)
PROC: 0TBB8ZX Excision of Bladder, Via Natural or Artificial Opening Endoscopic, Diagnostic (ICD-10-PCS; 2025-03-21)
PROC: 0VB08ZZ Excision of Prostate, Via Natural or Artificial Opening Endoscopic (ICD-10-PCS; 2025-03-21)
DX: N41.3 Prostatocystitis (principal); E87.1 Hypo-osmolality and hyponatremia; M62.82 Rhabdomyolysis; I50.32 Chronic diastolic (congestive) heart failure; N17.9 Acute kidney failure, unspecified; R31.0 Gross hematuria; Z95.5 Presence of coronary angioplasty implant and graft; I48.0 Paroxysmal atrial fibrillation; E11.9 Type 2 diabetes mellitus without complications; I25.10 Atherosclerotic heart disease of native coronary artery without angina pectoris; E66.9 Obesity, unspecified; Z68.27 Body mass index [BMI] 27.0-27.9, adult; E88.09 Other disorders of plasma-protein metabolism, not elsewhere classified; N40.1 Benign prostatic hyperplasia with lower urinary tract symptoms; R33.8 Other retention of urine; Z79.01 Long term (current) use of anticoagulants; Z79.4 Long term (current) use of insulin; Z80.0 Family history of malignant neoplasm of digestive organs; Z80.8 Family history of malignant neoplasm of other organs or systems
CPT/HCPCS: 88305; 88307; 51702; 80048; 80053; 81003; 81015; 82962; 85025; 85027; 86850; 86900; 86901; 86920; 87086; 97116; 97162; 97167; 97530; 97535; 99285; P9016

== ENCOUNTER 2025-05-29 15:24 | Inpatient (IN) | payer OTHER, SELFPAY ==
[2025-05-29 10:28] VITALS: BP 114/64
[2025-05-29 10:28] LABS: Glucose - Point of Care 365 mg/dl (70-99)
[2025-05-29 11:10] VITALS: BMI 27.4
[2025-05-29 11:17] LABS: Hematocrit 32.7 % (39.0-52.0); Hemoglobin 11.4 g/dL (13.0-18.0); Mean Corp Hgb Conc. 34.9 g/dL (33.0-37.0); Mean Corpuscular Volume 80.3 fL (80.0-94.0); Nucleated Red Blood Cells % 0 % (-); Platelet Count 256 10^3/uL (130-400); Red Cell Dist. Width 14.6 % (11.5-14.5); Venous Blood Gas B.E. -2.8 mmol/L (-4 to +4); Venous Blood Gas O2 Sat % 67.7 %
[2025-05-29 11:43] LABS: ALT (SGPT) 19 U/L (0-50); AST (SGOT) 14 U/L (17-59); Albumin 3.3 g/dl (3.5-5.0); Alkaline Phosphatase 72 U/L (38-126); Blood Urea Nitrogen 52 mg/dl (9-20); Calcium 7.9 mg/dl (8.4-10.2); Carbon Dioxide 21 mmol/L (22-30); Chloride 98 mmol/L (98-107); Estimated Creatinine Clearance 37 ml/min; Glucose 306 mg/dl (70-99); Potassium 4.5 mmol/L (3.5-5.1); Sodium 130 mmol/L (135-145); Total Protein 6.8 g/dl (6.3-8.2); eGFR 40.00
[2025-05-29] MEDS: NSS 1000 IV ×2 (11:52→16:44)
[2025-05-29 12:25] LABS: Urine Character Cloudy (Clear)
[2025-05-29 12:41] LABS: Urine Squamous Cell 0-2 /LPF (Few)
[2025-05-29 12:42] LABS: Urine White Cell >100 /HPF (0-5)
[2025-05-29 13:26] LABS: Glucose - Point of Care 286 mg/dl (70-99)
--- NOTE | 2025-05-29 13:29 | ED.GENMED ---
History of Present Illness
General
Chief Complaint: Blood Sugar Problem
Source: patient and spouse
Exam Limitations: none
Time Seen by Provider: 05/29/25 11:18
Nursing documentation reviewed up to this point in time: agreed with
History of Present Illness
History of Present Illness:
Patient with history of insulin-dependent diabetes who self catheterizes twice daily, secondary to BPH and previous urinary retention, presents to ED secondary to 2-week history of persistently elevated blood sugar, associated with polydipsia and
polyuria, as well as recent blood work that revealed worsening kidney function. Patient denies fever or chills. Denies abdominal pain. Denies nausea, vomiting, or diarrhea. Denies recent illness. Denies recent change in medications or diet.
Past History
Past History
ED Past Medical History: CAD and IDDM
ED Past Surgical History: Cardiac
Social History
Tobacco: Non-smoker
Alcohol: None
Drug: None
Personal:
Living: with family
Review of Systems
Review of Systems
Allergies reviewed?: Yes
All Other Systems: ROS reviewed and negative except as documented in HPI and ROS
Constitutional: Reports no symptoms; Denies fever
Respiratory: Reports no symptoms
Cardiac: Reports no symptoms
ABD/GI: Reports no symptoms; Denies vomiting or diarrhea
: Reports no symptoms
Musculoskeletal: Reports no symptoms
Skin: Reports no symptoms
Neurological: Reports no symptoms
Endocrine: Reports polyuria and polydipsia
Phy Exam
Physical Exam
Physical Exam:
Physical Exam
General: no apparent distress, not acutely ill. afebrile
Head: nc/at. eomi
Neck: supple. no meningeal signs.
Heart: s1/s2 regular rate and rhythm
Lungs: no acute respiratory distress. clear bilaterally
Abdomen: normal bowel sounds. not tender.
Neuro: alert and oriented x 3. no focal neurological deficits
Skin: no rash
Psychiatric: well kept. interactive and cooperative
Extremities: no edema. no calf tenderness.
Course
Orders/Labs/Results
Orders:
Orders
05/29/25 11:05
B-Hydroxybutyrate Urgent
Complete Blood Count/With Diff Urgent
Comprehensive Metabolic Panel Urgent
Venous Blood Gas Urgent
%Oxygen/Room Air: RA
05/29/25 11:48
0.9% Sodium Chloride 1000 ml [Nss] 1,000 ml IV BOLUS
05/29/25 12:08
Urinalysis Reflex To Culture Urgent
Date Specimen was Collected: 05/29/25
Time Specimen was Collected: 11:49
Urine Microscopic Reflex Cult Urgent
Urine Culture Urgent
JUSTO Source: U
Specimen Description:
Date Specimen was Collected: 05/29/25
Time Specimen was Collected: 11:49
05/29/25 12:09
Straight cath- Treatment ONCE
05/29/25 13:28
Insulin Human Regular [Novolin R] 8 units SC NOW STA
05/29/25 13:29
CefTRIAXone [Rocephin] 1,000 mg IV NOW STA
05/29/25 14:56
Admit/Transfer Patient As Directed
Co-Sign Provider:
Level of Care: Inpatient admission
Assign to:: Medical/Surgical
Physician / Group: Harjit Villegas
Diagnosis: FELIZ, UTI, hyperglycemia
Reason for Hospitalization: FELIZ, UTI, hyperglycemia
Expected length of stay greater than two midnights?: Yes
ELOS- Estimated Length of Stay in days: 2
I certify the patient meets the requirements for IP care: Yes
PRN Pain Medication Management As Directed
May give lesser potent ordered pain med per pt: Yes
preference::
Protocol:: Medication orders for pain may be administered in a
manner that supports deferring to patient preference
when the pt is:
- Requesting an ordered lesser potent pain medication.
Least to most potent pain medications are defined
as: acetaminophen < NSAID < tramadol < opioids
(morphine, oxycodone, hydromorphone).
- Requesting a lesser dose of the same medication IF
ORDERED.
- Requesting a less intrusive route of administration
if both routes are prescribed by the provider (PO <
IV).
05/29/25 14:57
Code Status As Directed
Resuscitation Status: Full Code
05/29/25 Dinner
1800 calorie (15 carb) Diabetic
At Your Request: Full Participation
Does patient need a safe tray?: No
05/29/25 16:20
0.9% Sodium Chloride 1000 ml [Nss] 1,000 ml IV 80 mls/hr
Acetaminophen [Tylenol] 650 mg PO Q4HPRN PRN
Dextrose 50%-Water [Dextrose 50% Syringe] 12.5 grams IV [id number] PRN
Glucagon [GlucaGen] 1 mg IM PRN PRN
Heparin 5,000 units SC Q8
05/29/25 16:20
Activity As Directed
Activity Level: As Tolerated
Bedside Glucose Monitoring As Directed
Frequency: AC&HS
Additional Instructions:: Change to q6h if pt on TPN, tube feeding or not eating
Intake/ Output As Directed
Frequency: Per unit guidelines
Patient Education As Directed
Type: CHF folder
Comment: give on admission. Document in Interdisciplinary Education record
Sleep Apnea Assessment by RN As Directed
Comment:
Physician Instructions:
Vital Signs As Directed
Frequency: Per unit guidelines
Weight As Directed
Frequency: Daily
Type of Scale: Standing Scale
Comment: Daily morning weight. If unable to stand, use balanced bed scale.
Weight As Directed
Frequency: Once
Type of Scale: Standing Scale
Comment: Upon Admission. If unable to stand, use balanced bed scale.
Pulse Ox/cont/shift [RESP] Routine
Quantity: 1
Special Instructions: Daily pulse oximetry at rest. If greater than 92% at rest also obtain pulse oximetry
while ambulating as tolerated.
DX Deep Vein Thrombosis Video Routine
05/29/25 16:30
Insulin Aspart Corrective Mod [Novolog Flexpen-Moderate Resistance] See Protocol SC AC
Insulin Aspart [NOVOLOG vial] DOSE units SC AC
05/29/25 18:00
Rosuvastatin Calcium [Crestor] 20 mg PO QPM
05/29/25 22:00
Tamsulosin [Flomax] 0.8 mg PO HS
insulin glargine [Basaglar KwikPen U-100 Insulin] 22 unit SC HS
05/30/25 06:00
Basic Metabolic Panel IN AM
Glycohemoglobin (HgbA1c) IN AM
05/30/25 08:00
finasteride 1 mg PO DAILY
05/30/25 14:00
CefTRIAXone [Rocephin] 1,000 mg IV Q24H
Abnormal Lab Results
05/29/25 05/29/25 05/29/25
10:27 11:05 12:08
RBC 4.07 L 10^6/uL
(4.70-6.10)
Hgb 11.4 L g/dL
(13.0-18.0)
Hct 32.7 L %
(39.0-52.0)
RDW 14.6 H %
(11.5-14.5)
Absolute Monos (auto) 1.0 H 10^3/uL
(0.1-0.6)
Lymphocytes % 20.1 L %
(20.5-51.1)
Monocytes % 11.0 H %
(1.7-9.3)
Sodium 130 L mmol/L
(135-145)
Carbon Dioxide 21 L mmol/L
(22-30)
BUN 52 H mg/dl
(9-20)
Creatinine 1.7 H mg/dL
(0.7-1.3)
Glucose 306 H mg/dl
(70-99)
Calcium 7.9 L mg/dl
(8.4-10.2)
AST 14 L U/L
(17-59)
Albumin 3.3 L g/dl
(3.5-5.0)
Ur Occult Blood Reflex 4+ A
(Negative)
Leukocyte Esterase Rfl 3+ A
(Negative)
Urine WBC (Reflex) >100 A /HPF
(0-5)
Urine Bacteria (Reflex) Many A
(Negative)
Urine Glucose 4+ A
(Negative)
Urine Albumin (Reflex) 3+ A
(Neg - Trace)
B-Hydroxybutyrate 0.73 H mmol/L
(0.02-0.27)
POC Glucose 365 H mg/dl
(70-99)
05/29/25
13:25
RBC
Hgb
Hct
RDW
Absolute Monos (auto)
Lymphocytes %
Monocytes %
Sodium
Carbon Dioxide
BUN
Creatinine
Glucose
Calcium
AST
Albumin
Ur Occult Blood Reflex
Leukocyte Esterase Rfl
Urine WBC (Reflex)
Urine Bacteria (Reflex)
Urine Glucose
Urine Albumin (Reflex)
B-Hydroxybutyrate
POC Glucose 286 H mg/dl
(70-99)
05/29/25 11:05
05/29/25 11:05
Vital Signs
Initial and Last Documented VS:
Initial Vital Signs
Temp Pulse Resp BP Pulse Ox
97.4 F 87 16 114/64 98
05/29/25 10:28 05/29/25 10:28 05/29/25 10:28 05/29/25 10:28 05/29/25 10:28
Last Documented Vital Signs
Temp Pulse Resp BP Pulse Ox
97.3 F 73 21 110/43 98
05/29/25 16:23 05/29/25 16:23 05/29/25 16:23 05/29/25 16:23 05/29/25 16:23
MDM/Problems Addressed
MDM/Problems Addressed:
History and exam consistent with acute renal failure with hyperglycemia, likely secondary to UTI. As such, patient will be admitted for further evaluation and treatment, including IV antibiotics.
*Pulse Oximetry
SaO2: 100
Oxygen Mode of Delivery: Room air
Patient hypoxic: no
*Critical Care Note
Total Time (30-74mins, 75-104mins- exclusive of procedures): Not Applicable
ED Attending Note
-
Portions of this chart may have been created with voice recognition software.� Occasional wrong word or��sound alike� substitutions may have occurred due to the inherent limitations of voice recognition software.
Discharge Plan
Departure
Patient Disposition: Admit
Date of Disposition: 05/29/25
Time of Disposition: 13:33
Admit to: Med/Surg
Presentation/result/management discussed w/ accepting MD/DO: Hospitalist
Discharge Problem:
Acute renal failure (ARF), Acute hyperglycemia, Acute UTI
Interventions
Interventions:
*Risk Screen - Suicide Last Done: 05/29/25 10:30
*General Assessment Last Done: 05/29/25 11:11
*Neglect/Abuse Screening Last Done: 05/29/25 10:30
*ED- Fall Risk Assessment Last Done: 05/29/25 11:11
*ED COVID-19 Vaccine History Last Done: 05/29/25 11:11
*Nursing Disposition Last Done: 05/29/25 16:07
ED- Neurological Assessment Last Done: 05/29/25 11:11
Discharge Date and Time
Discharge Date/Time: 05/29/25 16:07
[2025-05-29] MEDS: NOVOLIN R 8 UNITS SC (13:37)
[2025-05-29] MEDS: ROCEPHIN 1000 MG IV (13:38)
[2025-05-29 14:00] VITALS: BP 121/62
--- NOTE | 2025-05-29 14:02 | HPS.HSE ---
Family Physician
-
Family Physician: Malcom Guevara
Chief Complaint
-
abnormal out patient labs
History of Present Illness
Patient is a 80-year old male with past medical history significant for ASCVD, DM-II, HFpEF, atrial fibrillation, obesity and BPH / urinary retention who presented to [facility] ED for evaluation of abnormal out patient labs. Patient states he had an
appointment this morning with primary care who recommended him come to ED for evaluation and treatment because of abnormal out patient labs on the . Patient with urinary retention and self catheterizes twice a day. He notes that his sugars have
been elevated for approximately 2 weeks. Patient denies any recent sick contact, fever, chills, cough, shortness of breath, chest pain, nausea, vomiting, constipation, diarrhea or urinary symptoms.
Medical History
Past Medical History
Past Medical History: Reports Other
Additional Past Medical History:
ASCVD
DM-II
HFpEF
Paroxysmal Atrial Fibrillation
Obesity
BPH / Urinary Retention
Past Surgical History: Reports Other
Additional Past Surgical History:
PTCA with Stents
Pilonidal Cyst
Social History
Tobacco: Non-smoker
Alcohol: None
Drug: None
Personal:
Living: With Family
Employment: Retired
Family History
Family History: Not pertinent
Allergies / Home Medications
Allergies reflects when Allergies were last updated in [facility].
Home Medications with original date entered in [facility]
Allergy/Medication List:
Allergies
Allergy/AdvReac Type Severity Reaction Status Date / Time
egg Allergy Hives Verified 05/29/25 10:59
tri Allergy Hives Uncoded 05/29/25 10:59
Home Medications
rosuvastatin 20 mg tablet 20 mg PO QPM hyperlipidemia 03/15/25
tamsulosin 0.4 mg capsule 0.8 mg PO HS BPH 03/15/25
sacubitril 49 mg-valsartan 51 mg tablet (Entresto) 1 tab PO BID Heart Failure 30 days #30 tabs 03/23/25
cinnamon bark 500 mg capsule (Cinnamon) 500 mg PO DAILY Supplement 05/29/25
empagliflozin 25 mg tablet (Jardiance) 25 mg PO DAILY Diabetes 05/29/25
finasteride 1 mg tablet 1 mg PO DAILY BPH 05/29/25
garlic 200 mg tablet 200 mg PO DAILY Supplement 05/29/25
insulin aspart U-100 100 unit/mL subcutaneous solution (Novolog U-100 Insulin aspart) 6 sliding scale dose SC AC Diabetes 05/29/25
insulin glargine 100 unit/mL (3 mL) subcutaneous pen (Basaglar KwikPen U-100 Insulin) 22 unit SC HS Diabetes 05/29/25
omega [id number]-fish oil 1,000 mg (120 mg-180 mg) capsule (Fish Oil) 1 cap PO DAILY Supplement 05/29/25
Review of Systems
-
History Source: Patient and Family ( Christiana and daughter Aida at bedside)
A 12 point ROS was completed and negative except as noted: Yes
Constitutional: Reports No Symptoms
EENT: Reports No Symptoms
Respiratory: Reports No Symptoms
Cardiac: Reports No Symptoms
Abdomen/GI: Reports No Symptoms
: Reports Other (self catheterizes BID )
Musculoskeletal: Reports No Symptoms and Edema (mild bilateral edema )
Skin: Reports No Symptoms
Neurological: Reports No Symptoms
Endocrine: Reports No Symptoms
Hematologic/Lymphatic: Reports No Symptoms
Psych: Reports No Symptoms
Physical Exam
Vital Signs
Vital Signs
Temp Pulse Resp BP Pulse Ox
97.4 F 60 20 114/64 100
05/29/25 10:28 05/29/25 12:18 05/29/25 12:18 05/29/25 10:28 05/29/25 13:29
Physical Exam
General: Well Developed, Well Nourished, No Apparent Distress and Obese
HEENT: NormoCephalic, Moist mucous membranes, Atraumatic, Nose Appears Normal and Ears Appear Normal
Respiratory: Clear
Cardiac: S1/S2, Regular Rhythm and Murmur
Breast: Deferred by me
GI: Soft, Non Tender, Non Distended and Normal Bowel Sounds; No Organomegaly
Rectal: Deferred by Provider
Genito-urinary: Deferred by me
Musculoskeletal: No Clubbing, No Cyanosis and No Edema
Skin: IV/Catheter Site
Neuro: Awake, Alert, AO x 3 and Nonfocal/grossly intact
Psych: Calm and Intact Judgment/Insight
Laboratory Results
-
05/29/25 11:05
05/29/25 11:05
Laboratory Results
Total Bilirubin 0.5 mg/dl (0.2-1.3) 05/29/25 11:05
AST 14 U/L (17-59) L 05/29/25 11:05
ALT 19 U/L (0-50) 05/29/25 11:05
Alkaline Phosphatase 72 U/L (38-126) 05/29/25 11:05
Data Reviewed
-
Lab Data: Labs Reviewed by me (Na+ 130, BUN 52, Creat 1.7, est CrCl 37, eGFR 40.00, glucose 306, Ca+ 7.9 (corrected to 8.0), anion gap 11.0)
Impression/Plan
-
IMPRESSION/PLAN:
#hyperglycemia likely 2/2 urinary tract infection
self catheterizes BID
Na+ 130, BUN 52, Creat 1.7, est CrCl 37, eGFR 40.00, glucose 306, Ca+ 7.9 (corrected to 8.0), anion gap 11.0
UA: indicating UTI
Urine Cx: pending
- Admit to med/surg
- IV ceftriaxone
- supportive care
#acute kidney injury
BUN 52, Creat 1.7, est CrCl 37, eGFR 40.00
- philippe IVF
- monitor BMP
#ASCVD
- continue rosuvastatin
#DM-II
- AccuCheck AC & HS
- SSI
- Hold Jardiance in setting of FELIZ
- continue insulin glargine
#HFpEF
ECHO (03/05/2025): Normal biventricular size and systolic function without regional wall motion abnormality. Estimated LVEF 50-55%.
No significant valve disease.
- daily weights
- I & Os
- hold Entresto in setting on FELIZ
#Obesity
- affects all aspects of care
- encourage balanced diet and exercise to promote weight loss
#BPH / Urinary Retention
self catheterizes BID
- continue tamsulosin and finasteride
#Paroxysmal Atrial Fibrillation
Code status: full code
DVT prophylaxis: heparin sq
--- NOTE | 2025-05-29 14:47 | W.PN.UPDATE ---
Update Note
Progress Note Update
This is an addendum to the H&P written by Kerry Morrell on 05/29/2025. Patient seen and examined independently with EDUCATIONAL AID.
80-year-old male past medical history of CAD with LAD stent, chronic HFpEF, persistent atrial fibrillation on Eliquis, diabetes, BPH self catheterizes, history of catheterization associated UTIs, hypercholesteremia, here for elevated blood sugars
for the past 2 weeks and blood work showing worsening kidney function. Has polyuria and cloudy urine.
No symptoms.
Labs show creatinine 1.7. Blood sugar 306. Sodium of 130 which is chronic.
Urinalysis consistent with urinary tract infection.
Patient with urinary tract infection, as well as FELIZ, and hyperglycemia possibly for infection. Check urine culture, IV fluids, ceftriaxone. Hold nephrotoxic medications including Jardiance, Entresto.
Check hemoglobin A1c. Continue 22 units of Lantus. Moderate insulin sliding scale.
--- NOTE | 2025-05-29 16:00 | CM ---
CM reviewed chart and met with pt bedside in ED. Lives with his , multistory home, [address] then 13 steps to main living area.
BR/BA on main living area. Independent in ADLs, personal care and ambulation. Uses cane, also has RW. Still drives.
caths him twice daily, hx BPH and urinary retention.
Was receiving PT[facility]OT from [facility], plan had been to transition to OP PT/OT.
PCP: Malcom Guevara
Pharmacy: [facility]
Discharge plan: CM will continue to follow for discharge planning
[2025-05-29 16:23] VITALS: BP 110/43
[2025-05-29 16:24] VITALS: BMI 27.2
[2025-05-29] MEDS: HEPARIN 5000 UNITS SC ×2 (16:46→23:13)
[2025-05-29 16:51] LABS: Glucose - Point of Care 286 mg/dl (70-99)
[2025-05-29] MEDS: NOVOLOG FLEXPEN-MODERATE RESISTANCE 5 UNITS SC (17:41)
[2025-05-29] MEDS: CRESTOR 20 MG PO (17:43)
[2025-05-29] MEDS: LANTUS 0.22 UNITS SC (20:13)
[2025-05-29] MEDS: FLOMAX 0.8 MG PO (20:14)
[2025-05-29 20:18] LABS: Glucose - Point of Care 282 mg/dl (70-99)
[2025-05-29 23:34] VITALS: BP 117/45
[2025-05-30] MEDS: NSS 1000 IV ×2 (04:26→16:30)
[2025-05-30 06:00] VITALS: BMI 26.9
[2025-05-30 07:53] LABS: Blood Urea Nitrogen 47 mg/dl (9-20); Calcium 8.3 mg/dl (8.4-10.2); Carbon Dioxide 22 mmol/L (22-30); Chloride 109 mmol/L (98-107); Estimated Creatinine Clearance 42 ml/min; Glucose 204 mg/dl (70-99); Potassium 5.1 mmol/L (3.5-5.1); Sodium 135 mmol/L (135-145); eGFR 46.48
[2025-05-30 08:00] VITALS: BP 124/61
[2025-05-30 08:04] LABS: Glucose - Point of Care 197 mg/dl (70-99)
[2025-05-30 08:10] LABS: Glycohemoglobin (HgbA1c) 11.0 % (4.0-5.6)
[2025-05-30] MEDS: DESENEX/MITRAZOL/ZEASORB 1 APPLIC TOPICAL ×2 (08:10→22:08)
[2025-05-30] MEDS: NOVOLOG FLEXPEN-MODERATE RESISTANCE 1 UNITS SC (08:11)
[2025-05-30] MEDS: HEPARIN 5000 UNITS SC ×2 (08:12→16:29)
[2025-05-30] MEDS: NOVOLOG FLEXPEN 6 UNITS SC ×2 (08:12→12:41)
--- NOTE | 2025-05-30 12:02 | W.PN.HOSP.TC ---
Addendum entered and electronically signed by Jason Pandya MD 05/30/25 15:06:
Home medication list was reviewed once again and it seems patient is off anticoagulation and antiplatelet agents.
Original Note:
Today's Communication/Plan
-
Hold Entresto and Jardiance for now
IV antibiotics
IVF for now
await culture data
Assessment / Plan
Assessment / Plan
# Suspected urinary tract infection
#BPH / Urinary Retention
self catheterizes BID
continue tamsulosin and finasteride
Follows with Dr. Prasad as outpatient
Follow-up on the urine culture data
Continue with antibiotic
Continue with IV fluids in the interim
#acute kidney injury
#Mild hyponatremia likely secondary pseudohyponatremia in setting of hyperglycemia
Continue with IV fluids
Creatinine mild improvement
Continue to trend
# CAD status post TRACE to LAD
continue rosuvastatin
#DM-II uncontrolled
AccuCheck AC & HS
SSI. A1c was found to be elevated 11.
Hold Jardiance in setting of FELIZ
continue insulin glargine 22 units nightly and NovoLog 6 units AC. May need to further increase and adjust as needed.
Diabetic PUTTY AND PATCH WORKER consulted
# Chronic HFpEF
ECHO (03/05/2025): Normal biventricular size and systolic function without regional wall motion abnormality. Estimated LVEF 50-55%.No significant valve disease.
daily weights
I & Os
hold Entresto in setting on FELIZ
#Obesity
affects all aspects of care
encourage balanced diet and exercise to promote weight loss
#Paroxysmal Atrial Fibrillation
Not on any rate control agent
Code status: full code
DVT prophylaxis: heparin sq
Anticipated Discharge: > 48 hours
Subjective/Interval History
-
Date of Service: May 30, 2025
Patient denies any dysuria
States his sugars have been running persistently elevated at home
Objective Data
-
Labs:
Laboratory Results
05/30/25
07:14
Sodium 135
Potassium 5.1
Chloride 109 H
Carbon Dioxide 22
BUN 47 H
Creatinine 1.5 H
Glucose 204 H
Calcium 8.3 L
Vital Signs:
Vital Signs
Temp Pulse Resp BP Pulse Ox
97.6 F 84 16 124/61 97
05/30/25 08:00 05/30/25 08:00 05/30/25 08:00 05/30/25 08:00 05/30/25 08:00
I&O
05/29/25 05/30/25 05/31/25
06:59 06:59 06:59
Intake Total 1080 / 1080
Output Total 600 / 600
Balance 480 / 480
Physical Exam
-
General: Well Developed, Well Nourished and No Apparent Distress
HEENT: Normocephalic, Atraumatic and Moist Mucous Membranes
Respiratory: Clear to Auscultation
Cardiac: S1/S2
GI: Soft, Nontender, Nondistended and Normal Bowel Sounds
Skin: Warm and Dry
Neuro: Awake, Alert, Oriented and AO x 3
Psych: Calm
Data Reviewed
-
Total Time Spent with Patient (in minutes): 55
[2025-05-30 12:32] LABS: Glucose - Point of Care 359 mg/dl (70-99)
[2025-05-30] MEDS: NOVOLOG FLEXPEN-LOW RESISTANCE 5 UNITS SC (12:42)
--- NOTE | 2025-05-30 13:07 | PN.DE.MGMTRT ---
Insulin Management
- -
05/30/2025 Diabetes Management Consult
Patient admitted 05/29 with blood sugar problem, glucose 365. PMH CAD, diabetes, HFpEF, afib, obesity, BPR - with urinary retention - patient self caths BID. Prior to admission was taking Jardiance 25 mg daily, Basaglar 18 units @ HS and 6 units
novolog AC. A1C is 11%, cr 1.5, eGFR 46.48.
Patient is awake alert and oriented, able to discuss diabetes care. Had 1 appointment with CUSTOMER SUPPORT MANAGER at [facility] to initiate diabetes care but that appointment had to be cancelled. CUSTOMER SUPPORT MANAGER did adjust insulin over the phone. Has had
diabetes ~ 6 years. Uses the Fifi + CGM.
Received 22 units lantus @ hs last evening.
Fasting glucose today 197. Will increase hs lantus to 25 units. Received 6 units novolog + 1 corrective, pre lunch glucose 359. Dr. Pandya has increase AC novolog to 10 units.
Discussed with nurse.
Will follow
Diabetes History
- -
Type of Diabetes: 2 requiring insulin
Pre-Admission Diabetes Regimen
05/30/25
07:14
Creatinine 1.5 H
Lab Results
Hemoglobin A1c 11.0 % (4.0-5.6) H 05/30/25 07:14
Insulin Pump Settings
IP Diabetes Regimen
05/29/25 05/29/25 05/29/25
13:25 16:50 20:17
Glucose
POC Glucose 286 H 286 H 282 H
05/30/25 05/30/25 05/30/25
07:14 08:02 12:29
Glucose 204 H
POC Glucose 197 H 359 H
Patient Education
[2025-05-30 14:01] VITALS: BP 122/59; PULSE 79
[2025-05-30] MEDS: STERILE WATER FOR INJECTION 10 ML IV (14:15)
[2025-05-30] MEDS: ROCEPHIN 1000 MG IV (14:16)
[2025-05-30 16:00] VITALS: BP 125/60
[2025-05-30 16:28] LABS: Glucose - Point of Care 255 mg/dl (70-99)
[2025-05-30] MEDS: CRESTOR 20 MG PO (16:29)
[2025-05-30] MEDS: NOVOLOG FLEXPEN 10 UNITS SC (16:31)
[2025-05-30] MEDS: NOVOLOG FLEXPEN-LOW RESISTANCE 3 UNITS SC (16:31)
[2025-05-30 21:25] LABS: Glucose - Point of Care 134 mg/dl (70-99)
[2025-05-30] MEDS: FLOMAX 0.8 MG PO (22:09)
[2025-05-30] MEDS: LANTUS 0.25 UNITS SC (22:09)
[2025-05-30 23:35] VITALS: BP 118/60
[2025-05-31] MEDS: HEPARIN SC (00:40)
[2025-05-31] MEDS: NSS 1000 IV ×2 (04:38→16:44)
[2025-05-31 05:37] VITALS: BMI 27.4
[2025-05-31 07:20] LABS: Glucose - Point of Care 190 mg/dl (70-99)
[2025-05-31] MEDS: NOVOLOG FLEXPEN 10 UNITS SC ×3 (07:39→16:38)
[2025-05-31] MEDS: NOVOLOG FLEXPEN-LOW RESISTANCE 1 UNITS SC ×2 (07:40→16:38)
[2025-05-31] MEDS: HEPARIN 5000 UNITS SC ×3 (07:40→23:07)
[2025-05-31] MEDS: DESENEX/MITRAZOL/ZEASORB 1 APPLIC TOPICAL ×2 (07:41→20:14)
[2025-05-31 07:53] VITALS: BP 119/55
[2025-05-31 08:19] LABS: Blood Urea Nitrogen 43 mg/dl (9-20); Calcium 8.0 mg/dl (8.4-10.2); Carbon Dioxide 21 mmol/L (22-30); Chloride 109 mmol/L (98-107); Estimated Creatinine Clearance 45 ml/min; Glucose 178 mg/dl (70-99); Potassium 5.1 mmol/L (3.5-5.1); Sodium 135 mmol/L (135-145); eGFR 50.49
[2025-05-31 11:15] LABS: Glucose - Point of Care 252 mg/dl (70-99)
[2025-05-31] MEDS: FARXIGA 10 MG PO (11:34)
[2025-05-31] MEDS: NOVOLOG FLEXPEN-LOW RESISTANCE 3 UNITS SC (11:34)
--- NOTE | 2025-05-31 11:45 | W.PN.HOSP.TC ---
Today's Communication/Plan
-
Stop IV fluid later today
continue with antibiotic
Trend creatinine
Monitor POC
Assessment / Plan
Assessment / Plan
# Urinary tract infection
#BPH / Urinary Retention
self catheterizes BID
continue tamsulosin and finasteride
Follows with Dr. Prasad as outpatient
Urine culture with Klebsiella lactobacillus. Chairez sensitivity noted.
Continue with antibiotic ceftriaxone and switch to p.o. on discharge
Continue with IV fluids in the interim
#acute kidney injury likely combination of episode of hypertension, urinary tract infection, uncontrolled diabetes
#Mild hyponatremia likely secondary pseudohyponatremia in setting of hyperglycemia
Continue with IV fluids
Creatinine mild improvement
Continue to trend
# CAD status post TRACE to LAD
continue rosuvastatin
#DM-II uncontrolled
AccuCheck AC & HS
SSI. A1c was found to be elevated 11.
Hold Jardiance in setting of FELIZ
Glargine was increased to 28 units nightly. NovoLog was increased to 10 units AC.
Diabetic IMMUNOPATHOLOGIST consulted
POC AM 190
# Chronic HFpEF
ECHO (03/05/2025): Normal biventricular size and systolic function without regional wall motion abnormality. Estimated LVEF 50-55%.No significant valve disease.
daily weights
I & Os
hold Entresto in setting on FELIZ
#Obesity
affects all aspects of care
encourage balanced diet and exercise to promote weight loss
#Paroxysmal Atrial Fibrillation
Not on any rate control agent
Not on any anticoagulation or antiplatelet agents
Per patient and family patient was taken off by his primary sandwich wrapper with a history of bleeding
Code status: full code
DVT prophylaxis: heparin sq
Discussed with patient daughter at bedside in detail. Answered all questions to her satisfaction.
Anticipated Discharge: Within 24 hours
Subjective/Interval History
-
Date of Service: May 31, 2025
no complaints
poc improving
toleraing diet
Objective Data
-
Labs:
Laboratory Results
05/31/25
06:10
Sodium 135
Potassium 5.1
Chloride 109 H
Carbon Dioxide 21 L
BUN 43 H
Creatinine 1.4 H
Glucose 178 H
Calcium 8.0 L
Vital Signs:
Vital Signs
Temp Pulse Resp BP Pulse Ox
98.1 F 69 17 119/55 96
05/31/25 07:53 05/31/25 07:53 05/31/25 07:53 05/31/25 07:53 05/31/25 08:00
I&O
05/30/25 05/31/25 06/01/25
06:59 06:59 06:59
Intake Total 1080 / 1080 1320 / 1320
Output Total 600 / 600 885 / 885 565 / 565
Balance 480 / 480 435 / 435 -565 / -565
Physical Exam
-
General: Well Developed, Well Nourished and No Apparent Distress
HEENT: Normocephalic, Atraumatic and Moist Mucous Membranes
Respiratory: Clear to Auscultation
Cardiac: S1/S2
GI: Soft, Nontender, Nondistended and Normal Bowel Sounds
Skin: Warm and Dry
Neuro: Awake, Alert, Oriented and AO x 3
Psych: Calm
Data Reviewed
-
Total Time Spent with Patient (in minutes): 55
--- NOTE | 2025-05-31 12:23 | CM ---
manager process improvement reviewed patient's chart and met with patient this am, and patient to return to home with [facility] when stable.
Plan; Home with spouse and [facility] when stable.
[2025-05-31] MEDS: ROCEPHIN 1000 MG IV (13:31)
[2025-05-31] MEDS: STERILE WATER FOR INJECTION 10 ML IV (13:31)
[2025-05-31 15:17] VITALS: BP 129/59
[2025-05-31] MEDS: CRESTOR 20 MG PO (16:37)
[2025-05-31 16:39] LABS: Glucose - Point of Care 192 mg/dl (70-99)
[2025-05-31] MEDS: FLOMAX 0.8 MG PO (20:14)
[2025-05-31 21:28] LABS: Glucose - Point of Care 134 mg/dl (70-99)
[2025-05-31] MEDS: LANTUS 0.28 UNITS SC (21:42)
[2025-05-31 23:34] VITALS: BP 138/64
[2025-06-01 06:00] VITALS: BMI 27.4
[2025-06-01 07:05] LABS: Glucose - Point of Care 128 mg/dl (70-99)
[2025-06-01] MEDS: NOVOLOG FLEXPEN-LOW RESISTANCE SC (07:06)
[2025-06-01 07:17] LABS: Blood Urea Nitrogen 35 mg/dl (9-20); Calcium 8.7 mg/dl (8.4-10.2); Carbon Dioxide 21 mmol/L (22-30); Chloride 109 mmol/L (98-107); Estimated Creatinine Clearance 49 ml/min; Glucose 122 mg/dl (70-99); Potassium 4.4 mmol/L (3.5-5.1); Sodium 138 mmol/L (135-145); eGFR 55.19
[2025-06-01] MEDS: DESENEX/MITRAZOL/ZEASORB 1 APPLIC TOPICAL (07:30)
[2025-06-01] MEDS: HEPARIN 5000 UNITS SC (07:31)
[2025-06-01] MEDS: NOVOLOG FLEXPEN 10 UNITS SC ×2 (07:31→11:44)
[2025-06-01] MEDS: FARXIGA 10 MG PO (07:31)
[2025-06-01 07:55] VITALS: BP 119/58
[2025-06-01 10:54] LABS: Glucose - Point of Care 178 mg/dl (70-99)
--- NOTE | 2025-06-01 11:38 | W.PN.HOSP.TC ---
Today's Communication/Plan
-
P.o. antibiotics
Insulin adjusted. Blood glucose improved.
Assessment / Plan
Assessment / Plan
# Urinary tract infection
#BPH / Urinary Retention
self catheterizes BID
continue tamsulosin and finasteride
Follows with Dr. Prasad as outpatient
Urine culture with Klebsiella lactobacillus. Chairez sensitivity noted.
Continue with antibiotic ceftriaxone and switch to p.o. on discharge. Per patient his pharmacy is open 21/06
Continue with IV fluids in the interim
#acute kidney injury likely combination of episode of hypertension, urinary tract infection, uncontrolled diabetes
#Mild hyponatremia likely secondary pseudohyponatremia in setting of hyperglycemia
Creatinine continues to improve. Recommend outpatient BMP via primary doctor.
Continue to trend
# CAD status post TRACE to LAD
continue rosuvastatin
#DM-II uncontrolled
AccuCheck AC & HS
SSI. A1c was found to be elevated 11.
Glargine was increased to 28 units nightly. NovoLog was increased to 10 units AC. Patient understands to hold NovoLog if skipping meal.
Diabetic TECHNICAL SUPPORT COORDINATOR consulted
POC AM 178
# Chronic HFpEF
ECHO (03/05/2025): Normal biventricular size and systolic function without regional wall motion abnormality. Estimated LVEF 50-55%.No significant valve disease.
daily weights
I & Os
Recommend to follow-up with primary hospitality host for further goal-directed medical therapy management.
#Obesity
affects all aspects of care
encourage balanced diet and exercise to promote weight loss
#Paroxysmal Atrial Fibrillation
Not on any rate control agent
Not on any anticoagulation or antiplatelet agents
Per patient and family patient was taken off by his primary hospitality host with a history of bleeding
Code status: full code
DVT prophylaxis: heparin sq
More than 30 minutes spent in discharge including
Final examination of the patient
Summarizing hospital stay
Instructions for continuing care to all relevant caregivers
Preparation of discharge records, prescriptions, and referral forms
Total time spent (in minutes): 55
Anticipated Discharge: Today
Subjective/Interval History
-
Date of Service: June 01, 2025
No overnight events
Denies lightheaded and dizziness
Objective Data
-
Labs:
Laboratory Results
06/01/25
06:31
Sodium 138
Potassium 4.4
Chloride 109 H
Carbon Dioxide 21 L
BUN 35 H
Creatinine 1.3
Glucose 122 H
Calcium 8.7
Vital Signs:
Vital Signs
Temp Pulse Resp BP Pulse Ox
98.1 F 67 17 119/58 98
06/01/25 07:55 06/01/25 07:55 06/01/25 07:55 06/01/25 07:55 06/01/25 07:55
I&O
05/31/25 06/01/25 06/02/25
06:59 06:59 06:59
Intake Total 1320 / 1320 800 / 800
Output Total 885 / 885 1165 / 1165
Balance 435 / 435 -365 / -365
[2025-06-01] MEDS: NOVOLOG FLEXPEN-LOW RESISTANCE 1 UNITS SC (11:44)
--- NOTE | 2025-06-01 11:51 | W.DCSUMMARY ---
Discharge Summary
Discharge Data
Date of Admission: 05/29/25
Date of Discharge: 06/01/25
-
Pending Results: No
Hospital Course
80-year-old male past medical history of chronic HFpEF, obesity, diabetes mellitus uncontrolled, atrial fibrillation, history of hematuria, CAD status post stents, BPH, history of urinary retention status post self-catheterization at home was
presenting from home with uncontrolled sugar. Patient was also found to urinary tract infection. Patient was started on IV antibiotics. Patient was found to have a Klebsiella urinary tract infection and was started on IV antibiotics. Urine
culture with robertson sensitivity and will transition to p.o. antibiotics on discharge. Patient was also found in acute kidney injury. Patient creatinine down trended. IV fluid was discontinued. Patient was also found with uncontrolled diabetes.
Patient Lantus was increased to 28 units nightly. NovoLog was increased to 10 units. Patient blood glucose stabilized. Patient was recommended to follow-up with his klystrom tube tester in regards for Entresto and Jardiance. Patient was also recommended
to follow-up with fuel management handler. Referral was provided. Patient was evaluated by PT.
Discharge Plan
-
Patient Disposition: Home (Routine Discharge)
Discharge Diagnosis/Procedures: Urinary tract infection
Acute kidney injury
Diabetes mellitus uncontrolled
Condition: Fair
Diet: 2 Gram Sodium, Diabetic, Carb Controlled and Restrict fluids to 48 oz
Activity: No restrictions
Driving Restrictions: As prior to admission
Blood Work: BMP in 5 to 7 days via primary doctor
Referrals:
Bin Al MD [Consulting Staff, Endocrinology] - in one to two weeks
Referral Note: Call to make appointment for diabetes management.
Malcom Guevara DO [Family Provider, General] - in less than 1 week
Prescriptions:
New
cephalexin 500 mg capsule
500 mg PO Q6H 7 Days Qty: 28 0RF
Continued
tamsulosin 0.4 mg capsule
0.8 mg PO HS
rosuvastatin 20 mg tablet
20 mg PO QPM
Entresto 49-51 mg Tablet
1 tab PO BID 30 Days Qty: 30 0RF
finasteride 1 mg Tablet
1 mg PO DAILY
cinnamon bark [Cinnamon] 500 mg Capsule
500 mg PO DAILY
omega 6-arh-scg-fish oil [Fish Oil] 1,000 (120-180) mg Capsule
1 cap PO DAILY
garlic 200 mg Tablet
200 mg PO DAILY
Jardiance 25 mg Tablet
25 mg PO DAILY
Changed
insulin aspart U-100 [Novolog U-100 Insulin aspart] 100 unit/mL Solution
10 sliding scale dose SC AC Qty: 0 0RF
insulin glargine [Basaglar KwikPen U-100 Insulin] 100 unit/mL (3 mL) Insulin Pen
28 unit SC HS Qty: 0 0RF
Discharge Orders:
Discharge Patient (As Directed); Ordered 06/01/25
Ordered By: Jason Pandya
Discharge Date and Time
Print Language: CZECH
[2025-06-01] MEDS: ROCEPHIN 1000 MG IV (13:34)
[2025-06-01] MEDS: STERILE WATER FOR INJECTION 10 ML IV (13:34)
[2025-06-01 14:16] VITALS: BP 122/62
== END 2025-06-01 16:09 | disposition home health service (06) | DRG 690 ==
LOC: 4 WEST ACU 15:24
PROVIDERS: Emergency Medicine; Nurse Practitioner Family; ADMITTING PHYSICIAN Hospitalist; ATTENDING PHYSICIAN Hospitalist; EMERGENCY PHYSICIAN Emergency Medicine; FAMILY PHYSICIAN General Practice
DX: N39.0 Urinary tract infection, site not specified (principal); N17.9 Acute kidney failure, unspecified; I50.32 Chronic diastolic (congestive) heart failure; E11.65 Type 2 diabetes mellitus with hyperglycemia; E66.9 Obesity, unspecified; I25.10 Atherosclerotic heart disease of native coronary artery without angina pectoris; Z95.5 Presence of coronary angioplasty implant and graft; I48.0 Paroxysmal atrial fibrillation; N40.1 Benign prostatic hyperplasia with lower urinary tract symptoms; R33.8 Other retention of urine; Z79.4 Long term (current) use of insulin; Z79.84 Long term (current) use of oral hypoglycemic drugs; B96.1 Klebsiella pneumoniae [K. pneumoniae] as the cause of diseases classified elsewhere
CPT/HCPCS: 51701; 80048; 80053; 81003; 81015; 82010; 82805; 82962; 83036; 85025; 87077; 87086; 87186; 96361; 96372; 96374; 97161; 99284

== ENCOUNTER 2025-07-24 07:06 | Outpatient (RCR) | payer OTHER, SELFPAY | END 2025-07-24 23:59 | disposition home or self-care (01) | LOC: RPT 07:06 | PROVIDERS: ATTENDING PHYSICIAN General Practice | DX: R26.89 Other abnormalities of gait and mobility (principal); Z73.6 Limitation of activities due to disability; M62.81 Muscle weakness (generalized); Z91.81 History of falling | CPT/HCPCS: 97163; 97530 ==

== ENCOUNTER 2025-08-02 11:38 | Outpatient (RCR) | payer OTHER, SELFPAY | END 2025-08-02 23:59 | disposition home or self-care (01) | LOC: RPT 11:38 | PROVIDERS: ATTENDING PHYSICIAN General Practice | DX: R26.89 Other abnormalities of gait and mobility (principal); Z73.6 Limitation of activities due to disability; M62.81 Muscle weakness (generalized); Z91.81 History of falling | CPT/HCPCS: 97110; 97112 ==

== ENCOUNTER 2025-08-07 17:03 | Inpatient (IN) | payer OTHER, SELFPAY ==
[2025-08-07] VITALS (9 sets, daily range): BP systolic 94–149; BP diastolic 40–64; BMI 31.7; BMI 30.4; BMI 30.6
[2025-08-07 12:05] LABS: Hematocrit 23.4 % (39.0-52.0); Hemoglobin 8.2 g/dL (13.0-18.0); Mean Corp Hgb Conc. 35.0 g/dL (33.0-37.0); Mean Corpuscular Volume 81.3 fL (80.0-94.0); Nucleated Red Blood Cells % 0 % (-); Platelet Count 313 10^3/uL (130-400); Red Cell Dist. Width 15.6 % (11.5-14.5)
[2025-08-07 12:42] LABS: ALT (SGPT) 24 U/L (0-50); AST (SGOT) 22 U/L (17-59); Albumin 3.1 g/dl (3.5-5.0); Alkaline Phosphatase 69 U/L (38-126); Blood Urea Nitrogen 66 mg/dl (9-20); Calcium 8.4 mg/dl (8.4-10.2); Carbon Dioxide 12 mmol/L (22-30); Chloride 108 mmol/L (98-107); Glucose 294 mg/dl (70-99); Potassium 5.8 mmol/L (3.5-5.1); Sodium 131 mmol/L (135-145); Total Protein 6.8 g/dl (6.3-8.2); eGFR 27.83
[2025-08-07 12:49] LABS: Troponin I < 0.012 ng/ml
--- NOTE | 2025-08-07 13:23 | ED.GENMED ---
History of Present Illness
General
Chief Complaint: Swelling
Source: patient and spouse
Exam Limitations: none
Time Seen by Provider: 08/07/25 13:04
History of Present Illness
History of Present Illness:
80-year-old male progressive bilateral edema abdominal bloating general weakness. Symptoms have been progressive over days to weeks. No chest pain no shortness of breath no fever
Past History
Past History
ED Past Medical History: CAD and IDDM
ED Past Surgical History: Cardiac
Social History
Tobacco: Non-smoker
Alcohol: None
Drug: None
Personal:
Living: with family
Review of Systems
Review of Systems
All Other Systems: Not applicable
Constitutional: Denies fever or chills
Respiratory: Denies trouble breathing
Cardiac: Denies chest pain
Phy Exam
Physical Exam
Physical Exam:
GENERAL: Alert and oriented in no apparent distress
EYE: Orbits normal.
NECK: Supple
CARDIAC: Regular rate and rhythm without any obvious murmurs.
LUNGS: No respiratory distress however a few crackles in the bases
ABDOMEN: Soft, without focal tenderness or distention. Elevated BMI. Rectal heme-negative
NEUROLOGICAL: Alert and oriented , grossly non-focal
SKIN: Warm and dry
MUSCULOSKELETAL: Significant bilateral pitting edema
PSYCH: Normal and appropriate interaction.
Scores
Heart Failure Risk
Heart Failure Risk Score: Not Applicable
Course
Orders/Labs/Results
Orders:
Orders
08/07/25 11:39
Electrocardiogram (*1) Urgent
Reason for Study: Fatigue / Weakness
08/07/25 11:40
EKG- Treatment ONCE
08/07/25 11:44
Complete Blood Count/With Diff Urgent
Comprehensive Metabolic Panel Urgent
Pro-BNP [NT-proBNP] Urgent
Troponin I Urgent
08/07/25 13:18
CXR2 [CR Chest - 2 Views ] Urgent
Comment:
Reason For Exam: weak fluid retention
08/07/25 14:36
Furosemide [Lasix] 40 mg IV NOW STA
Sodium Zirconium Cyclosilicate [Lokelma] 10 gram PO NOW STA
08/07/25 14:38
Urinalysis Reflex To Culture Urgent
Date Specimen was Collected: 08/07/25
Time Specimen was Collected: 14:37
Urine Microscopic Reflex Cult Urgent
Urine Culture Urgent
JUSTO Source: U
Specimen Description:
Date Specimen was Collected: 08/07/25
Time Specimen was Collected: 14:37
08/07/25 Dinner
Cholesterol Lowering
At Your Request: Limited Participation
Does patient need a safe tray?: No
Fluid Restriction: 1500 mL/day (50 oz)
Cholesterol Lowering: Sodium, 2 Gram
1999 sukhwinder/17 CHO Diabetic
08/07/25 16:34
NEPHROLOGY CONSULT Routine
Consulting Provider: Brooks Monson
Was physician already notified: Yes
08/07/25 16:43
Admit/Transfer Patient As Directed
Co-Sign Provider:
Level of Care: Inpatient admission
Assign to:: Telemetry
Physician / Group: Hospitalist
Diagnosis: Metabolic acidosis, FELIZ
Reason for Telemetry: Other
Other Reason for Telemetry: Diuresis, electrolyte abnomrality
Date to Stop Telemetry: 08/09/25
Time to Stop Telemetry: 11:00
Reason for Hospitalization: Metabolic acidosis, FELIZ
Expected length of stay greater than two midnights?: Yes
ELOS- Estimated Length of Stay in days: 3
I certify the patient meets the requirements for IP care: Yes
PRN Pain Medication Management As Directed
May give lesser potent ordered pain med per pt: Yes
preference::
Protocol:: Medication orders for pain may be administered in a
manner that supports deferring to patient preference
when the pt is:
- Requesting an ordered lesser potent pain medication.
Least to most potent pain medications are defined
as: acetaminophen < NSAID < tramadol < opioids
(morphine, oxycodone, hydromorphone).
- Requesting a lesser dose of the same medication IF
ORDERED.
- Requesting a less intrusive route of administration
if both routes are prescribed by the provider (PO <
IV).
08/07/25 16:47
Code Status As Directed
Resuscitation Status: Full Code
08/07/25 16:56
Add On- LAB Routine
Tests Added?: VBG
08/07/25 19:45
Bisacodyl [Dulcolax] 10 mg RECTAL [id number] PRN
Dextrose 50%-Water [Dextrose 50% Syringe] 12.5 grams IV [id number] PRN
Docusate W/Senna [Senokot-S] 1 tablet PO BIDPRN PRN
Glucagon [GlucaGen] 1 mg IM PRN PRN
Polyethylene Glycol Powder [Miralax] 17 grams PO DAILYPRN PRN
Rosuvastatin Calcium [Crestor] 20 mg PO QPM
Sodium Bicarbonate 50 meq IV NOW STA
08/07/25 19:45
Activity As Directed
Activity Level: With Assistance
Bedside Glucose Monitoring As Directed
Frequency: AC&HS
Additional Instructions:: Change to q6h if pt on TPN, tube feeding or not eating
Claire Catheter [Catheter- Indwelling] As Directed
Reason for insertion: Acute Kidney Injury
Discontinue Date/Time: 08/10/25 0600
Intake/ Output As Directed
Frequency: Per unit guidelines
Intake/ Output As Directed
Frequency: Per unit guidelines
Comment: strict intake and output monitoring
Vital Signs As Directed
Frequency: Per unit guidelines
Weight As Directed
Frequency: Daily
Weight As Directed
Frequency: Daily
DX Deep Vein Thrombosis Video Routine
08/07/25 20:00
Heparin 5,000 units SC Q12
08/07/25 20:44
Basic Metabolic Panel Routine
08/07/25 21:00
Insulin Aspart Pen [Novolog Flexpen] 12 units SC DAILY@1730
08/07/25 22:00
Tamsulosin [Flomax] 0.8 mg PO HS
insulin glargine [Basaglar KwikPen U-100 Insulin] 29 unit SC HS
08/08/25 06:00
Basic Metabolic Panel IN AM
Complete Blood Count/No Diff IN AM
Ferritin IN AM
Folate IN AM
Glycohemoglobin (HgbA1c) IN AM
Iron IN AM
Total Iron Binding IN AM
Vitamin B12 IN AM
08/08/25 07:30
Insulin Aspart Corrective Mod [Novolog Flexpen-Moderate Resistance] See Protocol SC AC
Insulin Aspart Pen [Novolog Flexpen] 14 units SC BID@0730,1130
08/08/25 08:00
finasteride 1 mg PO DAILY
08/09/25 11:00
DC Protocol for Telemetry ONCE
Abnormal Lab Results
08/07/25 08/07/25
11:44 14:38
RBC 2.88 L 10^6/uL
(4.70-6.10)
Hgb 8.2 L g/dL
(13.0-18.0)
Hct 23.4 L %
(39.0-52.0)
RDW 15.6 H %
(11.5-14.5)
Abs Immat Gran (auto) 0.1 H 10^3/uL
(0-0.05)
Absolute Neuts (auto) 7.3 H 10^3/uL
(1.4-6.5)
Absolute Lymphs (auto) 1.1 L 10^3/uL
(1.2-3.4)
Absolute Monos (auto) 1.3 H 10^3/uL
(0.1-0.6)
Lymphocytes % 11.4 L %
(20.5-51.1)
Monocytes % 12.8 H %
(1.7-9.3)
Sodium 131 L mmol/L
(135-145)
Potassium 5.8 H mmol/L
(3.5-5.1)
Chloride 108 H mmol/L
(98-107)
Carbon Dioxide 12 L* mmol/L
(22-30)
BUN 66 H mg/dl
(9-20)
Creatinine 2.3 H mg/dL
(0.7-1.3)
Glucose 294 H mg/dl
(70-99)
Albumin 3.1 L g/dl
(3.5-5.0)
Ur Occult Blood Reflex 4+ A
(Negative)
Leukocyte Esterase Rfl 3+ A
(Negative)
Urine WBC (Reflex) >100 A /HPF
(0-5)
Urine Glucose 4+ A
(Negative)
Urine Albumin (Reflex) 3+ A
(Neg - Trace)
08/07/25 11:44
08/07/25 11:44
Vital Signs
Initial and Last Documented VS:
Initial Vital Signs
Temp Pulse Resp BP Pulse Ox
98.5 F 93 20 101/40 98
08/07/25 11:37 08/07/25 11:37 08/07/25 11:37 08/07/25 11:37 08/07/25 11:37
Last Documented Vital Signs
Temp Pulse Resp BP Pulse Ox
99.3 F 89 18 132/52 94
08/08/25 03:34 08/08/25 03:34 08/08/25 03:34 08/08/25 03:34 08/08/25 03:34
MDM/Problems Addressed
Differential Diagnosis Includes:
Patient clinically with significant fluid overload. Significant weight gain of 14 kg in 2 months. Anemia is likely delusional. Rectal is negative. Hyperkalemia metabolic acidosis renal insufficiency. All warrants inpatient management
*Pulse Oximetry
SaO2: 97
Oxygen Mode of Delivery: Room air
Patient hypoxic: no
*EKG
Interpreted by ED Provider?: Yes
Interpretation: abnormal
Comparison EKG: changes noted
Heart Rate: 91
Rate: normal
Rhythm: sinus
[place]: left axis deviation
Interval: normal interval
QRS Pattern: low voltage
Ischemia: non-specific ST changes
*Vp Director Of Creative Strategy Interpretation
Rate: normal
Interpretation: normal
Heart Rate: 88
Rhythm: sinus
*Critical Care Note
Total Time (30-74mins, 75-104mins- exclusive of procedures): Not Applicable
Data Reviewed
Review of Other/Old Records Reveals: Labs, Records, Radiology Studies and Testing
ED Attending Note
-
Portions of this chart may have been created with voice recognition software.� Occasional wrong word or��sound alike� substitutions may have occurred due to the inherent limitations of voice recognition software.
Discharge Plan
Departure
Patient Disposition: Admit
Date of Disposition: 08/07/25
Time of Disposition: 14:38
Presentation/result/management discussed w/ accepting MD/DO: Hospitalist
Discharge Problem:
Fluid overload/edema, Anemia, Hyperkalemia, Metabolic acidosis, Possible UTI
Interventions
Interventions:
*Risk Screen - Suicide Last Done: 08/07/25 22:42
*General Assessment Last Done: 08/07/25 11:37
*Neglect/Abuse Screening Last Done: 08/07/25 15:12
*ED- Fall Risk Assessment Last Done: 08/07/25 15:12
*ED COVID-19 Vaccine History Last Done: 08/07/25 15:12
*Nursing Disposition Last Done: 08/07/25 19:41
ED- Cardiac Assessment Last Done: 08/07/25 15:12
ED- Pulmonary Assessment Last Done: 08/07/25 15:12
ED-Skin Assessment Last Done: 08/07/25 15:12
Discharge Date and Time
Discharge Date/Time: 08/07/25 19:45
[2025-08-07 14:53] LABS: Urine Character Cloudy (Clear)
[2025-08-07 15:02] LABS: Urine White Cell >100 /HPF (0-5)
--- NOTE | 2025-08-07 16:01 | HPS.HSE ---
Addendum entered and electronically signed by Harjit Villegas MD 08/07/25 19:39:
This is an addendum to H&P written by Mayela Neal on 08/07/2025. �Patient seen and examined independently with resident.
80-year-old male past medical history of CAD, paroxysmal atrial fibrillation, HFpEF, obesity, diabetes, allergic rhinitis, BPH and self catheterizes, arthritis, ambulatory dysfunction, hypercholesteremia, presenting with progressive weakness and
lower extremity edema and abdominal distention ongoing for 3 days. �Weight gain 17 pounds from dry weight. �Nonproductive cough, rhinorrhea and postnasal drip. �No chest pain or palpitations or shortness of breath.
Vital signs unremarkable.
Labs show hemoglobin 8.2. Cr 2.3. �Sodium 131. �Potassium 5.8. �Bicarb of 12. �Glucose 294. �Cardiac BNP of 1300. �Troponin negative.
Chest x-ray shows no active disease.
Patient with FELIZ, hyperkalemia and non-anion gap metabolic acidosis unclear etiology. �Unclear whether this is medical renal disease versus obstructive uropathy versus cardiorenal syndrome less likely. �Patient not using excessive NSAIDs. �Patient
not overtly in congestive heart failure exacerbation, likely some volume retention from renal failure.
Patient with normocytic anemia hemoglobin 8.2 likely anemia of chronic disease.
He was given IV Lasix, and Lokelma.
Laura catheter, check I's and O's, check renal ultrasound, bicarb push, Nephrology consulted. May benefit from gentle IV fluids with bicarb.
Anemia workup, check ferritin, iron, TIBC, B12 and folate.
Original Note:
Family Physician
-
Family Physician: Malcom Guevara
Chief Complaint
-
Weakness, increased bilateral LE swelling
History of Present Illness
80 year old male with history of CAD s/p stents, HFpEF, IDDM2, paroxysmal Afib, Allergic rhinitis, BPH (self cath), Right knee arthritis, Ambulatory dysfunction who presents with progressive weakness, worsening bilateral LE edema x3 days. He also
reports a recent weight gain of 17 lbs. Per patient, dry weight is 219lbs but he weighed 236 at home today. He has chronic bilateral LE edema, but reports that he is significantly more swollen than his baseline.
He also reports a non-productive cough, postnasal drip and rhinitis which he attributes to ragweed exposure in is backyard, a known environmental allergen for him. He recalls one episode of night sweats 2 weeks ago. Otherwise, denies fever, chills,
chest pain, palpitations, nausea/vomiting, fever/chills, shortness of breath, or new urinary symptoms.
Medical History
Past Medical History
Past Medical History: Reports Arrhythmia (Paroxysmal A-fib), CAD (Status post stenting 06/2024), CHF, IDDM (Type 2 diabetes) and Other (Right knee arthritis, ambulatory dysfunction, BPH (self cath), allergic rhinitis, pancreatitis)
Past Surgical History: Reports Cardiac (coronary stent placement 06/2024) and Other (Pilonidal cyst removal, remote history)
Social History
Tobacco: Non-smoker
Alcohol: Former (Remote history)
Drug: None
Personal:
Living: With Family
Family History
Family History: Not pertinent
Allergies / Home Medications
Allergies reflects when Allergies were last updated in [facility].
Home Medications with original date entered in [facility]
Allergy/Medication List:
Allergies
Allergy/AdvReac Type Severity Reaction Status Date / Time
egg Allergy Hives Verified 08/07/25 11:38
ragweed pollen Allergy Unknown Verified 08/07/25 11:38
tri Allergy Hives Uncoded 08/07/25 11:38
Home Medications
rosuvastatin 20 mg tablet 20 mg PO QPM hyperlipidemia 03/15/25
tamsulosin 0.4 mg capsule 0.8 mg PO HS BPH 03/15/25
sacubitril 49 mg-valsartan 51 mg tablet (Entresto) 1 tab PO BID Heart Failure 30 days #30 tabs 03/23/25
empagliflozin 25 mg tablet (Jardiance) 25 mg PO DAILY Diabetes 05/29/25
finasteride 1 mg tablet 1 mg PO DAILY Hair 05/29/25
garlic 200 mg tablet 200 mg PO DAILY Supplement 05/29/25
omega 5-lxv-oyh-fish oil 1,000 mg (120 mg-180 mg) capsule (Fish Oil) 1 cap PO DAILY Supplement 05/29/25
ibuprofen 200 mg tablet (Advil) 400 mg PO HSPRN PRN mild pain 08/07/25
insulin aspart U-100 100 unit/mL subcutaneous solution (Novolog U-100 Insulin aspart) 12 sliding scale dose SC QPM 08/07/25
insulin aspart U-100 100 unit/mL subcutaneous solution (Novolog U-100 Insulin aspart) 14 sliding scale dose SC BID Diabetes 08/07/25
insulin glargine 100 unit/mL (3 mL) subcutaneous pen (Basaglar KwikPen U-100 Insulin) 29 unit SC HS Diabetes 08/07/25
Review of Systems
-
History Source: Patient
Constitutional: Reports Weight Gain (17 lbs), Fatigue and Night Sweats; Denies Fever or Chills
Respiratory: Reports Cough; Denies Hemoptysis or Trouble Breathing
Cardiac: Denies Chest Pain or Palpitations
Abdomen/GI: Denies Abdominal Pain, Nausea or Vomiting
: Reports Difficulty Voiding and Other (self cath. No suprapubic pain); Denies Bleeding
Musculoskeletal: Reports Edema (Bilateral lower extremity edema)
Physical Exam
Vital Signs
Vital Signs
Temp Pulse Resp BP Pulse Ox
98.5 F 76 26 120/49 96
08/07/25 11:37 08/07/25 15:00 08/07/25 15:00 08/07/25 15:00 08/07/25 15:00
Physical Exam
General: Well Developed, Well Nourished and No Apparent Distress
HEENT: NormoCephalic, Anicteric and Moist mucous membranes
Respiratory: Clear and Non Labored Respirations; No Wheezes, Rales, Rhonchi or Crackles
Cardiac: S1/S2, Regular Rhythm and Peripheral Edema; No Murmur, Rub or Gallop
GI: Soft, Non Tender, Normal Bowel Sounds and Distended (mildly)
Genito-urinary: No costovertebral tender
Musculoskeletal: No Clubbing, No Cyanosis, Edema, Left Lower Extremity (2+) and Edema, Right Lower Extremity (2+)
Skin: Warm and Dry
Neuro: Awake, Alert and Oriented
Psych: Calm
Laboratory Results
-
08/07/25 11:44
08/07/25 11:44
Laboratory Results
Total Bilirubin 0.4 mg/dl (0.2-1.3) 08/07/25 11:44
AST 22 U/L (17-59) 08/07/25 11:44
ALT 24 U/L (0-50) 08/07/25 11:44
Alkaline Phosphatase 69 U/L (38-126) 08/07/25 11:44
Troponin I < 0.012 ng/ml 08/07/25 11:44
Impression/Plan
-
IMPRESSION:
80 year old male with history of CAD s/p stents, HFpEF, IDDM2, paroxysmal Afib, Allergic rhinitis, BPH (self cath), Right knee arthritis, Ambulatory dysfunction who presents with progressive weakness, worsening bilateral LE edema x3 days, FELIZ,
metabolic acidosis.
PLAN:
Worsening LE edema, weight gain:
Acute on chronic CHF is unlikely given proBNP 1330. Likely secondary to FELIZ
- Received lasix 40mg in ED
- Place laura
- Strict IandOs
- Fluid restriction
- Nephrology consult
- Daily weights
FELIZ:
Metabolic acidosis:
Cr 2.3, baseline 1.1
- Bicarb IV push
- Get vbg
- Received lokelma in ED. Recheck BMP in a few hours
- Add laura, nephro consult
- Urinalysis suspicious for UTI however, with history of self cath and no new urinary symptoms, asymptomatic bacteriuria likely. will hold off on abx
- Hold Entresto and Jardiance
Hyperkalemia:
- Secondary to metabolic acidosis.
- Received lokelma in ED. Recheck BMP
Hyponatremia:
- Hypervolemic
- monitor for now, recheck BMP
Proteinuria:
Significant albuminuria, hypoalbuminemia. Concern for intrinsic renal problem/nephrotic syndrome. History of insulin dependent diabetes.
- Check kidney bladder US
- Nephrology consult
IDDM2:
- Hold Jardiance
- will continue home insulin regimen of Lantus 29u HS, Novolog 14u am and noon, 12u pm
- follow accucheck
- SSI
BPH:
Self caths at home.
- Place laura.
Paroxysmal Afib:
- Reconciled med list does not contain anticoagulation although pt sates he is on Eliquis. Unsure of dose.
- Please confirm dosing with pt when he brings in list of meds
- Heparin subQ for DVT ppx for now.
Chronic anemia:
- Unclear cause.
- Check iron panel, folate, B12
Right knee arthritis:
- Avoid NSAIDs.
- Tylenol
DVT ppx: heparin SubQ
Code status: Full code
[2025-08-07] MEDS: LASIX 40 MG IV (16:27)
[2025-08-07] MEDS: LOKELMA 10 GRAM PO (16:27)
[2025-08-07] MEDS: SODIUM BICARBONATE 50 MEQ IV (20:30)
[2025-08-07] MEDS: FLOMAX 0.8 MG PO (20:52)
[2025-08-07] MEDS: CRESTOR 20 MG PO (20:52)
[2025-08-07] MEDS: HEPARIN 5000 UNITS SC (20:53)
[2025-08-07 20:58] LABS: Venous Blood Gas B.E. -8.2 mmol/L (-4 to +4); Venous Blood Gas O2 Sat % 96.5 %; Venous Blood Gas O2 Therapy 98
[2025-08-07 21:14] LABS: Blood Urea Nitrogen 71 mg/dl (9-20); Calcium 8.5 mg/dl (8.4-10.2); Carbon Dioxide 18 mmol/L (22-30); Chloride 105 mmol/L (98-107); Estimated Creatinine Clearance 34 ml/min; Glucose 296 mg/dl (70-99); Potassium 5.5 mmol/L (3.5-5.1); Sodium 131 mmol/L (135-145); eGFR 31.04
[2025-08-07 21:45] LABS: Glucose - Point of Care 319 mg/dl (70-99)
[2025-08-07] MEDS: NOVOLOG FLEXPEN 12 UNITS SC (22:07)
[2025-08-07] MEDS: LANTUS 0.29 UNITS SC (22:08)
[2025-08-08] VITALS (7 sets, daily range): BP systolic 101–132; BP diastolic 45–52; BMI 29.9
[2025-08-08 00:34] LABS: Glucose - Point of Care 108 mg/dl (70-99)
[2025-08-08 02:31] LABS: Glucose - Point of Care 113 mg/dl (70-99)
[2025-08-08 07:09] LABS: Hematocrit 21.7 % (39.0-52.0); Hemoglobin 7.6 g/dL (13.0-18.0); Mean Corp Hgb Conc. 35.0 g/dL (33.0-37.0); Mean Corpuscular Volume 79.5 fL (80.0-94.0); Platelet Count 312 10^3/uL (130-400); Red Cell Dist. Width 15.6 % (11.5-14.5)
[2025-08-08 07:25] LABS: Blood Urea Nitrogen 59 mg/dl (9-20); Calcium 8.3 mg/dl (8.4-10.2); Carbon Dioxide 18 mmol/L (22-30); Chloride 111 mmol/L (98-107); Estimated Creatinine Clearance 35 ml/min; Glucose 79 mg/dl (70-99); Iron 22 ug/dl (49-181); Potassium 5.0 mmol/L (3.5-5.1); Sodium 135 mmol/L (135-145); eGFR 37.35
[2025-08-08 07:34] LABS: Total Iron Binding Capacity 167 ug/dl (261-462)
[2025-08-08 08:01] LABS: Ferritin 219.0 ng/ml (17.9-464.0)
[2025-08-08] MEDS: HEPARIN 5000 UNITS SC ×2 (08:01→20:09)
[2025-08-08 08:21] LABS: Glucose - Point of Care 86 mg/dl (70-99)
[2025-08-08 08:32] LABS: Folate > 20.0 ng/ml (2.76-20); Vitamin B12 801 pg/ml (239-931)
[2025-08-08] MEDS: NOVOLOG FLEXPEN-MODERATE RESISTANCE SC ×3 (09:01→17:23)
--- NOTE | 2025-08-08 09:04 | W.PN.HOSP.TC ---
Today's Communication/Plan
-
see bold
Assessment / Plan
Assessment / Plan
HPI: 80-year-old male past medical history of CAD, paroxysmal atrial fibrillation, HFpEF, obesity, diabetes, allergic rhinitis, BPH and self catheterizes, arthritis, ambulatory dysfunction, hypercholesteremia, presenting with progressive weakness
and lower extremity edema and abdominal distention ongoing for 3 days. �Weight gain 17 pounds from dry weight. �Nonproductive cough, rhinorrhea and postnasal drip. �No chest pain or palpitations or shortness of breath. Labs show hemoglobin 8.2. Cr
2.3. �Sodium 131. �Potassium 5.8. �Bicarb of 12. �Glucose 294. �Cardiac BNP of 1300. �Troponin negative. Chest x-ray shows no active disease.
Patient with FELIZ, hyperkalemia and non-anion gap metabolic acidosis unclear etiology. �Unclear whether this is medical renal disease versus obstructive uropathy versus cardiorenal syndrome less likely. �Patient not using excessive NSAIDs. �Patient
not overtly in congestive heart failure exacerbation, likely some volume retention from renal failure.
He was given IV Lasix, and Lokelma.
Claire catheter, check I's and O's, check renal ultrasound, bicarb push, Nephrology consulted. May benefit from gentle IV fluids with bicarb.
Anemia workup, check ferritin, iron, TIBC, B12 and folate.
Acute on chronic heart failure with preserved ejection fraction
FELIZ concerning for cardiorenal syndrome
Worsening LE edema, weight gain
-Appreciate nephrology input, continue IV Lasix as per nephrology
-Renal ultrasound shows mild right hydronephrosis despite self catheterization -Claire inserted in ED
-Hold Entresto and Jardiance. Trend creatinine, trend daily weights
Possible urinary tract infection
- Urine culture with greater than 100,000 colonies of gram-negative bacilli
- Start IV Rocephin day 1, follow-up on urine cultures
Iron deficiency anemia
- IV iron as per nephrology
Hyperkalemia
- Resolved status post Lokelma
Hypervolemic hyponatremia
- Resolved with IV Lasix
Proteinuria
Significant albuminuria, hypoalbuminemia. Concern for intrinsic renal problem/nephrotic syndrome. History of insulin dependent diabetes.
- Nephrology ordered urine PCR for albuminuria
IDDM2
- Hold Jardiance
- Continue insulin regimen of Lantus 29u HS, Novolog 10u am and noon, 10u pm
- SSI
BPH:
Self caths at home.
- Claire placed in the ED 08/07
Paroxysmal Afib:
- Reconciled med list does not contain anticoagulation although pt sates he is on Eliquis. Unsure of dose.
- Resume Eliquis 5 mg twice a day
Right knee arthritis:
- Avoid NSAIDs.
- Tylenol, oxy prn
DVT ppx: Resume Eliquis
Code status: Full code
Total time spent to see the patient on the floor, examine the patient, review data and lab results, discuss treatment plan with patient, nursing staff around 51 minutes.
Physical Exam
General: No acute distress
HEENT: Normocephalic, Atraumatic, EOMI, MMM
Respiratory: Left basilar crackles
Cardiac: Normal S1/S2, Regular Rate and Rhythm
GI: Soft, Nontender, Nondistended, Normal Bowel Sounds
Extremities: No Clubbing, Cyanosis
Bilateral lower extremity edema with skin changes reflective of chronic venous stasis dermatitis
Neuro: Nonfocal/Grossly Intact
Psych: Calm, Cooperative
Anticipated Discharge: 24 - 48 hours
Subjective/Interval History
-
Date of Service: August 08, 2025
Patient reports feeling tired. He denies chest pain, denies shortness of breath. No abdominal pain, no nausea, no vomiting. No fever.
Objective Data
-
Labs:
Laboratory Results
08/07/25 08/08/25
20:44 06:41
WBC 9.3
Hgb 7.6 L
Hct 21.7 L
Plt Count 312
Sodium 131 L 135
Potassium 5.5 H 5.0
Chloride 105 111 H
Carbon Dioxide 18 L 18 L
BUN 71 H 59 H
Creatinine 2.1 H 1.8 H
Glucose 296 H 79
Calcium 8.5 8.3 L
Vital Signs:
Vital Signs
Temp Pulse Resp BP Pulse Ox
100.2 F 82 16 112/45 93
08/08/25 07:05 08/08/25 07:05 08/08/25 07:05 08/08/25 07:05 08/08/25 07:05
I&O
08/07/25 08/08/25 08/09/25
06:59 06:59 06:59
Intake Total 480 / 480
Output Total 3100 / 3100
Balance -2620 / -2620
[2025-08-08] MEDS: NOVOLOG FLEXPEN 10 UNITS SC ×3 (09:10→17:59)
[2025-08-08 10:12] LABS: Glycohemoglobin (HgbA1c) 9.0 % (4.0-5.6)
[2025-08-08 10:21] LABS: Glucose - Point of Care 151 mg/dl (70-99)
--- NOTE | 2025-08-08 10:37 | CM ---
Addendum entered by Karmen Silva 08/08/25 10:51:
PCP: Malcom Guevara
Rx: [facility] in [place]
Original Note:
Reviewed chart. Met with pt bedside. Lives in a 3-story home with . 13 steps to the 1st floor. Pt denies difficulty with stairs. BR on 1st floor.Has Hx of HH, but does not know agency name, no hx with SNF/Rehab. DME: rolling walker, Cane and
raised toilet seats. Confirmed PCP, Rx, insurance and drug coverage. NO insecurities identified.
Plan: Home no needs
[2025-08-08 11:35] LABS: Glucose - Point of Care 91 mg/dl (70-99)
--- NOTE | 2025-08-08 13:35 | W.CON.NEPH ---
Consultation
-
Date/Time Consultation Requested: 08/07/25 1634
Date/Time Consultation Performed: 08/08/25 1345
Requesting Provider: Mayela Rooney
Performing Provider: Kalpana Viveros
Reason for Consultation: FELIZ
Medical History
-
Chief Complaint: Weakness, increased bilateral LE swelling
History of Present Illness:
80 year old male with history of CAD s/p stents, HFpEF on Entresto, IDDM2 on Jardiance too, paroxysmal Afib, Allergic rhinitis, BPH (self cathx3/day) on Flomax, finasteride, HLD on statin, Right knee arthritis on Advil, Ambulatory dysfunction who
presents with progressive weakness, worsening bilateral LE edema x3 days. He also reports a recent weight gain of 17 lbs. Per patient, dry weight is 219lbs but he weighed 236 at home on 08/07. He has chronic bilateral LE edema, but reports that he is
significantly more swollen than his baseline. He came off lasix more than 6m ago for low BPs by his cards Dr Aly in [place]. He was not following fluid restriction too. He was taking Advil 3-4times weekly for arthritis.
He also reports a non-productive cough, postnasal drip and rhinitis which he attributes to ragweed exposure in is backyard, a known environmental allergen for him. He recalls one episode of night sweats 2 weeks ago. Otherwise, denies fever, chills,
chest pain, palpitations, nausea/vomiting, fever/chills, shortness of breath, or new urinary symptoms.
Labs show hemoglobin 8.2. Cr 2.3. �Sodium 131. �Potassium 5.8. �Bicarb of 12. �Glucose 294. �Cardiac BNP of 1300. �Troponin negative.
Today cr down to 1.8, bicarb better at 18, k normal 5, hb down 7.6 with lasix, 1 amp bicarb and Lokelamx1.
Chest x-ray shows no active disease.
Past Medical History
Paroxysmal A-fib, CAD (Status post stenting 06/2024), CHF, IDDM (Type 2 diabetes) and Other (Right knee arthritis, ambulatory dysfunction, BPH (self cath), allergic rhinitis, pancreatitis
Past Surgical History: Other (coronary stent placement 06/2024) and Other (Pilonidal cyst removal, remote history)
Social History
Tobacco: Non-Smoker
Alcohol: Former
Drug: None
Personal:
Living: With Family
Family History
Family History: Not Pertinent
Allergies / Home Medications
Allergy/AdvReac Type Severity Reaction Status Date / Time
egg Allergy Hives Verified 08/07/25 11:38
ragweed pollen Allergy Unknown Verified 08/07/25 11:38
tri Allergy Hives Uncoded 08/07/25 11:38
�Medication �Instructions �Recorded �Confirmed �Type
rosuvastatin 20 mg tablet 20 mg PO QPM hyperlipidemia 03/15/25 08/07/25 History
tamsulosin 0.4 mg capsule 0.8 mg PO HS BPH 03/15/25 08/07/25 History
sacubitril 49 mg-valsartan 51 mg 1 tab PO BID Heart Failure 30 days 03/23/25 08/07/25 Rx
tablet (Entresto) #30 tabs
empagliflozin 25 mg tablet 25 mg PO DAILY Diabetes 05/29/25 08/07/25 History
(Jardiance)
finasteride 1 mg tablet 1 mg PO DAILY Hair 05/29/25 08/07/25 History
garlic 200 mg tablet 200 mg PO DAILY Supplement 05/29/25 08/07/25 History
omega 6-hym-jvy-fish oil 1,000 mg 1 cap PO DAILY Supplement 05/29/25 08/07/25 History
(120 mg-180 mg) capsule (Fish Oil)
ibuprofen 200 mg tablet (Advil) 400 mg PO HSPRN PRN mild pain 08/07/25 08/07/25 History
insulin aspart U-100 100 unit/mL 12 sliding scale dose SC QPM 08/07/25 08/07/25 History
subcutaneous solution (Novolog Diabetes
U-100 Insulin aspart)
insulin aspart U-100 100 unit/mL 14 sliding scale dose SC BID 08/07/25 08/07/25 History
subcutaneous solution (Novolog Diabetes
U-100 Insulin aspart)
insulin glargine 100 unit/mL (3 29 unit SC HS Diabetes 08/07/25 08/07/25 History
mL) subcutaneous pen (Basaglar
KwikPen U-100 Insulin)
Review of Systems
-
All other systems: Negative unless noted
Physical Exam
Vital Signs
Vital Signs
Temp Pulse Resp BP Pulse Ox
97.8 F 73 16 101/48 95
08/08/25 11:10 08/08/25 11:10 08/08/25 11:10 08/08/25 11:10 08/08/25 11:10
Lab Results
WBC 9.3 10^3/uL (4.8-10.8) 08/08/25 06:41
RBC 2.73 10^6/uL (4.70-6.10) L 08/08/25 06:41
Hgb 7.6 g/dL (13.0-18.0) L 08/08/25 06:41
Hct 21.7 % (39.0-52.0) L 08/08/25 06:41
Plt Count 312 10^3/uL (130-400) 08/08/25 06:41
Sodium 135 mmol/L (135-145) 08/08/25 06:41
Potassium 5.0 mmol/L (3.5-5.1) 08/08/25 06:41
Chloride 111 mmol/L (98-107) H 08/08/25 06:41
Carbon Dioxide 18 mmol/L (22-30) L 08/08/25 06:41
BUN 59 mg/dl (9-20) H 08/08/25 06:41
Creatinine 1.8 mg/dL (0.7-1.3) H 08/08/25 06:41
eGFR 37.35 08/08/25 06:41
Glucose 79 mg/dl (70-99) 08/08/25 06:41
Calcium 8.3 mg/dl (8.4-10.2) L 08/08/25 06:41
Dpz-Z-Lzeeyqftdsy Pept 1330 pg/ml 08/07/25 11:44
Albumin 3.1 g/dl (3.5-5.0) L 08/07/25 11:44
Physical Exam
General: Awake, Alert, Oriented, AOx3 and No Distress
HEENT: EOMI, Anicteric, Conjunctivae Clear and Facial Symmetry
Respiratory: Crackels, Normal Excursion and Nonlabored Respirations
Cardiac: S1/S2 and Regular Rate/Rhythm
Breast: Deferred by me
Abdomen: Soft, Nontender and Nondistended
Musculoskeletal: Edema (2+)
Skin: No Rash and Other (chr skin changes of LEs)
Neuro: Nonfocal/Grossly Intact
Psych: Mood/afflect pleasant, Insight/judgement good and Appropriate
Data Reviewed
-
Radiology: Report Reviewed by me
Labs: Labs Reviewed by me and Discussed with Patient
Assessment/Plan
-
IMP:
Acute on chronic CHF
FELIZ -baseline cr 1.1 02/2025
Metabolic acidosis
Hyperkalemia
Hyponatremia
Proteinuria-Significant albuminuria, hypoalbuminemia
IDDM2
BPH:Self caths at home.
Paroxysmal Afib
Chronic anemia
Right knee arthritis
Plan:
A/w increased edema, noted Feliz
FELIZ-likely cardiorenal , UA UTI sample, GNB in cx
check U PCR for albuminuria
renal US noted mild right hydro suspect he may have mild obst uropathy chronically even he was doing SC
Fe def noted, prn transfusion for anemia
will also give Fe course
monitor met acidosis-improving
hyperkalemia resolved s/P lasix and Lokelma
hold ENtresto for FELIZ
hypervolemic hyponatremia improving with duiresis, cont lasi xstill , maintan FR
avoid nephrotoxins, including NSAIDs
BPs are stable
labs and wts daily
d/w pt
[2025-08-08] MEDS: LASIX 40 MG IV (15:17)
[2025-08-08] MEDS: FERRLECIT 110 MG IV (16:12)
[2025-08-08] MEDS: TESSALON PERLES 100 MG PO (16:15)
--- NOTE | 2025-08-08 16:16 | CARDSERVDEF ---
Echocardiogram with Definity completed after protocol screening completed. Allergies verified.
Patent IV site: R antecube
IV site flushed with 0.9% NaCl pre and post administration.
Diluted bolus method utilized to enhance visualization of ventricular delgado.
Total volume given: _2___ mL
Patient tolerated all procedures well without complications.
[2025-08-08 17:18] LABS: Glucose - Point of Care 95 mg/dl (70-99)
[2025-08-08] MEDS: CRESTOR 20 MG PO (17:59)
[2025-08-08] MEDS: STERILE WATER FOR INJECTION 10 ML IV (18:00)
[2025-08-08] MEDS: ROCEPHIN 1000 MG IV (18:00)
[2025-08-08] MEDS: FLOMAX 0.8 MG PO (20:08)
[2025-08-08 21:22] LABS: Glucose - Point of Care 138 mg/dl (70-99)
[2025-08-08] MEDS: LANTUS SC (21:54)
[2025-08-09] VITALS (7 sets, daily range): BP systolic 109–130; BP diastolic 49–60; PULSE 75; BMI 29.1
[2025-08-09] MEDS: HYCODAN SYRUP 5 ML PO ×2 (00:35→22:43)
[2025-08-09 00:37] LABS: Glucose - Point of Care 135 mg/dl (70-99)
[2025-08-09 08:06] LABS: Glucose - Point of Care 149 mg/dl (70-99)
[2025-08-09 08:13] LABS: Hematocrit 23.7 % (39.0-52.0); Hemoglobin 8.2 g/dL (13.0-18.0); Mean Corp Hgb Conc. 34.6 g/dL (33.0-37.0); Mean Corpuscular Volume 80.1 fL (80.0-94.0); Platelet Count 321 10^3/uL (130-400); Red Cell Dist. Width 15.5 % (11.5-14.5)
[2025-08-09 08:47] LABS: Blood Urea Nitrogen 51 mg/dl (9-20); Calcium 8.1 mg/dl (8.4-10.2); Carbon Dioxide 18 mmol/L (22-30); Chloride 110 mmol/L (98-107); Estimated Creatinine Clearance 45 ml/min; Glucose 130 mg/dl (70-99); Magnesium 2.0 mg/dl (1.6-2.3); Potassium 4.7 mmol/L (3.5-5.1); Sodium 137 mmol/L (135-145); eGFR 50.49
[2025-08-09] MEDS: HEPARIN 5000 UNITS SC (08:47)
[2025-08-09] MEDS: TESSALON PERLES 100 MG PO ×2 (08:47→20:16)
[2025-08-09] MEDS: NOVOLOG FLEXPEN-MODERATE RESISTANCE SC ×2 (08:48→17:33)
[2025-08-09] MEDS: NOVOLOG FLEXPEN 10 UNITS SC ×3 (08:48→17:42)
--- NOTE | 2025-08-09 09:20 | W.PN.HOSP.TC ---
Today's Communication/Plan
-
see bold
Assessment / Plan
Assessment / Plan
HPI: 80-year-old male past medical history of CAD, paroxysmal atrial fibrillation, HFpEF, obesity, diabetes, allergic rhinitis, BPH and self catheterizes, arthritis, ambulatory dysfunction, hypercholesteremia, presenting with progressive weakness
and lower extremity edema and abdominal distention ongoing for 3 days. �Weight gain 17 pounds from dry weight. �Nonproductive cough, rhinorrhea and postnasal drip. �No chest pain or palpitations or shortness of breath. Labs show hemoglobin 8.2. Cr
2.3. �Sodium 131. �Potassium 5.8. �Bicarb of 12. �Glucose 294. �Cardiac BNP of 1300. �Troponin negative. Chest x-ray shows no active disease.
Patient with FELIZ, hyperkalemia and non-anion gap metabolic acidosis unclear etiology. �Unclear whether this is medical renal disease versus obstructive uropathy versus cardiorenal syndrome less likely. �Patient not using excessive NSAIDs. �Patient
not overtly in congestive heart failure exacerbation, likely some volume retention from renal failure.
He was given IV Lasix, and Lokelma.
Claire catheter, check I's and O's, check renal ultrasound, bicarb push, Nephrology consulted. May benefit from gentle IV fluids with bicarb.
Anemia workup, check ferritin, iron, TIBC, B12 and folate.
Acute on chronic heart failure with preserved ejection fraction
FELIZ concerning for cardiorenal syndrome
Worsening LE edema, weight gain
-Appreciate nephrology input, continue IV Lasix prn as per nephrology
-Renal ultrasound shows mild right hydronephrosis despite self catheterization -Claire inserted in ED
-Hold Entresto and Jardiance. Cr 1.4, down from 2.3 upon admission
-Trend creatinine, trend daily weights
Possible urinary tract infection
- Urine culture with greater than 100,000 colonies of gram-negative bacilli
- Continue IV Rocephin day 2, follow-up on urine cultures
Iron deficiency anemia
- IV iron as per nephrology
Hyperkalemia
- Resolved status post Lokelma
Hypervolemic hyponatremia
- Resolved with IV Lasix
Proteinuria
Significant albuminuria, hypoalbuminemia. Concern for intrinsic renal problem/nephrotic syndrome. History of insulin dependent diabetes.
- Nephrology ordered urine PCR for albuminuria
IDDM2
- Hold Jardiance
- Continue insulin regimen of Lantus 29u HS, Novolog 12u am and noon, 10u pm
- SSI
BPH:
Self caths at home.
- Claire placed in the ED 08/07
Paroxysmal Afib:
- Reconciled med list does not contain anticoagulation although pt sates he is on Eliquis. Unsure of dose.
- Resume Eliquis 5 mg twice a day
Right knee arthritis:
- Avoid NSAIDs.
- Tylenol, oxy prn
DVT ppx: Resume Eliquis
Code status: Full code
Total time spent to see the patient on the floor, examine the patient, review data and lab results, discuss treatment plan with patient, nursing staff around 41 minutes.
Physical Exam
General: No acute distress
HEENT: Normocephalic, Atraumatic, EOMI, MMM
Respiratory: Left basilar crackles
Cardiac: Normal S1/S2, Regular Rate and Rhythm
GI: Soft, Nontender, Nondistended, Normal Bowel Sounds
Extremities: No Clubbing, Cyanosis
Bilateral lower extremity edema with skin changes reflective of chronic venous stasis dermatitis
Neuro: Nonfocal/Grossly Intact
Anticipated Discharge: 24 - 48 hours
Subjective/Interval History
-
Date of Service: August 09, 2025
Legs are less swollen. Denies CP/SOB/palp. No fever, no vomiting.
Objective Data
-
Labs:
Laboratory Results
08/09/25
07:23
WBC 8.3
Hgb 8.2 L
Hct 23.7 L
Plt Count 321
Sodium 137
Potassium 4.7
Chloride 110 H
Carbon Dioxide 18 L
BUN 51 H
Creatinine 1.4 H
Glucose 130 H
Calcium 8.1 L
Vital Signs:
Vital Signs
Temp Pulse Resp BP Pulse Ox
99.5 F 78 18 130/51 94
08/09/25 07:46 08/09/25 07:46 08/09/25 07:46 08/09/25 07:46 08/09/25 07:46
I&O
08/08/25 08/09/25 08/10/25
06:59 06:59 06:59
Intake Total 480 / 480 1170 / 1170
Output Total 3100 / 3100 4275 / 4275 400 / 400
Balance -2620 / -2620 -3105 / -3105 -400 / -400
[2025-08-09 12:00] LABS: Glucose - Point of Care 235 mg/dl (70-99)
[2025-08-09] MEDS: NOVOLOG FLEXPEN-MODERATE RESISTANCE 3 UNITS SC (12:56)
--- NOTE | 2025-08-09 13:08 | VNURNOTE ---
Home Health Liaison met with patient at bedside to discuss [facility] nurse/therapy, visits, schedule and homebound status. Patient is agreeable and understands that visits at home will be 2-3 x per week to assess and teach medical management.
Patient is aware that [facility] will contact them for start of care in 1-2 days after discharge from .
[facility] referral completed in [facility].
--- NOTE | 2025-08-09 13:15 | PN.CDI ---
CDI
- -
CDI:
Physician Documentation Request
Admit Date: 08/07/25 17:03
Dear Doctor Do,
Clinical Indicators:
Patient admitted with FELIZ.
08/08, 08/09 RN skin wound assessment: Gluteal cleft Stage 2 Pressure Injury, POA
Treatment: Silicone border foam dressing
Physician documentation of the type and location of wounds is required for compliant documentation. Based on the above clinical findings and your assessment, please provide the following in your progress note:
1. Location of the ulcer/wound, including laterality.
2. Type (etiology) of ulcer/wound:
- Pressure (decubitus) ulcer
- Other, please specify
3. If a pressure ulcer, please also include the stage* of the ulcer:
- Stage 1 - Skin intact, non-blanchable redness
- Stage 2 - Partial thickness loss of dermis, includes intact or open blister
- Stage 3 - Full thickness tissue not including bone, tendon or muscle
- Stage 4 - Full thickness tissue loss, including exposed bone, tendon or muscle
- Unstageable - Full thickness loss in which the base of the ulcer is covered by slough (yellow, boucher, laird, green or brown) and/or eschar (boucher, brown or black) in the wound bed.
- Unable to determine
Use of terms such as suspected, likely, concern for, or probable (associated with a specific diagnosis that is being evaluated, monitored, or treated as if it exists) are acceptable and can be coded in the inpatient setting, when documented at the
time of discharge.
Thank you,
EDDIE Romero RN
CDI Specialist
available via tiger text
Please use your independent medical judgment in providing your response.
*Source: National Pressure Ulcer Advisory Panel (NPUAP)
--- NOTE | 2025-08-09 13:20 | CM ---
Spoke with patient at bedside.
Pt has a Claire but his straight caths at home as needed.
Offered VN he requested [facility] . Valentine Doe notified of referral.
PLAN Home with [facility]
[2025-08-09] MEDS: FERRLECIT 110 MG IV (14:24)
[2025-08-09] MEDS: SODIUM BICARBONATE 1300 MG PO ×2 (16:17→21:33)
--- NOTE | 2025-08-09 16:24 | W.PN.NEPH.PH ---
Today's Communication / Plan
-
lasix 20mg
Assessment/Plan
-
IMP:
Acute on chronic CHF
YANELIS -baseline cr 1.1 02/2025
Metabolic acidosis
Hyperkalemia
Hyponatremia
Proteinuria-Significant albuminuria, hypoalbuminemia
IDDM2
BPH:Self caths at home.
Paroxysmal Afib
Chronic anemia
Right knee arthritis
Plan:
A/w increased edema, noted Yanelis
YANELIS-likely cardiorenal , UA UTI sample, GNB in cx
U PCR 2.2gm/gmof cr likely diabetic nephropathy
renal US noted mild right hydro suspect he may have mild obst uropathy chronically even he was doing SC-need 4-6times of SC at d/c and follow
Fe def noted, prn transfusion for anemia, cont Fe course
monitor met acidosis-stable on po bicarb
hyperkalemia resolved s/P lasix and Lokelma
hold ENtresto for YANELIS
hypervolemic hyponatremia improving with duiresis, cont lasi xstill , maintan FR
avoid nephrotoxins, including NSAIDs
given brisk response will give low dose of lasix only
BPs are stable
labs and wts daily
d/w pt
-
-
Date of Service: August 09, 2025
CC / HPI / ROS
-
Chief Complaint:
YANELIS, met acidosis
History of Present Illness:
cr down to 1.4
BP stable
wt is down
met acidosis stable 18
Review of Systems:
no cp or sob at rest
edema improving , still above dry wt
Labs
-
Labs:
WBC 8.3 10^3/uL (4.8-10.8) 08/09/25 07:23
RBC 2.96 10^6/uL (4.70-6.10) L 08/09/25 07:23
Hgb 8.2 g/dL (13.0-18.0) L 08/09/25 07:23
Hct 23.7 % (39.0-52.0) L 08/09/25 07:23
Plt Count 321 10^3/uL (130-400) 08/09/25 07:23
Sodium 137 mmol/L (135-145) 08/09/25 07:23
Potassium 4.7 mmol/L (3.5-5.1) 08/09/25 07:23
Chloride 110 mmol/L (98-107) H 08/09/25 07:23
Carbon Dioxide 18 mmol/L (22-30) L 08/09/25 07:23
BUN 51 mg/dl (9-20) H 08/09/25 07:23
Creatinine 1.4 mg/dL (0.7-1.3) H 08/09/25 07:23
eGFR 50.49 08/09/25 07:23
Glucose 130 mg/dl (70-99) H 08/09/25 07:23
Calcium 8.1 mg/dl (8.4-10.2) L 08/09/25 07:23
Phosphorus 5.8 mg/dl (2.5-4.5) H 08/09/25 07:23
Nly-H-Ohzskuaevsf Pept 1330 pg/ml 08/07/25 11:44
Albumin 3.1 g/dl (3.5-5.0) L 08/07/25 11:44
Physical Exam
-
Vital Signs:
Vital Signs
Temp Pulse Resp BP Pulse Ox
97.6 F 89 18 109/60 98
08/09/25 15:52 08/09/25 15:52 08/09/25 15:52 08/09/25 15:52 08/09/25 15:52
Cardiovascular:: Regular rate and rhythm
Respiratory:: Bilateral: CTA
Lung Excursion:: Normal
Abdomen:: Nontender and Soft
Extremity Edema:: +1: Bilateral:
Claire Catheter: Yes
[2025-08-09 16:53] LABS: Glucose - Point of Care 114 mg/dl (70-99)
[2025-08-09] MEDS: STERILE WATER FOR INJECTION 10 ML IV (17:23)
[2025-08-09] MEDS: ROCEPHIN 1000 MG IV (17:23)
[2025-08-09] MEDS: CRESTOR 20 MG PO (17:23)
[2025-08-09] MEDS: LASIX 20 MG IV (17:29)
[2025-08-09] MEDS: ELIQUIS 5 MG PO (20:09)
[2025-08-09 21:19] LABS: Glucose - Point of Care 138 mg/dl (70-99)
[2025-08-09] MEDS: LANTUS 0.29 UNITS SC (21:33)
[2025-08-09] MEDS: FLOMAX 0.8 MG PO (21:33)
[2025-08-10 03:15] VITALS: BP 119/54
[2025-08-10 06:00] VITALS: BMI 27.9
[2025-08-10 07:00] VITALS: BP 124/51
[2025-08-10 07:18] LABS: Glucose - Point of Care 146 mg/dl (70-99)
[2025-08-10] MEDS: SODIUM BICARBONATE 1300 MG PO (07:26)
[2025-08-10] MEDS: NOVOLOG FLEXPEN 12 UNITS SC ×2 (07:26→12:35)
[2025-08-10] MEDS: ELIQUIS 5 MG PO ×2 (07:26→19:52)
[2025-08-10] MEDS: NOVOLOG FLEXPEN-MODERATE RESISTANCE SC ×2 (07:26→16:58)
[2025-08-10 08:51] LABS: Hematocrit 25.3 % (39.0-52.0); Hemoglobin 8.7 g/dL (13.0-18.0); Mean Corp Hgb Conc. 34.4 g/dL (33.0-37.0); Mean Corpuscular Volume 81.6 fL (80.0-94.0); Platelet Count 322 10^3/uL (130-400); Red Cell Dist. Width 15.5 % (11.5-14.5)
--- NOTE | 2025-08-10 09:06 | W.PN.HOSP.TC ---
Today's Communication/Plan
-
see bold
Assessment / Plan
Assessment / Plan
HPI: 80-year-old male past medical history of CAD, paroxysmal atrial fibrillation, HFpEF, obesity, diabetes, allergic rhinitis, BPH and self catheterizes, arthritis, ambulatory dysfunction, hypercholesteremia, presenting with progressive weakness
and lower extremity edema and abdominal distention ongoing for 3 days. �Weight gain 17 pounds from dry weight. �Nonproductive cough, rhinorrhea and postnasal drip. �No chest pain or palpitations or shortness of breath. Labs show hemoglobin 8.2. Cr
2.3. �Sodium 131. �Potassium 5.8. �Bicarb of 12. �Glucose 294. �Cardiac BNP of 1300. �Troponin negative. Chest x-ray shows no active disease.
Patient with FELIZ, hyperkalemia and non-anion gap metabolic acidosis unclear etiology. �Unclear whether this is medical renal disease versus obstructive uropathy versus cardiorenal syndrome less likely. �Patient not using excessive NSAIDs. �Patient
not overtly in congestive heart failure exacerbation, likely some volume retention from renal failure.
He was given IV Lasix, and Lokelma.
Claire catheter, check I's and O's, check renal ultrasound, bicarb push, Nephrology consulted. May benefit from gentle IV fluids with bicarb.
Anemia workup, check ferritin, iron, TIBC, B12 and folate.
Acute on chronic heart failure with preserved ejection fraction
FELIZ concerning for cardiorenal syndrome
Worsening LE edema, weight gain
-Appreciate nephrology input, continue IV/PO Lasix prn as per nephrology
-Renal ultrasound shows mild right hydronephrosis despite self catheterization -Claire inserted in ED
-Hold Entresto and Jardiance. Cr 1.3, down from 2.3 upon admission
-Trend creatinine, trend daily weights
- Discussed with patient he will need Lasix upon discharge
Possible urinary tract infection, possibly related to intermittent bladder catheterization
- Urine culture with greater than 100,000 colonies of gram-negative bacilli
- Continue IV Rocephin day 3, follow-up on urine cultures
Iron deficiency anemia
- IV iron as per nephrology
Hyperkalemia
- Resolved status post Lokelma
Hypervolemic hyponatremia
- Resolved with IV Lasix
Proteinuria
Significant albuminuria, hypoalbuminemia. Concern for intrinsic renal problem/nephrotic syndrome. History of insulin dependent diabetes.
- Nephrology ordered urine PCR for albuminuria
IDDM2
- Hold Jardiance
- Continue insulin regimen of Lantus 29u HS, Novolog 12u am and noon, 10u pm
- SSI
BPH:
Self caths at home.
- Claire placed in the ED 08/07
- Patient and asking if they can maintain Claire upon discharge
- Recommend following up with urology in the office
Paroxysmal Afib:
- Reconciled med list does not contain anticoagulation although pt sates he is on Eliquis. Unsure of dose.
- Resumed Eliquis 5 mg twice a day
Right knee arthritis:
- Avoid NSAIDs.
- Tylenol, oxy prn
Gluteal cleft Stage 2 Pressure Injury, POA
- Wound care, frequent turning
DVT ppx: Resumed Eliquis
Code status: Full code
Total time spent to see the patient on the floor, examine the patient, review data and lab results, discuss treatment plan with patient, nursing staff around 45 minutes.
Physical Exam
General: No acute distress
HEENT: Normocephalic, Atraumatic, EOMI, MMM
Respiratory: Left basilar crackles
Cardiac: Normal S1/S2, Regular Rate and Rhythm
GI: Soft, Nontender, Nondistended, Normal Bowel Sounds
Extremities: No Clubbing, Cyanosis
Bilateral lower extremity edema with skin changes reflective of chronic venous stasis dermatitis
Neuro: Nonfocal/Grossly Intact
Anticipated Discharge: Within 24 hours
Subjective/Interval History
-
Date of Service: August 09, 2025
Patient denies shortness of breath. He has a cough. No chest pain. No fever, no vomiting.
Objective Data
-
Labs:
Laboratory Results
08/09/25
07:23
WBC 8.3
Hgb 8.2 L
Hct 23.7 L
Plt Count 321
Sodium 137
Potassium 4.7
Chloride 110 H
Carbon Dioxide 18 L
BUN 51 H
Creatinine 1.4 H
Glucose 130 H
Calcium 8.1 L
Vital Signs:
Vital Signs
Temp Pulse Resp BP Pulse Ox
98 F 76 18 109/49 95
08/09/25 11:38 08/09/25 11:38 08/09/25 11:38 08/09/25 11:38 08/09/25 11:38
I&O
08/08/25 08/09/25 08/10/25
06:59 06:59 06:59
Intake Total 480 / 480 1170 / 1170
Output Total 3100 / 3100 4275 / 4275 400 / 400
Balance -2620 / -2620 -3105 / -3105 -400 / -400
[2025-08-10 09:19] LABS: Blood Urea Nitrogen 49 mg/dl (9-20); Calcium 8.5 mg/dl (8.4-10.2); Carbon Dioxide 22 mmol/L (22-30); Chloride 111 mmol/L (98-107); Estimated Creatinine Clearance 49 ml/min; Glucose 110 mg/dl (70-99); Potassium 4.5 mmol/L (3.5-5.1); Sodium 140 mmol/L (135-145); eGFR 55.19
[2025-08-10] MEDS: TESSALON PERLES 100 MG PO (09:53)
[2025-08-10 11:05] VITALS: BP 114/52
[2025-08-10 11:17] LABS: Glucose - Point of Care 159 mg/dl (70-99)
--- NOTE | 2025-08-10 12:22 | W.PN.NEPH.PH ---
Today's Communication / Plan
-
lasix
Assessment/Plan
-
IMP:
Acute on chronic CHF
FELIZ -baseline cr 1.1 02/2025
Metabolic acidosis
Hyperkalemia
Hyponatremia
Proteinuria-Significant albuminuria, hypoalbuminemia
IDDM2
BPH:Self caths at home.
Paroxysmal Afib
Chronic anemia
Right knee arthritis
Plan:
lasix 20mg po daily
follow BMP
dc bicarb
no entresto
-
-
Date of Service: August 10, 2025
CC / HPI / ROS
-
Chief Complaint:
FELIZ, met acidosis
History of Present Illness:
cr down to 1.3
BP stable
wt is down
met acidosis resolved
Review of Systems:
no cp or sob at rest
edema improving
Labs
-
Labs:
WBC 8.8 10^3/uL (4.8-10.8) 08/10/25 08:19
RBC 3.10 10^6/uL (4.70-6.10) L 08/10/25 08:19
Hgb 8.7 g/dL (13.0-18.0) L 08/10/25 08:19
Hct 25.3 % (39.0-52.0) L 08/10/25 08:19
Plt Count 322 10^3/uL (130-400) 08/10/25 08:19
Sodium 140 mmol/L (135-145) 08/10/25 08:19
Potassium 4.5 mmol/L (3.5-5.1) 08/10/25 08:19
Chloride 111 mmol/L (98-107) H 08/10/25 08:19
Carbon Dioxide 22 mmol/L (22-30) 08/10/25 08:19
BUN 49 mg/dl (9-20) H 08/10/25 08:19
Creatinine 1.3 mg/dL (0.7-1.3) 08/10/25 08:19
eGFR 55.19 08/10/25 08:19
Glucose 110 mg/dl (70-99) H 08/10/25 08:19
Calcium 8.5 mg/dl (8.4-10.2) 08/10/25 08:19
Phosphorus 5.8 mg/dl (2.5-4.5) H 08/09/25 07:23
Jxe-C-Ulrpgurrcdw Pept 1330 pg/ml 08/07/25 11:44
Albumin 3.1 g/dl (3.5-5.0) L 08/07/25 11:44
Physical Exam
-
Vital Signs:
Vital Signs
Temp Pulse Resp BP Pulse Ox
98.2 F 71 16 124/51 94
08/10/25 07:00 08/10/25 07:00 08/10/25 07:00 08/10/25 07:00 08/10/25 07:00
Cardiovascular:: Regular rate and rhythm
Respiratory:: Bilateral: CTA
Lung Excursion:: Normal
Abdomen:: Nontender and Soft
Bowel Sounds:: Normal
Extremity Edema:: +1: Bilateral:
[2025-08-10] MEDS: NOVOLOG FLEXPEN-MODERATE RESISTANCE 1 UNITS SC (12:34)
[2025-08-10] MEDS: FERRLECIT 110 MG IV (13:45)
[2025-08-10] MEDS: LASIX 20 MG PO (13:45)
--- NOTE | 2025-08-10 14:27 | PN.CDI ---
CDI
- -
CDI:
Physician Documentation Request
Admit Date: 08/07/25 17:03
Dear Doctor Do,
Clinical Indicators:
Patient admitted with acute on chronic HFpEF.
H & P, '...BPH and patient self catheterizes...'
08/09 PN, 'Possible urinary tract infection - Urine culture with greater than 100,000 colonies of gram-negative bacilli'
Please clarify the the likely relationship between the UTI and self catheterization:
Yes, UTI is related to/associated with/due to intermittent catheterization
No, UTI is not related to/associated with/due to intermittent catheterization but it is due to ___. (Please specify)
Unable to determine
Use of terms such as suspected, likely, concern for, or probable (associated with a specific diagnosis that is being evaluated, monitored, or treated as if it exists) are acceptable and can be coded in the inpatient setting, when documented at the
time of discharge.
Thank you,
EDDIE Romero RN
CDI Specialist
available via tiger text
Please use your independent medical judgment in providing your response.
--- NOTE | 2025-08-10 14:51 | CM ---
Met with pt at bedside. Chart reviewed. No change to discharge plan. to [facility] at discharge.
Plan: D/c home with [facility]
[2025-08-10 15:05] VITALS: BP 120/56
[2025-08-10 16:54] LABS: Glucose - Point of Care 132 mg/dl (70-99)
[2025-08-10] MEDS: CRESTOR 20 MG PO (16:58)
[2025-08-10] MEDS: STERILE WATER FOR INJECTION 10 ML IV (16:58)
[2025-08-10] MEDS: NOVOLOG FLEXPEN 10 UNITS SC (16:59)
[2025-08-10] MEDS: ROCEPHIN 1000 MG IV (16:59)
[2025-08-10] MEDS: HYCODAN SYRUP 5 ML PO (21:42)
[2025-08-10] MEDS: FLOMAX 0.8 MG PO (21:42)
[2025-08-10 21:48] LABS: Glucose - Point of Care 116 mg/dl (70-99)
[2025-08-10] MEDS: LANTUS 0.29 UNITS SC (22:38)
[2025-08-10 23:32] VITALS: BP 128/58
[2025-08-11 03:23] LABS: Glucose - Point of Care 141 mg/dl (70-99)
[2025-08-11 06:00] VITALS: BMI 27.9
[2025-08-11 07:25] VITALS: BP 115/55
[2025-08-11 07:31] LABS: Glucose - Point of Care 133 mg/dl (70-99)
[2025-08-11] MEDS: NOVOLOG FLEXPEN-MODERATE RESISTANCE SC ×2 (07:53→12:11)
[2025-08-11] MEDS: TESSALON PERLES 100 MG PO (08:22)
[2025-08-11] MEDS: NOVOLOG FLEXPEN 12 UNITS SC ×2 (08:22→12:42)
[2025-08-11] MEDS: ELIQUIS 5 MG PO (08:22)
[2025-08-11] MEDS: LASIX 20 MG PO (08:23)
[2025-08-11] MEDS: FLUSH (NSS) 1 FLUSH IV (08:23)
--- NOTE | 2025-08-11 08:59 | W.PN.HOSP.TC ---
Today's Communication/Plan
-
see bold
Assessment / Plan
Assessment / Plan
HPI: 80-year-old male past medical history of CAD, paroxysmal atrial fibrillation, HFpEF, obesity, diabetes, allergic rhinitis, BPH and self catheterizes, arthritis, ambulatory dysfunction, hypercholesteremia, presenting with progressive weakness
and lower extremity edema and abdominal distention ongoing for 3 days. �Weight gain 17 pounds from dry weight. �Nonproductive cough, rhinorrhea and postnasal drip. �No chest pain or palpitations or shortness of breath. Labs show hemoglobin 8.2. Cr
2.3. �Sodium 131. �Potassium 5.8. �Bicarb of 12. �Glucose 294. �Cardiac BNP of 1300. �Troponin negative. Chest x-ray shows no active disease.
Patient with FELIZ, hyperkalemia and non-anion gap metabolic acidosis unclear etiology. �Unclear whether this is medical renal disease versus obstructive uropathy versus cardiorenal syndrome less likely. �Patient not using excessive NSAIDs. �Patient
not overtly in congestive heart failure exacerbation, likely some volume retention from renal failure.
He was given IV Lasix, and Lokelma.
Claire catheter, check I's and O's, check renal ultrasound, bicarb push, Nephrology consulted. May benefit from gentle IV fluids with bicarb.
Anemia workup, check ferritin, iron, TIBC, B12 and folate.
Acute on chronic heart failure with preserved ejection fraction
FELIZ concerning for cardiorenal syndrome
Worsening LE edema, weight gain
-Appreciate nephrology input, resolved status post IV Lasix
-Renal ultrasound shows mild right hydronephrosis despite self catheterization -Claire inserted in ED
-Cr 1.3, down from 2.3 upon admission
-Trend creatinine, trend daily weights
-Nephrology recommends discharge on Lasix 20 mg daily, permanently discontinue Entresto
-Follow-up with his usual electrical sign servicer in the office
Possible urinary tract infection, possibly related to intermittent bladder catheterization
- Urine cultures growing Klebsiella, sensitive to Rocephin and Augmentin
- Will discharge on Augmentin to complete a 7-day course
Iron deficiency anemia
- He received IV iron ordered by nephrology in the hospital
�Will discharge on ferrous sulfate to be taken every other day
Hyperkalemia
- Resolved status post Lokelma
Hypervolemic hyponatremia
- Resolved with IV Lasix
Proteinuria
Significant albuminuria, hypoalbuminemia. Concern for intrinsic renal problem/nephrotic syndrome. History of insulin dependent diabetes.
- Nephrology ordered urine PCR for albuminuria
IDDM2
- Hold Jardiance
- Continue insulin regimen of Lantus 29u HS, Novolog 12u am and noon, 10u pm
- SSI
BPH:
Self caths at home.
- Claire placed in the ED 08/07
- Patient and asking if they can maintain Claire upon discharge
- Recommend following up with urology in the office
Paroxysmal Afib:
- Reconciled med list does not contain anticoagulation although pt sates he is on Eliquis. Unsure of dose.
- Resumed Eliquis 5 mg twice a day -new prescription sent to his pharmacy
Right knee arthritis:
- Avoid NSAIDs.
- Tylenol, oxy prn
Gluteal cleft Stage 2 Pressure Injury, POA
- Wound care, frequent turning
DVT ppx: Resumed Eliquis
Code status: Full code
Physical Exam
General: No acute distress
HEENT: Normocephalic, Atraumatic, EOMI, MMM
Respiratory: Left basilar crackles
Cardiac: Normal S1/S2, Regular Rate and Rhythm
GI: Soft, Nontender, Nondistended, Normal Bowel Sounds
Extremities: No Clubbing, Cyanosis
Improving bilateral lower extremity edema with skin changes reflective of chronic venous stasis dermatitis
Neuro: Nonfocal/Grossly Intact
Anticipated Discharge: Today
Subjective/Interval History
-
Date of Service: August 11, 2025
Patient continues to have a mild cough. Denies chest pain, denies shortness of breath. No fever, no vomiting.
Objective Data
-
Labs:
Laboratory Results
08/11/25
06:46
Sodium Pending
Potassium Pending
Chloride Pending
Carbon Dioxide Pending
BUN Pending
Creatinine Pending
Glucose Pending
Calcium Pending
Vital Signs:
Vital Signs
Temp Pulse Resp BP Pulse Ox
97.7 F 83 18 115/55 96
08/11/25 07:25 08/11/25 08:23 08/11/25 07:25 08/11/25 08:23 08/11/25 07:25
I&O
08/10/25 08/11/25 08/12/25
06:59 06:59 06:59
Intake Total 1070 / 1070 970 / 970
Output Total 3250 / 3250 2650 / 2650
Balance -2180 / -2180 -1680 / -1680
[2025-08-11 09:58] LABS: Blood Urea Nitrogen 47 mg/dl (9-20); Calcium 8.0 mg/dl (8.4-10.2); Carbon Dioxide 22 mmol/L (22-30); Chloride 108 mmol/L (98-107); Estimated Creatinine Clearance 49 ml/min; Glucose 113 mg/dl (70-99); Potassium 4.3 mmol/L (3.5-5.1); Sodium 137 mmol/L (135-145); eGFR 55.19
[2025-08-11] MEDS: AUGMENTIN 875 MG/125 MG 1 TABLET PO (10:38)
--- NOTE | 2025-08-11 11:11 | W.DCSUMMARY ---
Discharge Summary
Discharge Data
Date of Admission: 08/07/25
Date of Discharge: 08/11/25
-
Pending Results: No
Hospital Course
Discharge diagnosis:
Acute on chronic heart failure with a preserved ejection fraction
Acute kidney injury concerning for cardiorenal syndrome
Worsening lower extremity edema and weight gain
Probable urinary tract infection possibly related to intermittent bladder catheterization
Iron deficiency anemia
Hyperkalemia
Hypervolemic hyponatremia
Diabetes
Benign prostatic hypertrophy
Chronic urinary retention requiring self cath versus Claire
Paroxysmal atrial fibrillation
Gluteal cleft stage II pressure injury, present upon admission
Consults: Nephrology
Renal bladder ultrasound:
1. Mild right hydronephrosis.
2. Right renal cyst without suspicious features as seen previously.
3. Claire catheter in position. Diffuse wall thickening/trabeculation of the urinary bladder suggesting chronic outlet obstruction or neurogenic bladder. The suspected mass seen on the previous examination is not identified on this exam.
Hospital course:
80-year-old male with a past medical history of atrial fibrillation, BPH with chronic urinary retention requiring self-catheterization, and diabetes was admitted for acute heart failure with a preserved ejection fraction and acute kidney injury
likely due to cardiorenal syndrome. Patient was seen in conjunction with nephrology. He was diuresed with IV Lasix. His creatinine normalized. It was 2.3 upon admission, and was 1.3 in the day of discharge. Nephrology recommends discharge on
Lasix 20 mg daily. He is to permanently discontinue his Entresto.
Patient also had an acute urinary tract infection. Urine cultures grew out Klebsiella. He received IV Rocephin while in the hospital, and will be discharged on Augmentin to complete a 7-day course.
Patient has iron deficiency anemia. He received IV iron while in the hospital. He will be discharged on oral iron to be taken every other day.
Patient self caths at home. His renal ultrasound does show mild hydronephrosis. Since he will be on Lasix, he wished to be discharged home with a Claire. He can follow-up with his usual urologist in the office.
Patient is medically stable and cleared by nephrology for discharge. He needs to follow-up with his usual process control programmer in the office in 2-3 weeks, and his primary care provider in 1 week.
Disposition: Home with home care
Discharge planning: Required 34 minutes
Discharge Plan
-
Patient Disposition: Home with Home Care
Discharge Diagnosis/Procedures: Acute heart failure with a preserved ejection fraction, acute kidney injury, acute urinary tract infection, chronic urinary retention
Condition: Good
Diet: Low Fat, Low Cholesterol, 2 Gram Sodium and Diabetic, Carb Controlled
Activity: As tolerated
Driving Restrictions: As prior to admission
Activity Restrictions/Additional Instructions:
Nephrology started you on Lasix/furosemide 20 mg daily.
Your blood count was low, recommend you take ferrous sulfate/iron supplements every other day to help you make new blood.
Iron supplements can cause constipation, or dark stools. Please take a laxative as needed.
Please avoid all [id number] NSAID medications such as ibuprofen, naproxen, Aleve, Motrin, Advil.
These medications will worsen your kidney function.
Please follow-up with your usual process control programmer & urologist in the office in 1-2 weeks, and your primary care doctor in 1 week.
Referrals:
Malcom Guevara DO [Family Provider, General] - in one week
Prescriptions:
New
amoxicillin-pot clavulanate 875-125 mg Tablet
1 tab PO Q12 4 Days Qty: 8 0RF
furosemide 20 mg Tablet
20 mg PO DAILY Qty: 30 0RF
hydrocodone-homatropine [Hycodan] 5-1.5 mg/5 mL (5 mL) Solution
5 ml PO Q4HPRN PRN (Reason: cough) Qty: 200 0RF
ferrous sulfate 325 mg (65 mg iron) tablet
325 mg PO Q OTHER DAY Qty: 30 0RF
Eliquis 5 mg tablet
5 mg PO BID Qty: 60 0RF
Continued
tamsulosin 0.4 mg capsule
0.8 mg PO HS
rosuvastatin 20 mg tablet
20 mg PO QPM
finasteride 1 mg Tablet
1 mg PO DAILY
omega 8-tua-pqr-fish oil [Fish Oil] 1,000 (120-180) mg Capsule
1 cap PO DAILY
garlic 200 mg Tablet
200 mg PO DAILY
Jardiance 25 mg Tablet
25 mg PO DAILY
insulin aspart U-100 [Novolog U-100 Insulin aspart] 100 unit/mL Solution
12 sliding scale dose SC QPM
insulin aspart U-100 [Novolog U-100 Insulin aspart] 100 unit/mL solution
14 sliding scale dose SC BID
insulin glargine [Basaglar KwikPen U-100 Insulin] 100 unit/mL (3 mL) insulin pen
29 unit SC HS
Discontinued
sacubitril-valsartan [Entresto] 49-51 mg Tablet
1 tab PO BID 30 Days Qty: 30 0RF
ibuprofen [Advil] 200 mg Tablet
400 mg PO HSPRN PRN (Reason: mild pain)
Discharge Orders:
Discharge Patient (As Directed); Ordered 08/11/25
Ordered By: Gregory Lezama
Discharge Date and Time
Discharge Date/Time: 08/11/25 16:21
Print Language: CITIZEN OF [place]
--- NOTE | 2025-08-11 11:39 | CM ---
Patient has been medically cleared for discharge to home with MARIA L RN, PT/OT services. Patient has arranged for transport home. IMM completed.
[2025-08-11 11:51] VITALS: BP 121/53
[2025-08-11 12:04] LABS: Glucose - Point of Care 132 mg/dl (70-99)
--- NOTE | 2025-08-11 14:05 | W.PN.NEPH.PH ---
Today's Communication / Plan
-
lasix
Assessment/Plan
-
IMP:
Acute on chronic CHF
FELIZ -baseline cr 1.1 02/2025
Metabolic acidosis
Hyperkalemia
Hyponatremia
Proteinuria-Significant albuminuria, hypoalbuminemia
IDDM2
BPH:Self caths at home.
Paroxysmal Afib
Chronic anemia
Right knee arthritis
Plan:
lasix 20mg po daily
follow BMP
no bicarb
ok to restart jardiance
no entresto
for dc
-
-
Date of Service: August 11, 2025
CC / HPI / ROS
-
Chief Complaint:
FELIZ, met acidosis
History of Present Illness:
cr down to 1.3 stable
BP stable
wt is down
met acidosis resolved
Review of Systems:
no cp or sob at rest
edema improving
Labs
-
Labs:
WBC 8.8 10^3/uL (4.8-10.8) 08/10/25 08:19
RBC 3.10 10^6/uL (4.70-6.10) L 08/10/25 08:19
Hgb 8.7 g/dL (13.0-18.0) L 08/10/25 08:19
Hct 25.3 % (39.0-52.0) L 08/10/25 08:19
Plt Count 322 10^3/uL (130-400) 08/10/25 08:19
Sodium 137 mmol/L (135-145) 08/11/25 06:46
Potassium 4.3 mmol/L (3.5-5.1) 08/11/25 06:46
Chloride 108 mmol/L (98-107) H 08/11/25 06:46
Carbon Dioxide 22 mmol/L (22-30) 08/11/25 06:46
BUN 47 mg/dl (9-20) H 08/11/25 06:46
Creatinine 1.3 mg/dL (0.7-1.3) 08/11/25 06:46
eGFR 55.19 08/11/25 06:46
Glucose 113 mg/dl (70-99) H 08/11/25 06:46
Calcium 8.0 mg/dl (8.4-10.2) L 08/11/25 06:46
Phosphorus 5.8 mg/dl (2.5-4.5) H 08/09/25 07:23
Tve-M-Fsilwihcebs Pept 1330 pg/ml 08/07/25 11:44
Albumin 3.1 g/dl (3.5-5.0) L 08/07/25 11:44
Physical Exam
-
Vital Signs:
Vital Signs
Temp Pulse Resp BP Pulse Ox
98.4 F 67 18 121/53 96
08/11/25 11:51 08/11/25 11:51 08/11/25 11:51 08/11/25 11:51 08/11/25 11:51
Cardiovascular:: Regular rate and rhythm
Respiratory:: Bilateral: CTA
Lung Excursion:: Normal
Abdomen:: Nontender and Soft
Bowel Sounds:: Normal
Extremity Edema:: +1: Bilateral:
[2025-08-11] MEDS: FERRLECIT 110 MG IV (14:10)
[2025-08-11 15:28] VITALS: BP 116/54
--- NOTE | 2025-08-11 15:30 | PTCARENOTE ---
Provided pt and pt's with education on urinary catheter care, switching large drainage bag to leg bag etc. Pt and his indicated that they are very familiar with providing the catheter care as they have done it before. Extra supplies sent
home with pt.
== END 2025-08-11 16:21 | disposition home health service (06) | DRG 698 ==
LOC: 4 EAST ACU 17:03
PROVIDERS: Emergency Medicine; Student in an Organized Health Care Education/Training Program; ADMITTING PHYSICIAN Hospitalist; ATTENDING PHYSICIAN Family Medicine; EMERGENCY PHYSICIAN Emergency Medicine; FAMILY PHYSICIAN General Practice; OTHER PHYSICIAN Internal Medicine
DX: T83.511A Infection and inflammatory reaction due to indwelling urethral catheter, initial encounter (principal); I50.33 Acute on chronic diastolic (congestive) heart failure; N17.9 Acute kidney failure, unspecified; I13.0 Hypertensive heart and chronic kidney disease with heart failure and stage 1 through stage 4 chronic kidney disease, or unspecified chronic kidney disease; E87.20 Acidosis, unspecified; E87.1 Hypo-osmolality and hyponatremia; N13.30 Unspecified hydronephrosis; N39.0 Urinary tract infection, site not specified; E87.5 Hyperkalemia; D50.9 Iron deficiency anemia, unspecified; D63.1 Anemia in chronic kidney disease; N18.9 Chronic kidney disease, unspecified; E11.22 Type 2 diabetes mellitus with diabetic chronic kidney disease; I48.0 Paroxysmal atrial fibrillation; L89.152 Pressure ulcer of sacral region, stage 2; Y73.2 Prosthetic and other implants, materials and accessory gastroenterology and urology devices associated with adverse incidents; Y84.6 Urinary catheterization as the cause of abnormal reaction of the patient, or of later complication, without mention of misadventure at the time of the procedure; I25.10 Atherosclerotic heart disease of native coronary artery without angina pectoris; B96.1 Klebsiella pneumoniae [K. pneumoniae] as the cause of diseases classified elsewhere; E78.00 Pure hypercholesterolemia, unspecified; E88.09 Other disorders of plasma-protein metabolism, not elsewhere classified; N40.1 Benign prostatic hyperplasia with lower urinary tract symptoms; R33.9 Retention of urine, unspecified; M17.11 Unilateral primary osteoarthritis, right knee; R80.9 Proteinuria, unspecified; Z79.4 Long term (current) use of insulin; Z79.899 Other long term (current) drug therapy
CPT/HCPCS: 71046; 76770; 80048; 80053; 81003; 81015; 82570; 82607; 82728; 82746; 82805; 82962; 83036; 83540; 83550; 83735; 83880; 84100; 84156; 84300; 84484; 85025; 85027; 87077; 87086; 87186; 93005; 93308; 93321; 93325; 96374; 97162; 99285; J2916; Q9957